=== PATIENT | female | born 1945 | race Caucasian/White ===

== ENCOUNTER → 2019-06-13 09:37 | Outpatient (CLI) | payer MEDICARE, OTHER, SELFPAY ==
--- NOTE | 2019-06-13 09:41 | US_ITS ---
STUDY: ABDOMINAL ULTRASOUND - RIGHT UPPER QUADRANT REASON FOR VISIT: Female, 74 years old right upper quadrant pain. TECHNIQUE: Ultrasound evaluation of the right upper quadrant was performed with real-time and static guan-scale imaging. TECHNICAL QUALITY: Adequate. Examination limited by bowel gas. COMPARISON: None. FINDINGS: Liver: The liver measures 14.8 cm. There is normal echogenicity of the liver. The bile ducts are within normal limits. There is hepatic color flow. The direction of portal flow is hepatopetal. There is no demonstrated mass lesion. Gallbladder: The gallbladder is not visualized. Common Bile Duct (C.B.D.): The common bile duct measures 5.0 mm. Pancreas: Normal size of the head, body and tail of the pancreas. There is normal echogenicity of the pancreas. There is no demonstrated pancreatic mass or cyst. Right Kidney: Normal size of the right kidney. The right kidney measures 8.9 cm in length. Normal renal cortex. There is no demonstrated renal mass or cyst. There is no right hydronephrosis. US/Abdomen Limited IMPRESSION: Nonvisualization of the gallbladder otherwise within normal limits examination. Electronically Signed: Mercedez Soto MD at 16:24 EST Tel , Service support ,
== END ==
PROVIDERS: Family Provider Family Medicine; PCP Family Medicine
DX: R10.84 Generalized abdominal pain (principal); R11.0 Nausea; R63.0 Anorexia
CPT/HCPCS: 76705

== ENCOUNTER → 2021-06-27 14:03 | Outpatient (CLI) | payer MEDICARE, OTHER, SELFPAY ==
--- NOTE | 2021-06-27 14:07 | BI_ITS ---
MAMMOGRAPHY - BILATERAL SCREENING REASON FOR EXAM: Female, 76 years old. Routine annual screening examination. PERTINENT HISTORY: Non-contributory. TECHNIQUE: Digital bilateral breast anil (3D mammographic acquisition) in the CC and MLO projections. 2-D mediolateral oblique (MLO) and craniocaudad (CC) views of both breasts were obtained. CAD: Full Field Digital Mammography with Computer Added Detection was performed. COMPARISON: Comparison is made with prior axillary examination 05/19/2019. FINDINGS: Breast Composition: There are scattered areas of fibroglandular density. There is a 5.3 mm x 5 mm well-defined nodule in the upper slightly medial aspect of the right breast. Correlation with ultrasound is recommended. Stable benign-appearing bilateral axillary lymph nodes. No other significant abnormalities are identified. BI/SCRN MAMM (CAD)W/ANIL BILAT IMPRESSION: 5.3 mm x 5 mm well-defined nodule in the upper slightly medial aspect of the right breast. Correlation with ultrasound is recommended. ASSESSMENT CATEGORY: BIRADS Category 0: Incomplete. Need additional imaging evaluation. A letter regarding these results will be sent to the patient by the facility within 30 days. Approximately 10% of breast cancers are not detected by mammography. A normal mammogram should not delay biopsy of a clinically suspicious abnormality. [id number] Electronically Signed: Jovan Reddy MD at 15:38 EST , Service support ,
--- NOTE | 2021-06-27 14:11 | BD_ITS ---
STUDY: DUAL ENERGY X-RAY ABSORPTIOMETRY / DXA REASON FOR EXAM: Female, 76 years old. [id number] TECHNIQUE: Bone Mineral Density (BMD) measurements of lumbar spine and bilateral hips were obtained. COMPARISON: None. FINDINGS: Lumbar Spine (L1-L4): g/cm2 (1.003) / T-score (-0.4) / Z-score (2.1) Findings are suggestive of normal bone density with a low fracture risk. Left Femur Total: g/cm2 (0.759) / T-score (-1.5) / Z-score (0.4) Left Femoral Neck: g/cm2 (0.607) / T-score (-2.2) / Z-score (0.0) Right Femur Total: g/cm2 (0.856) / T-score (-0.7) / Z-score (1.2) Right Femoral Neck: g/cm2 (0.681) / T-score (-1.5) / Z-score (0.7) BD/Dexa Bone Density Study IMPRESSION: The patient is considered osteopenic as outlined below according to World Osmin Organization (WHO) criteria with a high fracture risk. Reference Information: The T-score is the number of standard deviations above or below the standard which is normal for young adults at their peak bone mineral density. The World Health Organization (WHO) interprets the T-scores as follows: Above -1 Normal bone density Between -1 and -2.5 Osteopenia Equal to / or below -2.5 Osteoporosis As a practical clinical guideline, osteopenia may be graded as follows: Mild -1 through -1.5 Moderate -1.6 through -2.0 Severe -2.1 through -2.4 The Z-score is the number of standard deviations above or below age-matched controls. A Z-score of less than -1.5 would be considered abnormal. References: 1. NIH Osteoporosis and Related Bone Diseases www osteo.org 2. International Society for Clinical Densitometry www iscd.org 3. National Osteoporosis Foundation www nof.org Electronically Signed: Jovan Reddy MD at 14:05 EST , Service support ,
== END ==
PROVIDERS: PCP Family Medicine; Visit Provider Physician Assistant
DX: N95.1 Menopausal and female climacteric states (principal); N95.9 Unspecified menopausal and perimenopausal disorder; Z12.31 Encounter for screening mammogram for malignant neoplasm of breast; Z13.820 Encounter for screening for osteoporosis
CPT/HCPCS: 77063; 77067; 77080

== ENCOUNTER → 2021-07-02 10:51 | Outpatient (CLI) | payer MEDICARE, OTHER, SELFPAY ==
--- NOTE | 2021-07-02 10:55 | US_ITS ---
STUDY: ULTRASOUND BREAST - RIGHT REASON FOR EXAM: Female, 76 years old. Abnormal screening mammogram. TECHNIQUE: Axial and longitudinal images of the RIGHT breast were performed with a high resolution ultrasound transducer. # OF IMAGES: 14 COMPARISON: Comparison is made with prior mammogram dated 06/27/2021. FINDINGS: RIGHT Breast: 2 cysts are seen adjacent to each other at the 1 o''clock position the breast at 4 cm from the nipple. The larger cyst measures 3 mm x 3 mm x 3 mm. US/Breast Limited Unilateral IMPRESSION: The mammographic abnormality corresponds to 2 small adjacent cysts at the 1 o''clock position breast at 4 cm from the nipple. ASSESSMENT CATEGORY: BIRADS Category 2: Benign. A letter regarding these results will be sent to the patient by the facility within 30 days. Electronically Signed: Jovan Reddy MD at 12:39 EST , Service support ,
== END ==
PROVIDERS: PCP Family Medicine; Visit Provider Physician Assistant
DX: R92.2 Inconclusive mammogram (principal)
CPT/HCPCS: 76642

== ENCOUNTER 2022-05-06 08:09 | Inpatient (IN) | payer MEDICARE, OTHER, SELFPAY ==
[2022-05-06] VITALS (9 sets, daily range): BP systolic 143–176; BP diastolic 52–65; PULSE 62–75; RESP 14–16; TEMP 36.2–36.8; O2SAT 94–99; BMI 26.2; BMI 26.7
--- NOTE | 2022-05-06 08:14 | NURSING ---
NO OLD EKGS
--- NOTE | 2022-05-06 08:28 | EKG12_ITS ---
Test Reason : CP Blood Pressure : / mmHG Vent. Rate : 065 BPM Atrial Rate : 065 BPM P-R Int : 164 ms QRS Dur : 096 ms QT Int : 420 ms P-R-T Axes : 042 -08 060 degrees QTc Int : 436 ms Normal sinus rhythm Normal ECG Confirmed by JASON ROPER, ELIAS ([id number]), order editor NABILA GRIFFITHS ([id number]) on 05/08/2022 12:32:33 PM Referred By: MYRIAM Confirmed By:ELIAS GOMEZ MD
--- NOTE | 2022-05-06 08:28 | RAD_ITS ---
STUDY: X-RAY CHEST REASON FOR EXAM: Female, 77 years old. Chest pain TECHNIQUE: Single AP portable view of the chest. COMPARISON: None. FINDINGS: EKG electrodes are seen. There is elevation of the right hemidiaphragm. Mild increased markings at the right lung base suggestive of atelectasis. The left lung is clear. There is no demonstrated pleural abnormality. Normal size heart. Normal mediastinum and cherrie. Normal visualized pulmonary arteries. There is atherosclerotic calcification of the aortic arch with tortuosity. Normal visualized thoracic spine. Normal visualized ribs, clavicles, and shoulders. There is no demonstrated abnormality of the visualized soft tissue structures of the upper abdomen. RAD/Chest 1 View (Portable) IMPRESSION: There is elevation of the right hemidiaphragm with mild increased markings suggestive of a basilar atelectasis. The left lung is clear. Electronically Signed: Jovan Reddy MD at 8:57 EDT ,
--- NOTE | 2022-05-06 08:30 | EDS_ITS ---
HPI History of Present Illness Chief Complaint: Chest Pain Informant: patient Onset/Context/Timing Onset: Weeks Activity at onset: exertion Timing: Intermittent Quality: Positive for Tightness Location: Right Chest and Left Chest Current Severity: Gone Maximum Severity: Moderate Narrative Narrative: Patient present secondary to chest pain. She reports with activity over the past 3 weeks she will get a tightness across her upper chest to the shoulders and down to her elbows bilaterally. She states occasionally will go into her back. It seems to come on with exertion and gets better with rest. She will have mild shortness of breath as well. [facility] Medical History (Updated 05/06/22 @ 10:[address] Violet Remy MD) Borderline diabetes GERD (gastroesophageal reflux disease) High cholesterol Hypertension Home Medications amlodipine 5 mg tablet (Norvasc) 5 mg PO QHS 05/06/22 [History Last Taken Unknown] aspirin 81 mg chewable tablet (Aspirin Childrens) 81 mg PO DAILY 05/06/22 [History Last Taken Unknown] losartan 100 mg tablet 100 mg PO DAILY 05/06/22 [History Last Taken Unknown] metoprolol succinate 100 mg tablet,extended release 24 hr 50 mg PO DAILY 05/06/22 [History Last Taken Unknown] omeprazole 20 mg tablet,delayed release 20 mg PO DAILY 05/06/22 [History Last Taken Unknown] rosuvastatin 5 mg tablet 5 mg PO DAILY 05/06/22 [History Last Taken Unknown] Allergy/AdvReac Type Severity Reaction Status Date / Time No Known Allergies Allergy Verified 05/06/22 08:10 Social History Smoking Status: Never smoker ROS ROS ED Constitutional Constitutional ED: Denies chills or fever(s) Eyes Eyes: Denies change in vision or discharge from eye(s) ENT ENT ED: Denies discharge from eye(s), rhinorrhea or sore throat Cardiovascular Cardiovascular: Reports chest pain; Denies palpitations Respiratory/Chest Respiratory/Chest: Denies cough or dyspnea Gastrointestinal Gastrointestinal: Denies abdominal pain, nausea or vomiting Genitourinary Genitourinary ED: Denies dysuria Musculoskeletal Musculoskeletal: Reports back pain; Denies extremity pain Integumentary Denies Abrasions or rash Neurologic Neurologic: Denies headache(s) or weakness Allergic/Immunologic Allergic/Immunologic ED: Denies lip swelling or urticaria EXAM Physical Exam Const Vital Signs: 05/06/22 08:10 05/06/22 08:27 05/06/22 08:36 Temperature 97.1 F L Temperature Source Temporal Pulse Rate 73 Respiratory Rate 14 Respiratory Effort Normal Non-Labored Blood Pressure 150/58 H Blood Pressure Mean 88 Pulse Ox 99 Oxygen Delivery Method Room Air Room Air Positive well nourished and well developed General Appearance ED: well developed HEENT Reports normocephalic and head/scalp atraumatic Eyes PERRL and EOMs intact bilaterally Neck supple Chest Wall inspection of chest normal and palpation of chest normal Resp normal respiratory effort and clear to auscultation bilaterally Cardio regular rate and regular rhythm GI normal to inspection, nondistended, normoactive bowel sounds Palpation: soft Extremity normal to inspection Neuro oriented x3 and no sensory deficits noted Sensorium / Orientation: alert Motor Exam: strength 5/5 throughout Psych mental status grossly normal Skin no rashes or lesions noted Heart Score History: Highly Suspicious ECG: Normal Age: >/= 65 years Risk Factors: 1 or 2 Risk Factors Troponin: </= Normal Limit Score: 5 MDM MDM MDM Narrative Medical decision making narrative: 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 Lab work, EKG, chest x- ray obtained. Lab Data Attestation: I reviewed the patient's lab results. Labs: Laboratory Results - last 24 hr 05/06/22 05/06/22 08:27 08:27 WBC 5.1 RBC 4.28 Hgb 12.8 Hct 38.4 MCV 89.7 MCH 29.9 MCHC 33.3 RDW Std Deviation 43.5 RDW Coeff of Ana 13.2 Plt Count 179 MPV 11.4 Immature Gran % (Auto) 0.400 Neut % (Auto) 47.0 Lymph % (Auto) 38.4 [place] % (Auto) 9.9 Eos % (Auto) 3.1 Baso % (Auto) 1.2 H Absolute Neuts (auto) 2.4 Absolute Lymphs (auto) 1.97 Nucleated RBC % 0 Sodium 140 Potassium 3.6 Chloride 109 H Carbon Dioxide 26.0 Anion Gap 5 BUN 19 H Creatinine 1.01 Estim Creat Clear Calc 37.97 Est GFR (MDRD) Af Amer 68 Est GFR (MDRD) Non-Af 56 L BUN/Creatinine Ratio 18.8 Glucose 106 Calcium 9.2 Troponin I High Sens 10 Radiography Chest X-Ray - ED: 1 View, Read by ED Physician, Normal, Heart, Lungs and Mediastinum Diagnostic Testing: Clinical Impression(s) from Imaging Studies Chest X-Ray 05/06/22 08:28 IMPRESSION: There is elevation of the right hemidiaphragm with mild increased markings suggestive of a basilar atelectasis. The left lung is clear. Electronically Signed: Jovan Reddy MD at 8:57 EDT , EKG Initial EKG: Attestation: I personally reviewed and interpreted this EKG as follows: Interpretation: Sinus Rhythm (Sinus at 65 with no acute ischemia.) Treatment and Re-Evaluation Narrative: Repeat evaluation patient is resting comfortably. Lab work reviewed with patient and unremarkable at this time. Troponin is normal at 10. Chest x-ray per my interpretation reveals no acute findings. EKG reveals no obvious ischemia. Patient's story is extremely concerning for cardiac disease. She also tells me that she is avoiding doing certain activities because she knows she will get chest pain while doing them. I do feel that she would benefit from observation and stress test to rule out cardiac cause of her symptoms. I will speak with the hospitalist. Discharge Plan Triage Chief Complaint: Chest Pain ED Provider: Violet Remy Dx/Rx/DC Orders Clinical Impression: Chest pain Prescriptions: No Action metoprolol succinate 100 mg tablet extended release 24 hr 50 mg PO DAILY amlodipine [Norvasc] 5 mg tablet 5 mg PO QHS aspirin [Aspirin Childrens] 81 mg tablet,chewable 81 mg PO DAILY Label Comments: 1 tablet by mouth once a day losartan 100 mg tablet 100 mg PO DAILY rosuvastatin 5 mg tablet 5 mg PO DAILY omeprazole 20 mg tablet,delayed release (DR/EC) 20 mg PO DAILY Label Comments: 1 tablet by mouth once a day Primary Care Provider: Feliciano Aguiar Referrals: Feliciano Aguiar MD [Primary Care Provider] - Disposition Disposition: Acute Care [facility]
[2022-05-06] MEDS: Aspirin 81 MG TAB.CHEW 324 MG PO (08:46)
[2022-05-06 09:31] LABS: Absolute Lymphocyte Count 1.97 X10^3/uL (0.83-4.51); Absolute Neutrophil Count 2.4 X10^3/uL (2.0-7.7); Basophil# 0.06 X10^3/uL; Basophil% 1.2 % (0-1); Eosinophil# 0.16 X10^3/uL; Eosinophils% 3.1 % (0-5); Hematocrit 38.4 % (37-47); Hemoglobin 12.8 g/dL (12.0-15.0); Lymphocyte # 1.97 X10^3/ul (0.83-4.51); Lymphocyte % 38.4 % (19-41); Mean Corp Hgb Conc 33.3 g/dL (32-36); Mean Corpuscular Hgb 29.9 pg (27.0-32.0); Mean Corpuscular Volume 89.7 fL (81-99); Mean Platelet Vol. 11.4 fl (6.2-12.0); Monocyte# 0.51 X10^3/uL; Monocyte% 9.9 % (0-10); NRBC Flagged by Analyzer 0 % (0-5); Neutrophil # 2.41 X10^3/uL (2.7-7.7); Platelet Count 179 K/mm3 (150-450); RBC Distribution Width CV 13.2 % (11.6-14.6); RBC Distribution Width SD 43.5 fl (35.1-43.9); Red Blood Count 4.28 M/mm3 (4.2-5.4); White Blood Count 5.1 K/mm3 (4.4-11.0)
[2022-05-06 09:50] LABS: Anion Gap 5 (5-15); BUN 19 mg/dL (7-18); BUN/Creat Ratio 18.8 RATIO (10-20); Calcium,Total 9.2 mg/dL (8.5-10.1); Chloride 109 mmol/L (98-107); Creatinine, Serum 1.01 mg/dL (0.55-1.02); EST Glomerular Filtration Rate 56 mL/min (>60); Est Glom Filt Rate - Afr Amer 68 mL/min (>60); Estimated Creatinine Clearance 37.97 ml/min; Glucose 106 mg/dL (74-106); Potassium 3.6 mmol/L (3.5-5.1); Sodium Level 140 mmol/L (136-145); Troponin-I HS (w/2H Reflex) 10 pg/mL (3.0-54.0)
--- NOTE | 2022-05-06 10:24 | NURSING ---
DR BECERRA FOR DR MIGUEL
--- NOTE | 2022-05-06 10:27 | NURSING ---
PCU OBS BECERRA CHEST PAIN
--- NOTE | 2022-05-06 11:17 | PCM.HP.STD ---
HPI - General General Date of Admission: 05/06/22 Date of Service: 05/06/22 Chief Complaint: Chest pain HPI Narrative VENUS RITTER, is a 77 F with a [facility] medical history of hypertension who presented to [facility] 05/06/2022 with 3 weeks of chest and arm tightness. Reports that the tightness would be in her chest and radiate up to her neck and into her arms and last 8 to 10 minutes anywhere from a 6 out of 10 in pain until yesterday when it was over an 8 out of 10 in pain. Reports pain is significantly worse with exertion and relieved with rest. Has begun altering her daily activities and no longer taking the stairs due to the pain. Denies any history of cardiac problems. Denies any chest pain. Currently feeling somewhat shaky and anxious being in the hospital but denies any other concerns. Only other associated symptom during the tightness was one time when she felt her face getting flushed. In the ED troponins obtained which were negative at this time, EKG with no specific ST changes. Hospitalist contacted for admission for chest pain work-up. At the time of exam patient reported she was not having chest pain because she was not moving around. Did give convincing history of typical chest pain. Denies present shortness of breath, no nausea vomiting, no other complaints at this time [facility] Medical History (Updated 05/06/22 @ 15:[address] Kwan Umanzor MD) Borderline diabetes GERD (gastroesophageal reflux disease) High cholesterol Hypertension Home Medications amlodipine 5 mg tablet (Norvasc) 5 mg PO QHS 05/06/22 [History Last Taken Unknown] aspirin 81 mg chewable tablet (Aspirin Childrens) 81 mg PO DAILY 05/06/22 [History Last Taken Unknown] losartan 100 mg tablet 100 mg PO DAILY 05/06/22 [History Last Taken Unknown] metoprolol succinate 100 mg tablet,extended release 24 hr 50 mg PO DAILY 05/06/22 [History Last Taken Unknown] omeprazole 20 mg tablet,delayed release 20 mg PO DAILY 05/06/22 [History Last Taken Unknown] rosuvastatin 5 mg tablet 5 mg PO DAILY 05/06/22 [History Last Taken Unknown] Allergy/AdvReac Type Severity Reaction Status Date / Time No Known Allergies Allergy Verified 05/06/22 08:10 Social History Smoking Status: Never smoker ROS Constitutional Constitutional: Denies change in weight, chills, fever(s) or night sweats Eyes Eyes: Denies change in vision ENT HEENT: Denies headache(s), nasal congestion or sore throat Cardiovascular Cardiovascular: Reports chest pain and other Details: Intermittent chest pain up to 8 out of 10, not present at time of exam ; Denies palpitations Respiratory/Chest Respiratory/Chest: Denies cough or productive cough Gastrointestinal Gastrointestinal: Reports other Details: denies changes in bowel or bladder ; Denies abdominal pain Genitourinary Genitourinary: Reports other Details: denies changes in urination Musculoskeletal Musculoskeletal: Denies joint pain Neurologic Neurologic: Denies dizziness, focal weakness, headache(s), numbness or tingling Psychiatric Psychiatric: Denies anxiety Hematologic/Lymphatic Hematologic/Lymphatic: Denies easy bleeding Allergic/Immunologic Allergic/Immunologic: Reports other Details: denies rashes Vital Signs Vital Signs Vital Signs: 05/06/22 08:10 05/06/22 08:27 05/06/22 08:36 Temperature 97.1 F L Temperature Source Temporal Pulse Rate 73 Respiratory Rate 14 Respiratory Effort Normal Non-Labored Blood Pressure 150/58 H Blood Pressure Mean 88 Pulse Ox 99 Oxygen Delivery Method Room Air Room Air 05/06/22 10:36 Temperature 98.0 F Temperature Source Oral Pulse Rate 62 Respiratory Rate 14 Respiratory Effort Blood Pressure 160/60 H Blood Pressure Mean 93 Pulse Ox 96 Oxygen Delivery Method Room Air Weight Weight: 67.2 kg Body Mass Index (BMI) 26.2 Physical Exam Const alert and oriented x3 General Appearance: cooperative and comfortable HEENT normocephalic and head/scalp atraumatic Eyes EOMs intact bilaterally Neck supple Resp normal respiratory effort and clear to auscultation bilaterally Cardio regular rate and regular rhythm Cardio Narrative: Noted systolic ejection murmur at upper sternal borders GI soft to palpation, non-tender and non-distended Extremity normal to inspection Skin no rashes or lesions noted Neuro moves all extremities Psych affect normal Results Lab / Micro Data Result Diagrams: 05/06/22 08:27 05/06/22 08:27 Labs: Laboratory Results - last 24 hr 05/06/22 08:27: WBC 5.1, RBC 4.28, Hgb 12.8, Hct 38.4, MCV 89.7, MCH 29.9, MCHC 33.3, RDW Std Deviation 43.5, RDW Coeff of Ana 13.2, Plt Count 179, MPV 11.4, Immature Gran % (Auto) 0.400, Neut % (Auto) 47.0, Lymph % (Auto) 38.4, [place] % (Auto) 9.9, Eos % (Auto) 3.1, Baso % (Auto) 1.2 H, Absolute Neuts (auto) 2.4, Absolute Lymphs (auto) 1.97, Nucleated RBC % 0 05/06/22 08:27: Sodium 140, Potassium 3.6, Chloride 109 H, Carbon Dioxide 26.0, Anion Gap 5, BUN 19 H, Creatinine 1.01, Estim Creat Clear Calc 37.97, Est GFR (MDRD) Af Amer 68, Est GFR (MDRD) Non-Af 56 L, BUN/Creatinine Ratio 18.8, Glucose 106, Calcium 9.2, Troponin I High Sens 10 Radiology Impression Chest X-Ray 05/06/22 08:28 IMPRESSION: There is elevation of the right hemidiaphragm with mild increased markings suggestive of a basilar atelectasis. The left lung is clear. Electronically Signed: Jovan Reddy MD at 8:57 EDT , Assessment & Plan Assessment/Plan (1) Unstable angina: PLAN: Plan #Unstable angina Troponins thus far negative, ECG with no acute changes Given history consistent with typical chest pain as well as heart score of 6 she will be admitted to telemetry Cardiology consulted Aspirin, statin, clopidogrel, heparin drip Trending troponins Lipid panel, A1c, TSH Continue home beta-franklyn Nitro as needed Risk factor modification Cardiology has evaluated and plan for left heart cath in the a.m. Did have echo obtained which showed EF of 65%, mild focal mitral calcification of anterior leaflet with mild mitral insufficiency, mild to moderate tricuspid insufficiency, mild to moderate aortic stenosis with mild aortic insufficiency. I RVSP estimated to be 35, no evidence of diastolic dysfunction Last cardiac work-up was 30 years ago which she reports she thinks was routine, has never had chest pain or similar symptoms in the past #Hypertension Continue losartan 100 mg, amlodipine 5 mg, metoprolol succinate 50 mg daily #DVT prophylaxis: On heparin drip due to unstable angina Aminah Louis MD Charges/Coding Visit Charges Inpatient E&M: 42915 Init Hosp L2
--- NOTE | 2022-05-06 11:21 | ECHOCS_ITS ---
Reason For Study: CP Procedure This was a 2D Doppler, Color Flow transthoracic echocardiogram. The study was technically difficult. Contrast injection was performed. Exam performed portable in patient room. Left Ventricle Normal LV size. Left ventricular systolic function is normal. The estimated ejection fraction is 65 %. No evidence for diastolic dysfunction. No regional wall motion abnormalities noted. Right Ventricle Normal RV size. Normal systolic function. Atria Normal left atrium. Normal right atrium. No doppler evidence for ASD. Mitral Valve There is no mitral annular calcification. Mild focal mitral valve calcification of the anterior leaflet. Mild (1+) mitral valve insufficiency. Tricuspid Valve Normal tricuspid valve. Mild to moderate (1-2+) tricuspid valve insufficiency. Right ventricular systolic pressure estimated to be 35 mmHg. Aortic Valve Trisinus/trileaflet aortic valve. Mild diffuse aortic valve thickening. Moderate diffuse aortic valve calcification. Mild to moderate aortic stenosis. Mild (1+) aortic valve insufficiency. Pulmonic Valve The pulmonic valve is not well visualized. Great Vessels Normal sized aortic root. Pericardium/Pleural No pericardial effusion. Medication Diluted definity 1ml given slow IV push to enhance endocardial definition. MMode/2D Measurements & Calculations LVIDd: 4.0 cm IVSd: 0.89 cm LVOT diam: 2.0 cm LVIDs: 2.9 cm LVPWd: 1.1 cm RVDd: 2.7 cm FS: 27.5 % LVOT area: 3.1 cm2 Ao root diam: 2.7 cm LAV(MOD-bp): 40.5 ml LA A4 area: 13.1 cm2 LA dimension: 3.9 cm LAV(MOD-bp) Indexed: 22.5 ml/m2 LAV(MOD-sp2): 48.0 ml LAV(MOD-sp4): 30.9 ml RA A4 area: 9.5 cm2 Time Measurements MV dec time: 0.19 sec Doppler Measurements & Calculations MV E max jarett: 82.1 cm/sec Lat Peak E' Jarett: 10.0 cm/sec Med Peak E' Jarett: 8.9 cm/sec MV A max jarett: 85.7 cm/sec E/E' lat: 8.2 E/E' med: 9.3 MV E/A: 0.96 MV V2 max: 124.1 cm/sec MV P1/2t max jarett: 125.0 cm/sec Ao V2 max: 272.0 cm/sec MV max P.2 mmHg MV P1/2t: 76.3 msec Ao max P.6 mmHg MV V2 mean: 59.4 cm/sec MV dec slope: 480.0 cm/sec2 Ao V2 mean: 191.6 cm/sec MV mean P.8 mmHg Ao mean P.5 mmHg MV V2 VTI: 29.2 cm MVA(P1/2t): 2.9 cm2 Ao V2 VTI: 67.1 cm MVA(VTI): 3.2 cm2 YOLI(I,D): 1.4 cm2 YOLI(V,D): 1.3 cm2 AI max jarett: 456.0 cm/sec LV V1 max: 117.6 cm/sec SV(LVOT): 94.1 ml AI max P.2 mmHg LV V1 max P.7 mmHg AI dec slope: 390.0 cm/sec2 LV V1 mean P.9 mmHg AI P1/2t: 342.5 msec LV V1 mean: 94.8 cm/sec LV V1 VTI: 30.6 cm PA V2 max: 95.8 cm/sec TR max jarett: 282.0 cm/sec TR max P.1 mmHg ECHO/Echo Complete W/ Contrast Interpretation Summary The study was technically difficult. Contrast injection was performed. Left ventricular systolic function is normal. The estimated ejection fraction is 65 %. Mild focal mitral valve calcification of the anterior leaflet. Mild (1+) mitral valve insufficiency. Mild to moderate (1-2+) tricuspid valve insufficiency. Mild to moderate aortic stenosis. Mild (1+) aortic valve insufficiency. Right ventricular systolic pressure estimated to be 35 mmHg. No evidence for diastolic dysfunction. Ordering Physician: Aminah Louis Performed By: Adriel Cota RCS
[2022-05-06 11:28] LABS: Reflex Troponin-HS? (from REC) Y
[2022-05-06 11:52] LABS: Troponin-I HS 17 pg/mL (3.0-54.0)
--- NOTE | 2022-05-06 12:09 | EKG12_ITS ---
Test Reason : AM EKG Blood Pressure : / mmHG Vent. Rate : 065 BPM Atrial Rate : 065 BPM P-R Int : 158 ms QRS Dur : 090 ms QT Int : 418 ms P-R-T Axes : 040 -10 034 degrees QTc Int : 434 ms Normal sinus rhythm Minimal voltage criteria for LVH, may be normal variant ( R in aVL ) Borderline ECG Confirmed by JASON ROPER, ELIAS ([id number]), department editor NABILA GRIFFITHS ([id number]) on 05/08/2022 12:48:23 PM Referred By: Confirmed By:ELIAS GOMEZ MD
[2022-05-06] MEDS: Clopidogrel Bisulfate 75 MG Tablet PO (12:11)
[2022-05-06 12:25] LABS: Prothrombin Time (Protime)PT. 12.5 SECONDS (11.7-14.9)
[2022-05-06 12:26] LABS: Partial Thromboplast Time 28.1 Seconds (24.1-36.2)
[2022-05-06] MEDS: Heparin Injection (Vial) 5,000 UNIT/ML VIAL 4000 UNIT IV (12:31)
[2022-05-06] MEDS: HEPARIN/D5w 25,000 UNITS 25,000 UNITS/250 ML IV.SOLN. 8 UNITS CONT INF (12:31)
[2022-05-06] MEDS: 0.9% Saline Lock 10 ML Syringe IV (12:31)
--- NOTE | 2022-05-06 14:57 | PCM.CONS.C ---
Assessment & Plan Assessment/Plan (1) Unstable angina: PLAN: The patient has symptoms of unstable angina pectoris/accelerating angina pectoris. Thus far her cardiac enzymes have been negative. Her ECG demonstrates no acute changes. However, based upon her history, her cardiovascular risk factors, etc., it was felt reasonable that she be further evaluated. Based upon her accelerating symptoms it was thought reasonable this would be performed in the cardiac catheterization laboratory. The procedure and risk were discussed with her. She was agreeable to this approach. In the interim she will continue medical therapy which will include agent such as aspirin, antiplatelet therapy, anticoagulant therapy, nitrates as needed, beta-blockers, lipid-lowering agents, etc. (2) Cardiac murmur: PLAN: The patient has a history of a cardiac murmur. She will have further evaluation with a transthoracic echocardiogram to evaluate her cardiac anatomy and physiology to assist in evaluation and care of her overall cardiovascular process. (3) HLD (hyperlipidemia): PLAN: The patient does have a history of hyperlipidemia. She should continue risk factor modification medical therapy as deemed appropriate. (4) HTN (hypertension): PLAN: The patient has a history of hypertension. Her blood pressures will need to be followed as she states her blood pressures at home are noted to increase after she has these events. She may need adjustment of her medications over time (5) Diabetes mellitus: PLAN: She will continue evaluation care per internal medicine. (6) GERD (gastroesophageal reflux disease): PLAN: She states she does have a history of GERD. She notes these symptoms are different from her current symptoms. She will continue her GERD evaluation per internal medicine as deemed appropriate Addt'l Comments The patient's case was discussed and reviewed with the patient, her , and Dr. Bansal. This note was generated using a voice recognition system and there may be incorrect words, spelling or punctuation that were not noted when reviewing the office note prior to saving. HPI Consult Data Date of Consult: 05/06/22 HPI Narrative HPI Narrative: VENUS RITTER, is a 77 year old white female who presents for cardiology consultation for concerns of accelerating angina pectoris superimposed upon a history of hyperlipidemia, hypertension, borderline diabetes , and GERD. She states that for potentially the last 3 weeks she is noted episodes with exertion involve discomfort radiating across to her chest into both upper extremities and across to her back. She may be somewhat dyspneic with these sensations. She does not recall having any nausea, emesis, or diaphoresis. She states these episodes have been increasing with less and less physical activity/exertion. She notes that they can occur when she is walking across her room, when she is making her bed, and when she is going up the stairs. She states as these episodes have been increasing she has been curtailing her activities. She does not recall any orthopnea or PND or peripheral pitting edema. There has been no near-syncope or syncope. She states as her symptoms worsen she also felt somewhat of a warm sensation. Based upon her worsening symptoms she presented to the emergency department for further evaluation. There she had cardiac enzymes which were negative. Her ECG demonstrated sinus rhythm. Her chest x-ray did not appear to demonstrate any acute changes per radiology. She was separately brought into the hospital for concerns of accelerating angina pectoris for further cardiovascular evaluation. She also notes that she checks her blood pressures at home. She states following these events she notes that her blood pressures increase. She is not sure whether this is secondary to her events or is an issue that is triggering her events. She does note she has a history of a cardiac murmur. She states this is not new. She believes she underwent evaluation for this with a transthoracic echocardiogram and [place], [place] many years ago. She does not recall requiring any cardiovascular follow-up of this issue. [facility] Medical History (Updated 05/06/22 @ 15:[address] Kwan Umanzor MD) Borderline diabetes GERD (gastroesophageal reflux disease) High cholesterol Hypertension Home Medications amlodipine 5 mg tablet (Norvasc) 5 mg PO QHS 05/06/22 [History Last Taken Unknown] aspirin 81 mg chewable tablet (Aspirin Childrens) 81 mg PO DAILY 05/06/22 [History Last Taken Unknown] losartan 100 mg tablet 100 mg PO DAILY 05/06/22 [History Last Taken Unknown] metoprolol succinate 100 mg tablet,extended release 24 hr 50 mg PO DAILY 05/06/22 [History Last Taken Unknown] omeprazole 20 mg tablet,delayed release 20 mg PO DAILY 05/06/22 [History Last Taken Unknown] rosuvastatin 5 mg tablet 5 mg PO DAILY 05/06/22 [History Last Taken Unknown] Allergy/AdvReac Type Severity Reaction Status Date / Time No Known Allergies Allergy Verified 05/06/22 08:10 Social History Smoking Status: Never smoker ROS Constitutional Constitutional: Reports as per HPI Eyes Eyes: Reports as per HPI ENT HEENT: Reports as per HPI Cardiovascular Cardiovascular: Reports chest pain with activity Respiratory/Chest Respiratory/Chest: Reports as per HPI Gastrointestinal Gastrointestinal: Reports as per HPI Genitourinary Genitourinary: Reports as per HPI Musculoskeletal Musculoskeletal: Reports as per HPI Integumentary Integumentary: Reports as per HPI Neurologic Neurologic: Reports as per HPI Psychiatric Psychiatric: Reports as per HPI Physical Exam Const alert, oriented x3, no apparent distress and healthy appearing Orientation / Consciousness: awake HEENT normocephalic, head/scalp atraumatic and hearing grossly normal bilaterally Eyes PERRL and conjunctivae normal Neck full ROM, no lymphadenopathy, supple, no JVD and no carotid bruits Carotids: normal carotid upstroke Chest inspection of chest normal Resp normal respiratory effort and clear to auscultation bilaterally Cardio regular rate, regular rhythm, S1 normal heart sound and S2 normal heart sound Heart Sounds: murmur systolic III/ harsh left sternal border, LVOT and sternal notch GI normal to inspection, nondistended, normoactive bowel sounds Extremity no pedal edema Skin no rashes or lesions noted Psych mental status grossly normal Risk Stratification Risk Stratification Applicable: Yes Age >/= 65: Yes >/= 3 CAD Risk Factors (HTN, HLD, DM, family hx of CAD, or current smoker): Yes Aspirin Use in the Past 7 Days: Yes Severe Angina (>/= episodes in 24 hours): Yes EKG ST Changes >/= 0.5mm: No Positive Cardiac Marker: No AIDE Risk Stratification Score: 4 AIDE % Risk: 20% Risk Procedure Criteria Type of Procedure Procedure Type: Elective Elective Risks - COVID COVID Risk Discussion: The surgeon/proceduralist and patient have discussed in detail the risk of exposure to and/or potential harm posed by the COVID-19 virus with having a surgery/procedure at this time versus the risk of delaying the surgery/procedure. It is not possible to know either the risk of delaying the surgery or procedure or chance of getting an infection with perfect accuracy, but a joint decision was made between the patient and the surgeon/proceduralist to proceed at this time with the scheduled surgery/procedure as indicated on the consent form. Objective Data Vital Signs: Vital Signs Temp Pulse Resp BP Pulse Ox O2 Del Method 97.8 F 68 14 169/54 H 98 Room Air 05/06/22 11:33 05/06/22 11:40 05/06/22 11:33 05/06/22 11:33 05/06/22 14:03 05/06/22 14:03 Oxygen Delivery Method Room Air Weight: 146 lb 2.664 oz Body Mass Index (BMI) 26.7 Lab / Micro Data Result Diagrams: 05/06/22 08:27 05/06/22 08:27 Labs: Laboratory Results - last 24 hr 05/06/22 08:27: WBC 5.1, RBC 4.28, Hgb 12.8, Hct 38.4, MCV 89.7, MCH 29.9, MCHC 33.3, RDW Std Deviation 43.5, RDW Coeff of Ana 13.2, Plt Count 179, MPV 11.4, Immature Gran % (Auto) 0.400, Neut % (Auto) 47.0, Lymph % (Auto) 38.4, Kinney % (Auto) 9.9, Eos % (Auto) 3.1, Baso % (Auto) 1.2 H, Absolute Neuts (auto) 2.4, Absolute Lymphs (auto) 1.97, Nucleated RBC % 0 05/06/22 08:27: Sodium 140, Potassium 3.6, Chloride 109 H, Carbon Dioxide 26.0, Anion Gap 5, BUN 19 H, Creatinine 1.01, Estim Creat Clear Calc 37.97, Est GFR (MDRD) Af Amer 68, Est GFR (MDRD) Non-Af 56 L, BUN/Creatinine Ratio 18.8, Glucose 106, Calcium 9.2, Troponin I High Sens 10 05/06/22 08:27: PT 12.5, INR 1.0, APTT 28.1 05/06/22 10:42: Troponin I High Sens 17 Cardiology Labs/Tests 05/06/22 08:27: WBC 5.1, RBC 4.28, Hgb 12.8, Hct 38.4, MCV 89.7, MCH 29.9, MCHC 33.3, Plt Count 179, MPV 11.4, Immature Gran % (Auto) 0.400, Neut % (Auto) 47.0, Lymph % (Auto) 38.4, Kin[place] % (Auto) 9.9, Eos % (Auto) 3.1, Baso % (Auto) 1.2 H, Absolute Neuts (auto) 2.4, Nucleated RBC % 0 05/06/22 08:27: Sodium 140, Potassium 3.6, Chloride 109 H, Carbon Dioxide 26.0, Anion Gap 5, BUN 19 H, Creatinine 1.01, Est GFR (MDRD) Af Amer 68, Est GFR (MDRD) Non-Af 56 L, BUN/Creatinine Ratio 18.8, Glucose 106, Calcium 9.2 05/06/22 08:27: PT 12.5, INR 1.0, APTT 28.1 Rhythm: Sinus rhythm EKG: Sinus rhythm Radiography Diagnostic Testing: Radiology Impression Chest X-Ray 05/06/22 08:28 IMPRESSION: There is elevation of the right hemidiaphragm with mild increased markings suggestive of a basilar atelectasis. The left lung is clear. Electronically Signed: Jovan Reddy MD at 8:57 EDT ,
[2022-05-06 15:20] LABS: Troponin-I HS 17 pg/mL (3.0-54.0)
--- NOTE | 2022-05-06 15:22 | CHAPLAIN ---
Type of Pastoral Visit _x__ Initial Visit ___ Follow-up Visit ___ On-call Visit ___ General Patient Visit ___ Spiritual Assessment ___ Family Conference ___ Bereavement ___ Rapid Response ___ Code Blue ___ Other (describe below) Pastoral Care Referral From _x__ Patient ___ Family ___ Nurse ___ Physician ___ Water Project Engineer ___ Equipment Man ___ Other (describe below) Sacrament/Intervention _x__ Active listening ___ Anointing ___ Shinto ___ Bereavement ___ Communion _x__ Che exploration ___ ___ Life review _x__ Prayer ___ Reconciliation ___ Sacrament of Sick ___ Supportive presence ___ Wedding ___ Other (describe below) Pastoral Comments patient welcomes visit and prayer; pt states that she just hopes to be reassured that her health is okay and is waiting on testings; pt states she has support and a son comes into room soon into this visit; pt does have a concern about finding a new worship as she is unattached at this time
[2022-05-06 19:37] LABS: Partial Thromboplast Time 121.7 Seconds (24.1-36.2)
[2022-05-06] MEDS: amLODIPine 5 MG Tablet PO (21:39)
[2022-05-06] MEDS: Atorvastatin Calcium 40 MG Tablet PO (21:39)
[2022-05-07] VITALS (16 sets, daily range): BP systolic 109–158; BP diastolic 51–74; PULSE 59–75; RESP 16; TEMP 36.4–37.1; O2SAT 96–99
--- NOTE | 2022-05-07 00:20 | NURSING ---
Pt c/o some chest pain radiating to shoulders, arms, and right side of jaw around 2114 while giving HS meds. Pt offered pain medications, but said that it actually was going away and she did not want anything for it.
[2022-05-07 03:26] LABS: Absolute Lymphocyte Count 2.04 X10^3/uL (0.83-4.51); Absolute Neutrophil Count 2.9 X10^3/uL (2.0-7.7); Basophil# 0.04 X10^3/uL; Basophil% 0.7 % (0-1); Eosinophil# 0.15 X10^3/uL; Eosinophils% 2.7 % (0-5); Hematocrit 35.4 % (37-47); Hemoglobin 11.9 g/dL (12.0-15.0); Lymphocyte # 2.04 X10^3/ul (0.83-4.51); Lymphocyte % 36.2 % (19-41); Mean Corp Hgb Conc 33.6 g/dL (32-36); Mean Corpuscular Hgb 29.7 pg (27.0-32.0); Mean Corpuscular Volume 88.3 fL (81-99); Mean Platelet Vol. 11.2 fl (6.2-12.0); Monocyte# 0.54 X10^3/uL; Monocyte% 9.6 % (0-10); NRBC Flagged by Analyzer 0 % (0-5); Neutrophil # 2.86 X10^3/uL (2.7-7.7); Neutrophil % 50.6 % (47-70); Platelet Count 158 K/mm3 (150-450); RBC Distribution Width CV 13.2 % (11.6-14.6); RBC Distribution Width SD 42.6 fl (35.1-43.9); Red Blood Count 4.01 M/mm3 (4.2-5.4); White Blood Count 5.6 K/mm3 (4.4-11.0)
[2022-05-07 03:37] LABS: Partial Thromboplast Time 56.7 Seconds (24.1-36.2)
[2022-05-07 03:56] LABS: AST(SGOT) 26 U/L (15-37); Alanine Aminotransfer ALT/SGPT 28 U/L (13-56); Albumin, Serum 3.3 g/dL (3.2-5.0); Alkaline Phosphatase 63 U/L (45-117); Anion Gap 6 (5-15); BUN 17 mg/dL (7-18); BUN/Creat Ratio 16.8 RATIO (10-20); Calcium,Total 8.8 mg/dL (8.5-10.1); Chloride 110 mmol/L (98-107); Cholesterol 121 mg/dL (200); Creatinine, Serum 1.01 mg/dL (0.55-1.02); EST Glomerular Filtration Rate 56 mL/min (>60); Est Glom Filt Rate - Afr Amer 68 mL/min (>60); Estimated Creatinine Clearance 36.31 ml/min; Globulin 3.4 g/dL (2.2-4.2); Glucose 108 mg/dL (74-106); High Density Lipoprotein 55 mg/dL; Magnesium 2.1 mg/dL (1.6-2.6); Potassium 3.8 mmol/L (3.5-5.1); Protein, Total 6.7 g/dL (6.4-8.2); Sodium Level 140 mmol/L (136-145); Thyroid Stim Hormone (TSH) 2.88 uIU/mL (0.358-3.74); Triglycerides 86 mg/dL; Very Low Density Lipoprotein 17 mg/dL (5-40)
--- NOTE | 2022-05-07 05:00 | EKG12_ITS ---
Test Reason : Blood Pressure : / mmHG Vent. Rate : 062 BPM Atrial Rate : 062 BPM P-R Int : 162 ms QRS Dur : 094 ms QT Int : 436 ms P-R-T Axes : 037 -02 047 degrees QTc Int : 442 ms Normal sinus rhythm Normal ECG Confirmed by JASON ROPER, ELIAS ([id number]), order editor NABILA GRIFFITHS ([id number]) on 05/08/2022 12:48:47 PM Referred By: HERNAN Confirmed By:ELIAS GOMEZ MD
[2022-05-07] MEDS: Losartan Potassium 100 MG Tablet PO (06:24)
[2022-05-07] MEDS: 0.9% Saline Lock 10 ML Syringe IV (06:24)
[2022-05-07] MEDS: 0.9% Normal Saline 1,000 ML 15 ML IV (06:24)
[2022-05-07] MEDS: Clopidogrel Bisulfate 75 MG Tablet PO (06:24)
[2022-05-07] MEDS: Aspirin 81 MG TAB.CHEW PO (06:24)
[2022-05-07] MEDS: Metoprolol(XL)Succ 50 MG Tablet PO (06:24)
--- NOTE | 2022-05-07 07:01 | PCM.PN.HOSP ---
Subjective Subjective DOS 05/07/2022 CC: Chest pain Reports this morning she got up to go to the bathroom and had the same chest pain, improving now that she is sitting down. No significant changes in breathing, did feel like she had a tickle in her throat and was coughing slightly, no production. Denies any changes in bowel or bladder. No swelling. For left heart cath this a.m. Objective Data Objective Data Vital Signs: Vital Signs Temp Pulse Resp BP Pulse Ox O2 Del Method 98.1 F 66 16 137/74 H 96 Room Air 05/07/22 06:25 05/07/22 06:25 05/07/22 06:25 05/07/22 06:25 05/07/22 06:25 05/07/22 06:25 Oxygen Delivery Method Room Air Weight: 66.3 kg Body Mass Index (BMI) 26.7 Intake & Output: Intake and Output for Last 24 Hours 05/05/22 05/06/22 05/07/22 23:59 23:59 23:59 Intake Total 57.2 / 57.2 34.17 / 34.17 Balance 57.2 / 57.2 34.17 / 34.17 Lab / Micro Data Result Diagrams: 05/07/22 03:18 05/07/22 03:18 Labs: Laboratory Results - last 24 hr 05/06/22 08:27: WBC 5.1, RBC 4.28, Hgb 12.8, Hct 38.4, MCV 89.7, MCH 29.9, MCHC 33.3, RDW Std Deviation 43.5, RDW Coeff of Ana 13.2, Plt Count 179, MPV 11.4, Immature Gran % (Auto) 0.400, Neut % (Auto) 47.0, Lymph % (Auto) 38.4, [place] % (Auto) 9.9, Eos % (Auto) 3.1, Baso % (Auto) 1.2 H, Absolute Neuts (auto) 2.4, Absolute Lymphs (auto) 1.97, Nucleated RBC % 0 05/06/22 08:27: Sodium 140, Potassium 3.6, Chloride 109 H, Carbon Dioxide 26.0, Anion Gap 5, BUN 19 H, Creatinine 1.01, Estim Creat Clear Calc 37.97, Est GFR (MDRD) Af Amer 68, Est GFR (MDRD) Non-Af 56 L, BUN/Creatinine Ratio 18.8, Glucose 106, Calcium 9.2, Troponin I High Sens 10 05/06/22 08:27: PT 12.5, INR 1.0, APTT 28.1 05/06/22 10:42: Troponin I High Sens 17 05/06/22 14:37: Troponin I High Sens 17 05/06/22 18:30: APTT 121.7 H* 05/07/22 03:18: WBC 5.6, RBC 4.01 L, Hgb 11.9 L, Hct 35.4 L, MCV 88.3, MCH 29.7, MCHC 33.6, RDW Std Deviation 42.6, RDW Coeff of Ana 13.2, Plt Count 158, MPV 11.2, Immature Gran % (Auto) 0.200, Neut % (Auto) 50.6, Lymph % (Auto) 36.2, [place] % (Auto) 9.6, Eos % (Auto) 2.7, Baso % (Auto) 0.7, Absolute Neuts (auto) 2.9, Absolute Lymphs (auto) 2.04, Nucleated RBC % 0 05/07/22 03:18: Sodium 140, Potassium 3.8, Chloride 110 H, Carbon Dioxide 24.0, Anion Gap 6, BUN 17, Creatinine 1.01, Estim Creat Clear Calc 36.31, Est GFR (MDRD) Af Amer 68, Est GFR (MDRD) Non-Af 56 L, BUN/Creatinine Ratio 16.8, Glucose 108 H, Calcium 8.8, Magnesium 2.1, Total Bilirubin 1.20 H, AST 26, ALT 28, Alkaline Phosphatase 63, Total Protein 6.7, Albumin 3.3, Globulin 3.4, Albumin/Globulin Ratio 1.0, Triglycerides 86, Cholesterol 121, LDL Cholesterol 49, VLDL Cholesterol 17, HDL Cholesterol 55, TSH 2.88 05/07/22 03:18: APTT 56.7 H Radiography Diagnostic Testing: Radiology Impression Chest X-Ray 05/06/22 08:28 IMPRESSION: There is elevation of the right hemidiaphragm with mild increased markings suggestive of a basilar atelectasis. The left lung is clear. Electronically Signed: Jovan Reddy MD at 8:57 EDT , Echocardiogram 05/06/22 11:21 Interpretation Summary The study was technically difficult. Contrast injection was performed. Left ventricular systolic function is normal. The estimated ejection fraction is 65 %. Mild focal mitral valve calcification of the anterior leaflet. Mild (1+) mitral valve insufficiency. Mild to moderate (1-2+) tricuspid valve insufficiency. Mild to moderate aortic stenosis. Mild (1+) aortic valve insufficiency. Right ventricular systolic pressure estimated to be 35 mmHg. No evidence for diastolic dysfunction. Ordering Physician: Aminah Louis Performed By: Adriel Cota RCS Physical Exam Const alert and oriented x3 General Appearance: cooperative and comfortable HEENT normocephalic and head/scalp atraumatic Eyes EOMs intact bilaterally Neck supple Resp normal respiratory effort and clear to auscultation bilaterally Cardio regular rate and regular rhythm Cardio Narrative: Noted systolic ejection murmur at upper sternal borders GI soft to palpation, non-tender and non-distended Extremity normal to inspection Skin no rashes or lesions noted Neuro moves all extremities Psych affect normal Assessment & Plan Assessment/Plan (1) Unstable angina: PLAN: Plan #Unstable angina Troponins negative, ECG with no changes Given history consistent with typical chest pain as well as heart score of 6 she will be admitted to telemetry Cardiology consulted?left heart cath this a.m., further dispo per findings/intervention Aspirin, statin, clopidogrel, heparin drip Lipid panel, A1c, TSH Continue home beta-franklyn Nitro as needed Risk factor modification Did have echo obtained which showed EF of 65%, mild focal mitral calcification of anterior leaflet with mild mitral insufficiency, mild to moderate tricuspid insufficiency, mild to moderate aortic stenosis with mild aortic insufficiency. I RVSP estimated to be 35, no evidence of diastolic dysfunction Last cardiac work-up was 30 years ago which she reports she thinks was routine, has never had chest pain or similar symptoms in the past #Hypertension Continue losartan 100 mg, amlodipine 5 mg, metoprolol succinate 50 mg daily #DVT prophylaxis: On heparin drip due to unstable angina Aminah Louis MD Charges/Coding Visit Charges Inpatient E&M: 91039 Subs Hosp L2
--- NOTE | 2022-05-07 07:17 | NURSING ---
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
[2022-05-07 08:54] LABS: Hemoglobin A1c 6.2 % (3.8-5.6)
--- NOTE | 2022-05-07 08:54 | CL.D_ITS ---
Patient Name: VENUS RITTER Study Date: 05/07/2022 Performing: Kwan Umanzor MD Ht: 62 inches 157.48 cm : 1945 Wt: 146.17 lbs 66.3 kg Age: 77 Gender: female BSA: 1.67 PROCEDURE(S) PERFORMED DC02-([id number])[facility] CLINICAL PROFILE AND INDICATIONS Indications: Worsening Angina, Valvular Disease Heart Failure: None Stress/Imaging Stress/Image Study Performed: No Angina Classification Anginal Classification w/in 2 Weeks: CCS III CAD Presentations: Unstable angina. CONCLUSIONS [place] Multivessel CAD RECOMMENDATIONS Risk factor modification Medical therapy Referred for immediate PCI DESCRIPTION OF PROCEDURE The patient arrived to the procedure lab. The risks and benefits of the procedure as well as a full description of our services here and current unavailability of surgical backup were fully explained to the patient and/or their significant other prior to the catheterization. The Timeout was completed, verifying the correct patient and procedure. The patient's procedural site was prepped and draped in the usual fashion. Local anesthetic was given subcutaneously to right radial region with Lidocaine 2%. Using a modified Seldinger technique, arterial access was obtained via the right radial artery, a 6Fr sheath was inserted. Left Coronary Artery selective angiography was performed in multiple views using a 5 Fr. 4.0 [place] catheter. Right Coronary Artery selective angiography was then performed in multiple views using a 5 Fr. 4.0 [place] catheter. LV to AO pullback pressures were then recorded. CORONARY ANGIOGRAPHY DOMINANCE: Right Dominant LEFT HEART ASSESSMENT Left Ventricular Ejection Fraction: Not assessed Aortic Valve Mean Gradient: [id number] LEFT MAIN: Angiographically normal LEFT ANTERIOR DESCENDING ARTERY: Mild luminal irregularities CIRCUMFLEX ARTERY: PROX CIRC: 95 % Stenosis RIGHT CORONARY ARTERY: MID RCA: diffuse: eccentric: 25 - 50 % Stenosis DISTAL RCA: eccentric: 50 % Stenosis COMPLICATIONS PROCEDURE MEDICATIONS Versed 1 mg IV Fentanyl 50 mcg IV Versed 1 mg IV Fentanyl 50 mcg IV Oxygen: 2 L/min via nasal cannula Brilinta 180 mg PO @ 05/07/2022 08:24:28 Heparin given IA 05/07/2022 08:13:36 Heparin 6000 unit(s) IV 05/07/2022 08:42:15 Verapamil 2.5mg, Ntg 100mcgs, 3000 units of Heparin given IA 05/07/2022 08:13:36 SUMMARY OF HEMODYNAMIC DATA Time AIR REST ECG 07:43:25 AO 97/40 (59) SA 08:14:46 LV 110/-4, 11 08:22:15 LV 111/-2, 11 08:22:24 LVp 120/5, 14 08:22:44 AOp 111/43 (70) 08:22:52 Valve Area (c P-P/ms Time AIR REST Aortic 0.00 9.9 mn/348 ms 9.0 pk/348 ms 08:22:44 Signed By Kwan Umanzor MD On 05/07/2022 08:53:56 Kwan Umanzor MD
--- NOTE | 2022-05-07 09:23 | CL.I_ITS ---
Patient Name: VENUS RITTER Study Date: 05/07/2022 Performing: Vanesa Dietrich MD Ht: 62 inches 157.48 cm : 1945 Wt: 146.17 lbs 66.3 kg Age: 77 Gender: female BSA: 1.67 PROCEDURE(S) PERFORMED IC12-([id number])GWYN W/WO PTCA, SINGLE CORONARY ARTERY CLINICAL PROFILE AND CO-MORBIDITIES Indications: Worsening Angina, Valvular Disease Heart Failure: None Stress/Imaging Stress/Image Study Performed: No Angina Classification Anginal Classification w/in 2 Weeks: CCS III CAD Presentations: Unstable angina. CONCLUSIONS Successful GWYN Prox LCX using [place] 3.0x22 mm, post-dilated using 3.25 mm balloon RECOMMENDATIONS ASA Indefinitley Plavix for at least 12 months Recommend stress test as OP to evaluate for ischemia in LAD territory DESCRIPTION OF PROCEDURE The patient arrived to the procedure lab. The risks and benefits of the procedure as well as a full description of our services here and current unavailability of surgical backup were fully explained to the patient and/or their significant other prior to the catheterization. The Timeout was completed, verifying the correct patient and procedure. The patient's procedural site was prepped and draped in the usual fashion. Local anesthetic was given subcutaneously to right radial region with Lidocaine 2% Using a modified Seldinger technique,arterial access was obtained via the right radial artery, a 6Fr sheath was inserted. Left Coronary Artery selective angiography was performed in multiple views using a 5 Fr. 4.0 [place] catheter. Right Coronary Artery selective angiography was then performed in multiple views using a 5 Fr. 4.0 [place] catheter. LV to AO pullback pressures were then recorded.The images were reviewed and options discussed. A decision was then made to proceed with an Intervention, IVUS or other adjunct procedure. xb3 Guide catheter was inserted and engaged into the LCA. runthrough Guide wire was advanced to the Circumflex. emerge 3.00 x 15 Balloon catheter was advanced across lesion in the circumflex, proximal. PTCA balloon inflated at 6 atms for 10 secs. 3.0 x 22 Drug Eluting stent was advanced across the lesion in the circumflex, proximal. Angiogram performed post stent deployment. nc emerge 3.25 x 15 Balloon catheter was inserted post stent. Angiogram performed post balloon dilatation. The arterial sheath was pulled and a TR Band was applied for hemostasis INTERVENTION INFORMATION LESION SITE: Circumflex (Proximal) Lesion Complexity: High/C, culprit lesion: Yes, lesion length: 21 mm Pre Stenosis: 99 % Pre intervention AIDE flow: 3 PROCEDURE: Drug Eluting Stent with pre and post dilatation Post Stenosis: 0 % Post intervention AIDE flow: 3 Lesion Devices: Shaka Sci EMERGE MR 3.00x15 BALLOON Biotronik Orsiro [place] MR GWYN 3.0x22 Shaka Sci NC EMERGE MR 3.25x15 BALLOON COMPLICATIONS No Complications PROCEDURE MEDICATIONS Versed 1 mg IV Fentanyl 50 mcg IV Versed 1 mg IV Fentanyl 50 mcg IV Oxygen: 2 L/min via nasal cannula Brilinta 180 mg PO @ 05/07/2022 08:24:28 Heparin given IA 05/07/2022 08:13:36 Heparin 6000 unit(s) IV 05/07/2022 08:42:15 Nitro 200 mcg IC 05/07/2022 09:03:00 Verapamil 2.5mg, Ntg 100mcgs, 3000 units of Heparin given IA 05/07/2022 08:13:36 SUMMARY OF HEMODYNAMIC DATA Time AIR REST ECG 07:43:25 AO 97/40 (59) SA 08:14:46 LV 110/-4, 11 08:22:15 LV 111/-2, 11 08:22:24 LVp 120/5, 14 08:22:44 AOp 111/43 (70) 08:22:52 Valve Area (c P-P/ms Time AIR REST Aortic 0.00 9.9 mn/348 ms 9.0 pk/348 ms 08:22:44 Signed By Vanesa Dietrich MD On 05/07/2022 09:23:06 Vanesa Dietrich MD
[2022-05-07] MEDS: 0.9% Normal Saline 1,000 ML 150 ML IV (09:52)
[2022-05-07] MEDS: Pantoprazole Sodium 20 MG Tablet PO (09:52)
[2022-05-07] MEDS: FLU VACC QS2022-23(6MOS UP)/PF 60 MCG/0.5 ML SYRINGE IM (09:53)
--- NOTE | 2022-05-07 10:00 | EKG12_ITS ---
Test Reason : PCI Blood Pressure : / mmHG Vent. Rate : 065 BPM Atrial Rate : 065 BPM P-R Int : 162 ms QRS Dur : 092 ms QT Int : 442 ms P-R-T Axes : 045 000 037 degrees QTc Int : 459 ms Normal sinus rhythm Normal ECG When compared with ECG of 07-MAY-2022 04:58, MANUAL COMPARISON REQUIRED, DATA IS UNCONFIRMED Confirmed by OFELIA ROPER, KEKE ([id number]), editorial director NABILA GRIFFITHS ([id number]) on 05/12/2022 2:23:26 PM Referred By: GALLO Confirmed By:KEKE GILBERT MD
[2022-05-07] MEDS: Acetaminophen 325 MG Tablet 650 MG PO (10:36)
[2022-05-07] MEDS: Ondansetron 4 MG/2 ML Vial IV (10:39)
--- NOTE | 2022-05-07 12:39 | PCM.PN.CARD ---
Subjective Subjective The patient underwent diagnostic cardiac catheterization earlier this day. She was diagnosed with angiographically significant CAD of the LCx distribution. She underwent subsequent LCx PCI/GWYN. She has had no obvious adverse cardiovascular events. Objective Data Vital Signs: Vital Signs Temp Pulse Resp BP Pulse Ox O2 Del Method 97.5 F L 61 16 109/53 L 97 Room Air 05/07/22 11:25 05/07/22 11:25 05/07/22 11:25 05/07/22 11:25 05/07/22 11:25 05/07/22 11:25 Oxygen Delivery Method Room Air Weight: 146 lb 2.664 oz Body Mass Index (BMI) 26.7 Intake & Output: Intake and Output for Last 24 Hours 05/05/22 05/06/22 05/07/22 23:59 23:59 23:59 Intake Total 57.2 / 57.2 326.17 / 326.17 Balance 57.2 / 57.2 326.17 / 326.17 Lab / Micro Data Result Diagrams: 05/07/22 03:18 05/07/22 03:18 Labs: Laboratory Results - last 24 hr 05/06/22 14:37: Troponin I High Sens 17 05/06/22 18:30: APTT 121.7 H* 05/07/22 03:18: WBC 5.6, RBC 4.01 L, Hgb 11.9 L, Hct 35.4 L, MCV 88.3, MCH 29.7, MCHC 33.6, RDW Std Deviation 42.6, RDW Coeff of Ana 13.2, Plt Count 158, MPV 11.2, Immature Gran % (Auto) 0.200, Neut % (Auto) 50.6, Lymph % (Auto) 36.2, [place] % (Auto) 9.6, Eos % (Auto) 2.7, Baso % (Auto) 0.7, Absolute Neuts (auto) 2.9, Absolute Lymphs (auto) 2.04, Nucleated RBC % 0 05/07/22 03:18: Sodium 140, Potassium 3.8, Chloride 110 H, Carbon Dioxide 24.0, Anion Gap 6, BUN 17, Creatinine 1.01, Estim Creat Clear Calc 36.31, Est GFR (MDRD) Af Amer 68, Est GFR (MDRD) Non-Af 56 L, BUN/Creatinine Ratio 16.8, Glucose 108 H, Calcium 8.8, Magnesium 2.1, Total Bilirubin 1.20 H, AST 26, ALT 28, Alkaline Phosphatase 63, Total Protein 6.7, Albumin 3.3, Globulin 3.4, Albumin/Globulin Ratio 1.0, Triglycerides 86, Cholesterol 121, LDL Cholesterol 49, VLDL Cholesterol 17, HDL Cholesterol 55, TSH 2.88 05/07/22 03:18: Hemoglobin A1c 6.2 H 05/07/22 03:18: APTT 56.7 H Cardiology Labs/Tests 05/06/22 18:30: APTT 121.7 H* 05/07/22 03:18: WBC 5.6, RBC 4.01 L, Hgb 11.9 L, Hct 35.4 L, MCV 88.3, MCH 29.7, MCHC 33.6, Plt Count 158, MPV 11.2, Immature Gran % (Auto) 0.200, Neut % (Auto) 50.6, Lymph % (Auto) 36.2, [place] % (Auto) 9.6, Eos % (Auto) 2.7, Baso % (Auto) 0.7, Absolute Neuts (auto) 2.9, Nucleated RBC % 0 05/07/22 03:18: Sodium 140, Potassium 3.8, Chloride 110 H, Carbon Dioxide 24.0, Anion Gap 6, BUN 17, Creatinine 1.01, Est GFR (MDRD) Af Amer 68, Est GFR (MDRD) Non-Af 56 L, BUN/Creatinine Ratio 16.8, Glucose 108 H, Calcium 8.8, Magnesium 2.1, Total Bilirubin 1.20 H, Triglycerides 86, Cholesterol 121, LDL Cholesterol 49, VLDL Cholesterol 17, HDL Cholesterol 55 05/07/22 03:18: Hemoglobin A1c 6.2 H 05/07/22 03:18: APTT 56.7 H Rhythm: Sinus rhythm EKG: Sinus rhythm; no acute ECG change Cardiac Cath: CONCLUSIONS [place] Multivessel CAD RECOMMENDATIONS Risk factor modification Medical therapy Referred for immediate PCI DESCRIPTION OF? PROCEDURE The patient arrived to the procedure lab. The risks and benefits of the procedure as well as a full description of our services here and current unavailability of surgical backup were fully explained to the patient and/or their significant other prior to the catheterization. The Timeout was completed, verifying the correct patient and procedure. The patient's procedural site was prepped and draped in the usual fashion. Local anesthetic was given subcutaneously to right radial region with Lidocaine 2%. Using a modified Seldinger technique, arterial access was obtained via the right radial artery, a 6Fr sheath was inserted.? Left Coronary Artery selective angiography was performed in multiple views using a 5 Fr. 4.0 [place] catheter. Right Coronary Artery selective angiography was then performed in multiple views using a 5 Fr. 4.0 [place] catheter. LV to AO pullback pressures were then recorded. CORONARY ANGIOGRAPHY DOMINANCE:? Right Dominant LEFT HEART ASSESSMENT Left Ventricular Ejection Fraction: Not assessed LEFT MAIN: Angiographically normal LEFT ANTERIOR DESCENDING ARTERY: Mild luminal irregularities CIRCUMFLEX ARTERY: PROX CIRC: 95 % Stenosis RIGHT CORONARY ARTERY: MID RCA: diffuse: eccentric: 25 - 50 % Stenosis DISTAL RCA: eccentric: 50 % Stenosis Radiography Diagnostic Testing: Radiology Impression Echocardiogram 05/06/22 11:21 Interpretation Summary The study was technically difficult. Contrast injection was performed. Left ventricular systolic function is normal. The estimated ejection fraction is 65 %. Mild focal mitral valve calcification of the anterior leaflet. Mild (1+) mitral valve insufficiency. Mild to moderate (1-2+) tricuspid valve insufficiency. Mild to moderate aortic stenosis. Mild (1+) aortic valve insufficiency. Right ventricular systolic pressure estimated to be 35 mmHg. No evidence for diastolic dysfunction. Ordering Physician: Aminah Louis Performed By: Adriel Cota RCS Physical Exam Const alert, oriented x3, no apparent distress and healthy appearing Orientation / Consciousness: awake HEENT normocephalic, head/scalp atraumatic and hearing grossly normal bilaterally Eyes PERRL and conjunctivae normal Neck full ROM, no lymphadenopathy, supple, no JVD and no carotid bruits Carotids: normal carotid upstroke Chest inspection of chest normal Resp normal respiratory effort and clear to auscultation bilaterally Cardio regular rate, regular rhythm, S1 normal heart sound and S2 normal heart sound Heart Sounds: murmur systolic III/ harsh left sternal border, LVOT and sternal notch GI normal to inspection, nondistended, normoactive bowel sounds Extremity no pedal edema Skin no rashes or lesions noted Psych mental status grossly normal Assessment & Plan Assessment/Plan (1) CAD (coronary artery disease): PLAN: The patient has been diagnosed with underlying CAD. This does appear to explain her ongoing symptoms of unstable angina/accelerating angina pectoris. She will continue medical management as deemed appropriate. She is status post PCI of the LCx distribution. She will need continued future outpatient follow-up and outpatient cardiac rehabilitation. (2) S/P PTCA (percutaneous transluminal coronary angioplasty): PLAN: The patient underwent diagnostic cardiac catheterization and was found to have angiographically significant CAD of the LCx distribution. She underwent PTCA/GWYN. She will continue medical therapy and follow-up. (3) Aortic valve stenosis, acquired: PLAN: The patient's transthoracic echocardiogram as noted. She does appear to have an element of underlying aortic valve stenosis. She will continue to be followed by history, exam, and future echocardiographic studies. (4) HLD (hyperlipidemia): PLAN: The patient does have a history of hyperlipidemia. She should continue risk factor modification medical therapy as deemed appropriate. (5) HTN (hypertension): PLAN: The patient has a history of hypertension. Her blood pressures will need to be followed as she states her blood pressures at home are noted to increase after she has these events. She may need adjustment of her medications over time (6) Diabetes mellitus: PLAN: She will continue evaluation care per internal medicine. (7) GERD (gastroesophageal reflux disease): PLAN: She states she does have a history of GERD. She notes these symptoms are different from her current symptoms. She will continue her GERD evaluation per internal medicine as deemed appropriate Addt'l Comments The above was discussed and reviewed with the patient, her spouse, her other family members present, and Dr. Bansal. This note was generated using a voice recognition system and there may be incorrect words, spelling or punctuation that were not noted when reviewing the office note prior to saving. Procedure Criteria Type of Procedure Procedure Type: Elective Elective Risks - COVID COVID Risk Discussion: The surgeon/proceduralist and patient have discussed in detail the risk of exposure to and/or potential harm posed by the COVID-19 virus with having a surgery/procedure at this time versus the risk of delaying the surgery/procedure. It is not possible to know either the risk of delaying the surgery or procedure or chance of getting an infection with perfect accuracy, but a joint decision was made between the patient and the surgeon/proceduralist to proceed at this time with the scheduled surgery/procedure as indicated on the consent form.
--- NOTE | 2022-05-07 12:55 | CASEMGMT ---
ZECHARIAH CANALES assessment: Face to Face with patient for initial transition planning/care coordination assessment. ZECHARIAH CANALES introduced self and role at [facility], pt voices understanding and consents to assessment.? Pt is lying in bed in no distress on room air. Pt is A/Ox4 and answers all questions appropriately. Pt has family at bedside during assessment. Care providers, pharmacy,?and demographics verified. ? Presentation: Bilat arm tightness, chest pain, back/shoulder pain Admitting dx: CP, Unstable angina PCP: Stefania Specialists: Noé cardio Preferred Pharmacy: [facility] Insurance: [facility] A/B, MMO Prescription Benefit:?[employer] Living Will/HPOA: Pt has LW/HPOA and is aware that they are not on file at [facility]. Pt states her , Alberto Schneider, is HPOA. LNOK: Alberto Schneider, /HPOA Living Arrangements: Pt lives with in 2 story home and states no concerns at home. Pt is independent with ADL's. Transportation: Pt drives self and states no transportation concerns. DME/HHC: Pt states no current DME or need for any DME. Pt states no hx HHC or SNF. Pt states no concerns with going home at time of discharge. Pt is retired. Pt does not smoke cigarettes or drink ETOH. Pt states no further concerns/needs. CM to follow further discharge planning/needs. Advised pt to ask for CM if any further questions/concerns/needs arise, voices understanding. Pt Goal: Home ? Plan[place] ZECHARIAH CANALES
--- NOTE | 2022-05-07 13:18 | NURSING ---
Patient post cardiac cath, will check back later.
--- NOTE | 2022-05-07 14:22 | CRPHASE1 ---
Patient Communication PHII Cardiac Rehab Discussed with Patient:: Yes Guide to Cardiac Rehab Given to Patient:: Yes Cardiac Rehab Facility Choice List Given to Patient:: Yes Choice Program [facility] CR PHII:: Communication Given to CR Choice Program Other:: Communication Given to CR [employer]ic:: Vanesa Dietrich Phase II Cardiac Rehab:: Yes Sessions:: 36 sessions - 3 days/wk, 12 weeks Cardiac Rehabilitation Info Cardiac Rehabilitation Program Information: Cardiac Rehabilitation is important for patients like you who are recovering from a heart problem. Cardiac rehabilitation programs are recognized as integral to the continued care of the patient with coronary heart disease. The cardiac rehabilitation program is designed to optimize a patient's physical, psychological, and social functioning. Health residential care officer work in cardiac rehabilitation programs and assist you with getting the treatments you need to get stronger and healthier - like exercise, healthy eating habits, and medications. Cardiac rehabilitation has been show to help people with heart problems live longer and have better life enjoyment than people who do not go to cardiac rehabilitation. Please contact the Cardiac Rehabilitation Program at [facility] at in two weeks if you have not heard from them.
--- NOTE | 2022-05-07 14:23 | CRPH1.INSTRU ---
General Education CAD and cardiac anatomy and function:: Patient communicates acknowledgment Explanation of diagnoses and procedures:: Patient communicates acknowledgment Sign/Symptoms of AK:: Patient communicates acknowledgment Antiplatelet therapy: Patient communicates acknowledgment Smoking Patient Nicotine/Smoking Risk Factors Are:: Never smoked Dyslipidemia Patient Dyslipidemia Risk Factors Are:: Total Cholesterol, Triglycerides, LDL Recommendations Include:: Lipid profile provided, Reviewed NCEP/ATP guidelines, Therapeutic Lifestyle Change dietary guidelines Dyslipidemia Response Code:: Patient communicates acknowledgment Overweight/Obesity Patient Overweight/Obesity Risk Factors Are:: BMI Normal [24-29 & > 65 years old] Recommendations Include:: Weight loss of 5-10%, Reduced calorie diet, Exercise 5-7 times/week Overweight/Obesity:: Patient communicates acknowledgment Hypertension Recommendations Include:: Maintain BP <130/85, DASH dietary guidelines, Decrease/maintain normal body weight, Moderation of ETOH Hypertension:: Patient communicates acknowledgment Metabolic Syndrome Patient Metabolic Syndrome Risk Factors Are [3 of 5]:: Fasting blood sugar > 100 mg/dL, Waist circumference > 35 [female] or 40 [male], Hypertension, Low HDL <40 [male] or < 50 [female] Recommendations Include:: Reinforce compliance to risk factor modifications, Encouraged follow-up with Primary Care Physician Metabolic Syndrome Response Code:: Patient communicates acknowledgment - borderline diabetes Sedentary Patient Sedentary Risk Factors Are:: Lack of regular exercise Recommendations Include:: Aerobic exercise 5-7 times/week for 20-30 minutes continuously, Benefits of regular exercise, Discussed home walking program, Monitored Outpatient Cardiac Rehab Sedentary Response Code:: Patient communicates acknowledgment Stress Recommendations Include:: Identification of stressors, and assessment of coping skills, Stress management techniques Stress Response Code:: Patient communicates acknowledgment
[2022-05-07] MEDS: Clopidogrel Bisulfate 300 MG Tablet PO (16:40)
[2022-05-07] MEDS: Atorvastatin Calcium 40 MG Tablet PO (21:00)
[2022-05-07] MEDS: amLODIPine 5 MG Tablet PO (21:00)
[2022-05-08] VITALS (7 sets, daily range): BP systolic 138–152; BP diastolic 64–65; PULSE 72–78; RESP 18–20; TEMP 36.8–37.3; O2SAT 94–96
[2022-05-08 05:59] LABS: Absolute Lymphocyte Count 0.94 X10^3/uL (0.83-4.51); Absolute Neutrophil Count 3.1 X10^3/uL (2.0-7.7); Basophil# 0.03 X10^3/uL; Basophil% 0.6 % (0-1); Eosinophil# 0.12 X10^3/uL; Eosinophils% 2.6 % (0-5); Hematocrit 34.3 % (37-47); Hemoglobin 11.2 g/dL (12.0-15.0); Lymphocyte # 0.94 X10^3/ul (0.83-4.51); Lymphocyte % 20.1 % (19-41); Mean Corp Hgb Conc 32.7 g/dL (32-36); Mean Corpuscular Volume 88.9 fL (81-99); Mean Platelet Vol. 11.3 fl (6.2-12.0); Monocyte# 0.46 X10^3/uL; Monocyte% 9.9 % (0-10); NRBC Flagged by Analyzer 0 % (0-5); Neutrophil # 3.12 X10^3/uL (2.7-7.7); Neutrophil % 66.8 % (47-70); Platelet Count 157 K/mm3 (150-450); RBC Distribution Width CV 13.4 % (11.6-14.6); RBC Distribution Width SD 43.6 fl (35.1-43.9); Red Blood Count 3.86 M/mm3 (4.2-5.4); White Blood Count 4.7 K/mm3 (4.4-11.0)
[2022-05-08 06:44] LABS: AST(SGOT) 25 U/L (15-37); Alanine Aminotransfer ALT/SGPT 25 U/L (13-56); Albumin, Serum 3.1 g/dL (3.2-5.0); Alkaline Phosphatase 65 U/L (45-117); Anion Gap 8 (5-15); BUN 13 mg/dL (7-18); BUN/Creat Ratio 14.8 RATIO (10-20); Calcium,Total 8.6 mg/dL (8.5-10.1); Chloride 108 mmol/L (98-107); Creatinine, Serum 0.88 mg/dL (0.55-1.02); EST Glomerular Filtration Rate 66 mL/min (>60); Est Glom Filt Rate - Afr Amer 80 mL/min (>60); Estimated Creatinine Clearance 41.67 ml/min; Globulin 3.1 g/dL (2.2-4.2); Glucose 93 mg/dL (74-106); Potassium 3.6 mmol/L (3.5-5.1); Protein, Total 6.2 g/dL (6.4-8.2); Sodium Level 140 mmol/L (136-145)
[2022-05-08] MEDS: Pantoprazole Sodium 20 MG Tablet PO (07:44)
[2022-05-08] MEDS: Losartan Potassium 100 MG Tablet PO (07:44)
[2022-05-08] MEDS: Aspirin 81 MG TAB.CHEW PO (07:44)
[2022-05-08] MEDS: Clopidogrel Bisulfate 75 MG Tablet PO (07:44)
[2022-05-08] MEDS: Metoprolol(XL)Succ 50 MG Tablet PO (07:44)
--- NOTE | 2022-05-08 10:50 | PCM.PN.CARD ---
Subjective Subjective The patient states she feels better. She states she walked the hallways of the hospital yesterday afternoon. She states she felt good doing so. She states prior to her PCI she would not of been able to do that without stopping based upon her chest discomfort. Objective Data Vital Signs: Vital Signs Temp Pulse Resp BP Pulse Ox O2 Del Method 98.2 F 72 18 138/65 H 96 Room Air 05/08/22 09:00 05/08/22 09:00 05/08/22 09:00 05/08/22 09:00 05/08/22 09:00 05/08/22 09:00 Oxygen Delivery Method Room Air Weight: 146 lb 2.664 oz Body Mass Index (BMI) 26.7 Intake & Output: Intake and Output for Last 24 Hours 05/06/22 05/07/22 05/08/22 23:59 23:59 23:59 Intake Total 57.2 / 57.2 1686.17 / 1806.17 120 / 120 Balance 57.2 / 57.2 1686.17 / 1806.17 120 / 120 Lab / Micro Data Result Diagrams: 05/08/22 04:13 05/08/22 04:13 Labs: Laboratory Results - last 24 hr 05/08/22 04:13: WBC 4.7, RBC 3.86 L, Hgb 11.2 L, Hct 34.3 L, MCV 88.9, MCH 29.0, MCHC 32.7, RDW Std Deviation 43.6, RDW Coeff of Ana 13.4, Plt Count 157, MPV 11.3, Immature Gran % (Auto) 0.000, Neut % (Auto) 66.8, Lymph % (Auto) 20.1, [place] % (Auto) 9.9, Eos % (Auto) 2.6, Baso % (Auto) 0.6, Absolute Neuts (auto) 3.1, Absolute Lymphs (auto) 0.94, Nucleated RBC % 0 05/08/22 04:13: Sodium 140, Potassium 3.6, Chloride 108 H, Carbon Dioxide 24.0, Anion Gap 8, BUN 13, Creatinine 0.88, Estim Creat Clear Calc 41.67, Est GFR (MDRD) Af Amer 80, Est GFR (MDRD) Non-Af 66, BUN/Creatinine Ratio 14.8, Glucose 93, Calcium 8.6, Total Bilirubin 1.50 H, AST 25, ALT 25, Alkaline Phosphatase 65, Total Protein 6.2 L, Albumin 3.1 L, Globulin 3.1, Albumin/Globulin Ratio 1.0 Cardiology Labs/Tests 05/08/22 04:13: WBC 4.7, RBC 3.86 L, Hgb 11.2 L, Hct 34.3 L, MCV 88.9, MCH 29.0, MCHC 32.7, Plt Count 157, MPV 11.3, Immature Gran % (Auto) 0.000, Neut % (Auto) 66.8, Lymph % (Auto) 20.1, [place] % (Auto) 9.9, Eos % (Auto) 2.6, Baso % (Auto) 0.6, Absolute Neuts (auto) 3.1, Nucleated RBC % 0 05/08/22 04:13: Sodium 140, Potassium 3.6, Chloride 108 H, Carbon Dioxide 24.0, Anion Gap 8, BUN 13, Creatinine 0.88, Est GFR (MDRD) Af Amer 80, Est GFR (MDRD) Non-Af 66, BUN/Creatinine Ratio 14.8, Glucose 93, Calcium 8.6, Total Bilirubin 1.50 H Rhythm: EKG: ECHO: Stress Test: Cardiac Cath: PCI: CT Surgery: Holter monitor: EPS: PPM: CXR: Chest CT Scan: Physical Exam Const alert, oriented x3, no apparent distress and healthy appearing Orientation / Consciousness: awake HEENT normocephalic, head/scalp atraumatic and hearing grossly normal bilaterally Eyes PERRL and conjunctivae normal Neck full ROM, no lymphadenopathy, supple, no JVD and no carotid bruits Carotids: normal carotid upstroke Chest inspection of chest normal Resp normal respiratory effort and clear to auscultation bilaterally Cardio regular rate, regular rhythm, S1 normal heart sound and S2 normal heart sound Heart Sounds: murmur systolic III/ harsh left sternal border, LVOT and sternal notch GI normal to inspection, nondistended, normoactive bowel sounds Extremity no pedal edema Skin no rashes or lesions noted Psych mental status grossly normal Assessment & Plan Assessment/Plan (1) CAD (coronary artery disease): PLAN: The patient has been diagnosed with underlying CAD. This does appear to explain her ongoing symptoms of unstable angina/accelerating angina pectoris. She will continue medical management as deemed appropriate. She is status post PCI of the LCx distribution. She will need continued future outpatient follow-up and outpatient cardiac rehabilitation. (2) S/P PTCA (percutaneous transluminal coronary angioplasty): PLAN: The patient underwent diagnostic cardiac catheterization and was found to have angiographically significant CAD of the LCx distribution. She underwent PTCA/GWYN. She will continue medical therapy and follow-up. (3) Aortic valve stenosis, acquired: PLAN: The patient's transthoracic echocardiogram as noted. She does appear to have an element of underlying aortic valve stenosis. She will continue to be followed by history, exam, and future echocardiographic studies. (4) HLD (hyperlipidemia): PLAN: The patient does have a history of hyperlipidemia. She should continue risk factor modification medical therapy as deemed appropriate. (5) HTN (hypertension): PLAN: The patient has a history of hypertension. Her blood pressures will need to be followed as she states her blood pressures at home are noted to increase after she has these events. She may need adjustment of her medications over time (6) Diabetes mellitus: PLAN: She will continue evaluation care per internal medicine. (7) GERD (gastroesophageal reflux disease): PLAN: She states she does have a history of GERD. She notes these symptoms are different from her current symptoms. She will continue her GERD evaluation per internal medicine as deemed appropriate Addt'l Comments Overall, at the present time, the patient appears symptomatically improved and hemodynamically stable. She will continue her medical therapy. She will have future outpatient cardiovascular follow-up/evaluation as deemed appropriate. She will also be enrolled in the future for outpatient cardiovascular rehabilitation therapy. This note was generated using a voice recognition system and there may be incorrect words, spelling or punctuation that were not noted when reviewing the office note prior to saving. Procedure Criteria Type of Procedure Procedure Type: Elective Elective Risks - COVID COVID Risk Discussion: The surgeon/proceduralist and patient have discussed in detail the risk of exposure to and/or potential harm posed by the COVID-19 virus with having a surgery/procedure at this time versus the risk of delaying the surgery/procedure. It is not possible to know either the risk of delaying the surgery or procedure or chance of getting an infection with perfect accuracy, but a joint decision was made between the patient and the surgeon/proceduralist to proceed at this time with the scheduled surgery/procedure as indicated on the consent form.
--- NOTE | 2022-05-08 11:27 | PCM.DC ---
Discharge Instructions Diet Discharge Diet: Low fat / Low cholesterol Activity Discharge Activity: Return to Normal Activity Follow Up Care Test Results: Test results from this visit will be discussed in further detail at your follow-up appointment, if applicable. Discharge Plan Admission Admit Date/Time: 05/07/22 10:01 Primary Reason for Your Visit: Chest pain Attending Provider: Aminah Louis Primary Care Provider: Feliciano Aguiar Consulting Providers: Kwan Umanzor Instructions Patient Instructions: CAD Additional Instructions / Restrictions: *Please take this with you to your next doctors appointment* ?We will be very important for you to follow-up with cardiology as an outpatient, you will follow-up with Dr. Umanzor upon discharge ?You will also need to follow-up with outpatient cardiac rehab on discharge ? You will need to take aspirin, statin, clopidogrel as well your home metoprolol -Your omeprazole was discontinued as it has a potential interaction with clopidogrel (Plavix) and a new prescription for pantoprazole was sent to your pharmacy. These were sent to the preferred pharmacy on file to the [facility] in [place]. It is important that you stop taking the omeprazole, please discontinue this and begin taking the pantoprazole (Protonix) -You were on rosuvastatin (Crestor) 5 mg daily prior to admission, you have been switched to atorvastatin 40 mg and the prescription was sent to your pharmacy. It is important that you do not take these 2 together, please stop taking the rosuvastatin -Please call your primary care provider's office upon discharge to schedule a hospital follow up within 1 week. -For any concerning signs or symptoms please call 911 or proceed to the nearest emergency department Discharge Orders/Prescriptions Prescriptions: New atorvastatin 40 mg Tablet 40 mg PO QHS 30 Days Qty: 30 0RF clopidogrel 75 mg Tablet 75 mg PO DAILY 30 Days Qty: 30 0RF pantoprazole 20 mg Tablet,Delayed Release (Dr/Ec) 20 mg PO DAILY 30 Days Qty: 30 0RF Continued metoprolol succinate 100 mg tablet extended release 24 hr 50 mg PO DAILY amlodipine [Norvasc] 5 mg tablet 5 mg PO QHS aspirin [Aspirin Childrens] 81 mg tablet,chewable 81 mg PO DAILY Label Comments: 1 tablet by mouth once a day losartan 100 mg tablet 100 mg PO DAILY Discontinued rosuvastatin 5 mg tablet 5 mg PO DAILY omeprazole 20 mg tablet,delayed release (DR/EC) 20 mg PO DAILY Label Comments: 1 tablet by mouth once a day Referrals / Follow Up: Feliciano Aguiar MD [Primary Care Provider] - Within 1 Week Kwan Umanzor MD [Med Staff - Active Staff] - Within 1 Month (You will need a routine hospital follow up appointment. ) Disposition Disposition (needs filled in before D/C Order can be placed): Home, Self Care
--- NOTE | 2022-05-08 11:39 | DS.PCM_ITS ---
Providers Date of Admission: 05/07/22 Date of Discharge: 05/08/22 Primary Care Physician: Dr. Feliciano Aguiar MD Consultations 05/06/22 11:21 Consult: Cardiology Routine Consulting Provider: Kwan Umanzor Reason for Consult: Chest Pain EMERGENT Consult: No MD Notified: Yes Date Notified: 05/06/22 Time Notified: 11:24 Method of Notification: Text Reason For Visit: CP Diagnosis Discharge Diagnosis (1) Unstable angina: Status: Acute Code(s): I20.0 - Unstable angina (2) CAD (coronary artery disease): Status: Acute Code(s): I25.10 - Atherosclerotic heart disease of [place] coronary artery without angina pectoris Qualifiers: Associated angina: with unstable angina (3) S/P PTCA (percutaneous transluminal coronary angioplasty): Status: Acute Code(s): Z98.61 - Coronary angioplasty status (4) Aortic valve stenosis, acquired: Status: Acute Code(s): I35.0 - Nonrheumatic aortic (valve) stenosis (5) HLD (hyperlipidemia): Status: Acute Code(s): E78.5 - Hyperlipidemia, unspecified (6) HTN (hypertension): Status: Chronic Code(s): I10 - Essential (primary) hypertension (7) Diabetes mellitus: Status: Acute Code(s): E11.9 - Type 2 diabetes mellitus without complications (8) GERD (gastroesophageal reflux disease): Status: Acute Code(s): K21.9 - Gastro-esophageal reflux disease without esophagitis Plan #Unstable angina #CAD #Hypertension Medications at Discharge Home Medications amlodipine 5 mg tablet (Norvasc) 5 mg PO QHS 05/06/22 aspirin 81 mg chewable tablet (Aspirin Childrens) 81 mg PO DAILY 05/06/22 losartan 100 mg tablet 100 mg PO DAILY 05/06/22 metoprolol succinate 100 mg tablet,extended release 24 hr 50 mg PO DAILY 05/06/22 atorvastatin 40 mg tablet 40 mg PO QHS 30 days #30 tabs 05/08/22 clopidogrel 75 mg tablet 75 mg PO DAILY 30 days #30 tabs 05/08/22 pantoprazole 20 mg tablet,delayed release 20 mg PO DAILY 30 days #30 tabs 05/08/22 Hospital Course Procedures Cardiac catheterization (With PTCA and GWYN to the left circumflex distribution), EKG and Transthoracic echo Summary of Care Provided Minutes Spent on Discharge: 32 Hospital Course: Ms. Schneider is a 77-year-old female with a medical history of hypertension and GERD who presented 05/06/2022 due to chest tightness that radiated to neck and arms that worsened with exertion and was relieved with rest and began limiting her daily activities. She is admitted for unstable angina and started on heparin drip aspirin statin Plavix, aspirin, and cardiology consulted. Troponins negative and EKG unremarkable but given heart score and atypical chest pain history left heart cath was performed and proximal left circumflex was shown to have 95% stenosis and underwent PTCA/GWYN. Plans for outpatient cardiac rehab and cardiology follow-up. She was monitored without return symptoms and discharged on aspirin, statin, Plavix, beta-franklyn in stable condition. She was advised to discontinue her omeprazole due to potential interaction with Plavix, new prescription for pantoprazole sent to pharmacy. Ms. Schneider was seen on the day of discharge 05/08/2022 and reported no further chest pain, shortness of breath, or cough. She was doing well and stable for discharge. Discharged home in stable condition Physical Exam Const alert and oriented x3 General Appearance: cooperative and comfortable HEENT normocephalic and head/scalp atraumatic Eyes EOMs intact bilaterally Neck supple Resp normal respiratory effort and clear to auscultation bilaterally Cardio regular rate and regular rhythm Cardio Narrative: Noted systolic ejection murmur at upper sternal borders GI soft to palpation, non-tender and non-distended Extremity normal to inspection Skin no rashes or lesions noted Neuro moves all extremities Psych affect normal Weight / BMI Weight Weight: 66.3 kg Body Mass Index (BMI) 26.7 ABG / Lab / Microbiology Data Result Diagrams: 05/08/22 04:13 05/08/22 04:13 Laboratory: Laboratory Results - last 24 hr 05/08/22 04:13: WBC 4.7, RBC 3.86 L, Hgb 11.2 L, Hct 34.3 L, MCV 88.9, MCH 29.0, MCHC 32.7, RDW Std Deviation 43.6, RDW Coeff of Ana 13.4, Plt Count 157, MPV 11.3, Immature Gran % (Auto) 0.000, Neut % (Auto) 66.8, Lymph % (Auto) 20.1, Amelia % (Auto) 9.9, Eos % (Auto) 2.6, Baso % (Auto) 0.6, Absolute Neuts (auto) 3.1, Absolute Lymphs (auto) 0.94, Nucleated RBC % 0 05/08/22 04:13: Sodium 140, Potassium 3.6, Chloride 108 H, Carbon Dioxide 24.0, Anion Gap 8, BUN 13, Creatinine 0.88, Estim Creat Clear Calc 41.67, Est GFR (MDRD) Af Amer 80, Est GFR (MDRD) Non-Af 66, BUN/Creatinine Ratio 14.8, Glucose 93, Calcium 8.6, Total Bilirubin 1.50 H, AST 25, ALT 25, Alkaline Phosphatase 65, Total Protein 6.2 L, Albumin 3.1 L, Globulin 3.1, Albumin/Globulin Ratio 1.0 D/C Instructions Discharge Diet: Low fat / Low cholesterol Meaningful Use Info Meaningful Use Diagnoses (Choose all that apply): None applicable Discharge Plan Admission Admit Date/Time: 05/07/22 10:01 Primary Reason for Your Visit: Chest pain Attending Provider: Aminah Louis Primary Care Provider: Feliciano Aguiar Consulting Providers: Kwan Umanzor Instructions Patient Instructions: CAD Additional Instructions / Restrictions: *Please take this with you to your next doctors appointment* ?We will be very important for you to follow-up with cardiology as an outpatient, you will follow-up with Dr. Umanzor upon discharge ?You will also need to follow-up with outpatient cardiac rehab on discharge ? You will need to take aspirin, statin, clopidogrel as well your home metoprolol -Your omeprazole was discontinued as it has a potential interaction with clopidogrel (Plavix) and a new prescription for pantoprazole was sent to your pharmacy. These were sent to the preferred pharmacy on file to the [facility] in [place]. It is important that you stop taking the omeprazole, please discontinue this and begin taking the pantoprazole (Protonix) -You were on rosuvastatin (Crestor) 5 mg daily prior to admission, you have been switched to atorvastatin 40 mg and the prescription was sent to your pharmacy. It is important that you do not take these 2 together, please stop taking the rosuvastatin -Please call your primary care provider's office upon discharge to schedule a hospital follow up within 1 week. -For any concerning signs or symptoms please call 911 or proceed to the nearest emergency department Discharge Orders/Prescriptions Prescriptions: New atorvastatin 40 mg Tablet 40 mg PO QHS 30 Days Qty: 30 0RF clopidogrel 75 mg Tablet 75 mg PO DAILY 30 Days Qty: 30 0RF pantoprazole 20 mg Tablet,Delayed Release (Dr/Ec) 20 mg PO DAILY 30 Days Qty: 30 0RF Continued metoprolol succinate 100 mg tablet extended release 24 hr 50 mg PO DAILY amlodipine [Norvasc] 5 mg tablet 5 mg PO QHS aspirin [Aspirin Childrens] 81 mg tablet,chewable 81 mg PO DAILY Label Comments: 1 tablet by mouth once a day losartan 100 mg tablet 100 mg PO DAILY Discontinued rosuvastatin 5 mg tablet 5 mg PO DAILY omeprazole 20 mg tablet,delayed release (DR/EC) 20 mg PO DAILY Label Comments: 1 tablet by mouth once a day Referrals / Follow Up: Feliciano Aguiar MD [Primary Care Provider] - Within 1 Week Kwan Umanzor MD [Med Staff - Active Staff] - Within 1 Month (You will need a routine hospital follow up appointment. ) Disposition Disposition (needs filled in before D/C Order can be placed): Home, Self Care Charges/Coding Visit Charges Inpatient E&M: 93351 Disch Hosp
== END 2022-05-08 12:21 | disposition home or self-care (01) | DRG 247 ==
LOC: ED 10:06 → PCU 11:01
PROVIDERS: Admitting Provider Internal Medicine; Emergency Provider Emergency Medicine; PCP Family Medicine; Visit Provider Internal Medicine
DX: I25.110 Atherosclerotic heart disease of native coronary artery with unstable angina pectoris (principal); E11.9 Type 2 diabetes mellitus without complications; K21.9 Gastro-esophageal reflux disease without esophagitis; E78.00 Pure hypercholesterolemia, unspecified; I08.3 Combined rheumatic disorders of mitral, aortic and tricuspid valves; I10 Essential (primary) hypertension; E78.5 Hyperlipidemia, unspecified; R01.1 Cardiac murmur, unspecified; Z98.61 Coronary angioplasty status; Z23 Encounter for immunization
CPT/HCPCS: 36415; 71045; 80048; 80053; 80061; 83036; 83735; 84443; 84484; 85025; 85610; 85730; 92928; 93005; 93306; 93454; 99152; 99153; 99284; C1874; G0008; J7030; Q9957; Q9967; 90686; A4216; C1725; C1769; C1887; C1894; C8929; C9600; J2405

== ENCOUNTER → 2022-05-20 | Outpatient (CLI) | payer MEDICARE, OTHER, SELFPAY ==
--- NOTE | 2022-05-20 12:02 | STRESSREP_ITS ---
Stress Test Report Date: 05-20-2022 Procedure: Exercise tolerance test/imaging study Indications: Fatigue, CAD, status post PCI Consent: Per the patient Procedure: The patient exercised on a Jc protocol for 6 minutes and 6 seconds completing Stage II and 6 seconds of Stage III achieving a peak heart rate of 123 bpm (86% predicted maximal heart rate) with resting blood pressure of 112/58 mmHg and a peak blood pressure 142/mmHg and a peak MET capacity of 7 METs. The baseline ECG demonstrated normal sinus rhythm. The peak exercise ECG demonstrated somatic/motion artifact with no obvious ECG changes. There were no cardiac dysrhythmias pretest, during exercise, or recovery. The functional capacity was considered good. There was no complaint of chest discomfort during exercise or recovery. The examination was discontinued secondary to dyspnea; leg discomfort; fatigue. Impression: 1. Technically adequate (percent predicted maximal heart rate greater than 85%) exercise tolerance test 2. Peak exercise ECG with somatic/motion artifact with no obvious ECG changes 3. There were no cardiac dysrhythmias pretest, during exercise, or recovery 4. Nuclear images pending Myocardial perfusion imaging study: Technique: The patient was injected with 11.1 mCi of technetium 99m Cardiolite and subsequently rest SPECT Cardiolite nuclear imaging was obtained in the horizontal long, vertical long, and short axis views. The patient exercised on a Jc protocol for 6 minutes and 6 seconds completing Stage II and 6 seconds of Stage III achieving a peak heart rate of 123 bpm (86% predicted maximal heart rate) with resting blood pressure of 112/58 mmHg and a peak blood pressure 142/mmHg and a peak MET capacity of 7 METs. The patient was injected with 34.1 mCi of technetium 99m Cardiolite and subsequently stress SPECT Cardiolite nuclear imaging was obtained in the horizontal long, vertical long, and short axis views. A gated Cardiolite study at peak stress was obtained. Interpretation: Rest and stress SPECT Cardiolite nuclear imaging status post realignment, normalization, and attenuation correction, demonstrates the appearance of relative uniform tracer uptake and myocardial perfusion appearing within normal limits. There is end systolic thickening and brightening. The gated Cardiolite study demonstrates myocardial thickening and inward wall motion. The reported LVEF is 91%. Impression: 1. Rest and stress SPECT Cardiolite nuclear imaging demonstrate relative uniform tracer uptake and myocardial perfusion appearing within normal limits. 2. The gated Cardiolite study reports an LVEF of 91%. This note was generated with [employer] software. It may contain incorrect words, spelling, and punctuation that were not noted in checking the note before signing.
== END | disposition home or self-care (01) ==
LOC: CVS 07:01
PROVIDERS: PCP Family Medicine; Referring Provider Internal Medicine Cardiovascular Disease; Visit Provider Internal Medicine Cardiovascular Disease
DX: I25.10 Atherosclerotic heart disease of native coronary artery without angina pectoris (principal); Z95.5 Presence of coronary angioplasty implant and graft
CPT/HCPCS: 78452; 93017; A9500; A4216

== ENCOUNTER → 2022-05-21 | Outpatient (CLI) | payer MEDICARE, OTHER, SELFPAY ==
--- NOTE | 2022-05-21 13:49 | CR.HP_ITS ---
CR - History & Physical - General Arrival date:: 05/21/22 Arrival time:: 13:49 Date of Referral:: 05/09/22 Date of CR Evaluation:: 05/21/22 Referring Physician: Dr. Umanzor Primary Diagnosis: PCI with coronary stenting - History of Present Cardiac Event Onset Date: Enter Onset Date of cardiac illnesses in Comment field below PTCA or coronary stenting:: Yes - left circumflex 05/07/22 - Sleep Disorder Evaluation Hx of Sleep Apnea: No Do you snore loudly (louder than talking or can be heard through closed doors)?: No Do you often feel tired/ fatigued/ sleepy during daytime?: No Has anyone observed you stop breathing during sleep?: No History of Hypertension (for STOP score): Yes STOP Results: Negative - Medications Home Medications: Ambulatory Orders Medication Instructions Recorded amlodipine 5 mg tablet (Norvasc) 5 mg PO QHS 05/06/22 aspirin 81 mg chewable tablet 81 mg PO DAILY 05/06/22 (Aspirin Childrens) losartan 100 mg tablet 100 mg PO DAILY 05/06/22 metoprolol succinate 100 mg 50 mg PO DAILY 05/06/22 tablet,extended release 24 hr atorvastatin 40 mg tablet 40 mg PO QHS 30 days #30 tabs 05/08/22 clopidogrel 75 mg tablet 75 mg PO DAILY 30 days #30 tabs 05/08/22 pantoprazole 20 mg tablet,delayed 20 mg PO DAILY 30 days #30 tabs 05/08/22 release - Allergies Allergies/Adverse Reactions: Allergies No Known Allergies Allergy (Verified 05/06/22 08:10) Advanced Directives - Advanced Directives Power of Agricultural Education Instructor: Yes Living Will: Yes Advance Directives Information Provided: Yes Advance Directives on File: No DNR Order?:: No Past Medical History - Covid-19 Screening 65 years or older:: Yes Has a serious heart condition:: Yes - Past Medical Illness Medical History: Past Medical History (Last Updated 05/08/22 @ 08:39 by Stacey Vee) Atherosclerotic heart disease of [place] coronary artery without angina pectoris I25.10 Borderline diabetes R73.03 CAD (coronary artery disease) I25.10 Cardiac murmur R01.1 GERD (gastroesophageal reflux disease) K21.9 High cholesterol E78.00 HLD (hyperlipidemia) E78.5 Hypertension I10 Presence of stent in coronary artery Onset Date: ~10/19/22 Z95.5 Successful GWYN Prox LCX using Orsirio 3.0x22 mm, post-dilated using 3.[address] Dietrich 05/07/22 - Past Surgical History Surgical History: Past Surgical History (Last Updated 05/08/22 @ 08:39 by Stacey Vee) Presence of coronary angioplasty implant and graft Onset Date: ~05/07/22 Z95.5 Successful GWYN Prox LCX using Orsirio 3.0x22 mm, post-dilated using 3.[address] Dietrich 05/07/22 S/P PTCA (percutaneous transluminal coronary angioplasty) Z98.61 Social History - Smoking History Smoking Status: Never smoker - Alcohol Use Alcohol Usage: No - Substance Abuse Hx Substance Use: No - Occupation Occupation (List type of work in comments):: Retired - Hobbies, Recreation, Social Activities Hobbies: Reading, Other - computer games Recreational Activities: I am able to engage in all my recreational activities Social Environment - Status Marital Status: - Current Living Arrangements Living Environment:: Spouse - Children How many children do you have?: 5 Do any of your children live nearby?: Yes - Safety Do you feel safe in your surroundings?: Yes - Assistance Do you need any assistance at home?: no Review of Systems - Review of Systems Hints: Right click = Denies ([place]ash). Left click = Reports ([place]) Review of Present Symptoms: Reports: Shortness of Breath with Exertion, Dizziness/Lightheadedness, Fatigue, Appetite - Normal, Sleep - Normal. Denies: Shortness of Breath at Rest, PVD, Operative Discomfort, Angina, Wound Healing, Heart Arrhythmia/Irregularities, Appetite - Special Diet, Sexual Changes - Pain Is Patient Pain Free?: Yes Risk Factor Assessment - Vital Signs Pulse Ox: 97 Blood Pressure: 122/50 - Pulse Pulse Rate: 70 Pulse Rhythm: Regular - Diabetes Nutrition Referral for Diabetes: No - Obesity Height: 5 ft 2 in Weight:: 76.204 kg Weight in Pounds: 168.0 lbs Body Mass Index (BMI): 30.7 Nutritional Referral for Obesity: No - Physical Inactivity Physical Inactivity: Recreational activity - Risk Stratification Risk Guidelines: Moderate Risk: Risk Factor for Smoking, Risk Factor for Dyslipidemia, Risk Factor for Diabetes, Risk Factor for Obesity, Risk Factor for Hypertension, Risk Factor for Sedentary Lifestyle, Risk Factor for Depression Motivation - Motivation to Participate On a scale of 1 to 10, how prepared are you to commit to attending program?: 8 What do you see as barriers to successfully being able to complete the program?: nothing What do you see as the benefits of succesfully completing the program? In other words, what do you hope to get out of participating in the program?: improved health Are there issues you are dealing with that will interfere with completing the program?: no Do you have a spouse or signficant other, family or friends who will help support you to complete the program?: yes
[2022-05-21 14:38] VITALS: BP 122/50; PULSE 70; O2SAT 97; BMI 30.7
--- NOTE | 2022-05-21 14:38 | CR.ITP_ITS ---
Diagnosis - General Information Admitting Diagnosis: PCI with coronary stent Personal Learning Style:: Audio/Visual, Demonstration, Group, Individual Preference, Written Stage of change r/t lifestyle modifications:: Contemplation Gave educational material for:: Treating Heart Disease, Emotions & Heart Disease, Stress Management & Relaxation, Sleep Disorders & Heart Disease, How The Heart Works, What it means to have Heart Disease, How Coronary Artery Disease is Diagnosed, Heart Procedures, What Heart Medications Do, Risk Factors & Modifications, Living an Active Life, Nutrition - Education/Goals Cardiac Rehabilitation Goals: 1. Maintain the individual as the primary focus of care. 2. To improve the patient's quality of life. 3. Identification of cardiac risk factors and provide cardiac risk factor management. 4. Enhance the psychosocial status of the patient. 5. Reconditioning enough to allow the patient to resume customary activities. 6. Control symptoms of cardiac disease Personal Goals: Initial Assessment: Improve energy level, Improve muscle strength and endurance, Improve diet and eating habits (eat healthier), Control risk factors (learn risk factor modification), Other goal: Scale for measuring improvement of personal goals: Enter appropriate number in Comments. 2 = Unchanged. 3 = Slightly Better. 4 = Moderate Improvement. 5 = Met my Goal - Diagnosis & Disease Process Outcomes/Goals: Pt IDs own risk factors & lifestyle modifications by Session 10, Verbalizes symptoms of angina & response by session 3., Pt independently manages, Other Additional Outcomes/Goals: Plan/Interventions: Assist Pt to ID & engage in lifestyle modification to reduce CVD risk, Instruct on individual risk factors, Review symptoms of angina & emergency actions, Review secondary diagnosis & identify educational needs., Other see comment 30 day Reassessments:: Not Met 30 day Reassessments:: Not Met 30 day Reassessments:: Not Met 30 day Reassessments:: Not Met Final Reassessments:: Not Met - Safety Referral to Physical Therapy: No Referral to [facility] Case Management: No Fall Risk Assessed:: Yes Assistive Devices:: None Exercise - Initial Assessment - Visit Date of Eval: 05/21/22 - initial eval Mets: Pre-: >3 METS for 30 minutes by discharge, >5 METS for 30 minutes by discharge, >7 METS for 30 minutes by discharge, Unable to meet goal due to: (see comment below) - Physician Prescribed Exercise Modalities: Treadmill, Rower, Airdyne, NuStep, SciFit, Lateral [place] Frequency: 3x/week for 12 weeks [36 sessions] Intensity: 60-80% of age predicted maximum heart rate reserve Current METSs:: 4 Target Heart Rate:: 93-120 Resting Blood Pressure: 122/50 EKG Type: NSR - Outcomes & Goals Goals:: Verbalizes understanding of THR, RPE & goal METS by session 6, Documents in home exercise log/reports 30 min aerobic 5 day/wk by DC, Demonstrates accurate pulse taking by DC, Other additional outcome/goals: see below - Intervention & Plan Exercise Program Goals: Instruct on personal THR & RPE, Instruct on MET level & personal MET goal, Show patient to take own pulse /validate performance until accurate, Instruct on home exercise, Other additional plan/int - Physical Activity Home Exercise Physical Activity - Home Exercise: Safe Exercise, Warm-up, Self-monitoring, Cool-Down, Home Exercise > 30 min Daily, Sitting Time <3 hours/daily - Outcomes & Goals Outcomes/Goals: Demonstrates correct Warm-up/exercise Cool-Down (S3) if = 2.5 METs, Verbalizes symptoms of exercise intolerance by Session 3 (S3), Demonstrate safe equipment use (S3) & follows exercise prescrition (6), Other: See below - Intervention & Plan Plan/Intervention: Instruct warm-up & cool-down if exercising at > 2 METs, Instruct on symptoms of exercise intolerance & actions to take, Instruct & monitor on saf, Assess intial functional capacity & safety risk, Other See below Nutrition - Initial Assessment - Program Goals Nutrition Program Goals: LDL <100 optimal. 100 - 129 Near optimal. 130 - 159 Borderline High. 160 - 189 High. Total Cholesterol <200 desirable. 200 - 239 Borderline High. >/= 240 High. HDL < 40 Low >/=60 High. Triglycerides <150 desirable. <199 optimal. VlDL 5 - 40. HgbA1C <7%. BMI <25 Patient has diagnosis of Hyperlipidemia (ICD E78)?: Yes - Visit Date of Assessment:: 05/21/22 - initial eval - Cholesterol/Lipids (Other Core Measures) Determine presence & major risk factors that modify LDL goal: Hypertension or hypertensive medication, Low HDL cholesterol <40 mg/dL*, Family history of premature CHD in Male < 55 years: female <65 yearsFa, Age men > 45 years; women >/= 55 years Outcomes/Goals: Pt IDs own risk factors & lifestyle modifications by Session 10, Verbalizes symptoms of angina & response by session 3., Pt independently manages, Other Additional Outcomes/Goals: Intervention/Plan: Advocate for lipid panel cholesterol medication if applicable, Instruct on personal lipid levels & lipid goals/NCEP guidelines, Instruct on cholesterol, Other additional plan/int Referral to dietitian:: Yes - medical nutrition therapy - Diabetes (Other Core Measures) Diabetes Type: Not Applicable - Weight Mgt (Other Care) Height: 5 ft 3 in Weight:: 76.204 kg BMI: 29.7 Diagnosis Overweight/Obesity BMI> 30% ICD-10 E66: No Outcomes/Goals: Pt sets, maintains & shows weight loss goal & trend during rehab, Other additional outcomes/goals Intervention/Plan: Instruct on ideal BMI & set weight loss goal w/patient, Assist pt to ID & incorporate diet changes for weight loss by S9, Refer to [facility] Weight Loss program as appropriate, Encourage goal of using 250- 300dcal per session for weight loss, Other additional plan/interventions - Healthy Eating Habits Will attend diet classes:: Yes Outcomes/Goals:: Consume diet rich in vegs,fruits,whole grain/high fiber,fish,lean meat, Limit sat/trans fats,cholesterol & added salts & sugars, Other additional outcome/goals: Intervention/Plan:: Assess current eating habits, Other Additional plan/interventions - Education Gave educational materials for:: Signs & symptoms of hypoglycemia, Signs & symptoms of hyperglycemia, Relate diabetes to coronary artery disease, Healthy eating Nutrition - 30-Day Assessment Nutrition - 60-Day Assessment Nutrition - 90-Day Assessment Nutrition - Final Assessment Core - Initial Assessment - Visit Date of Eval: 05/21/22 - initial eval - Medication Compliance Preventative Medication(s):: Aspirin, Clopidogrel/P2Y12 inhibit, Statin/lipid, Beta franklyn H/O mental health issues: depression, anxiety, or addiction?: No Doesn?t believe in the benefits of treatment?: No Believes medications are unnecessary or harmful?: No Has a concern about medication side effects?: No Expresses concern over the cost of medications?: No Outcomes/Goals: Verbalizes medications,desired effect & common side effects @ DC, Pt self-reports following medication regimen, Keeps card in wallet w/medications listed by DC, Other additional outcome/goals: Interventions/plans: Instruct on medication effects & side effects, Review medic ation list w/patient every two weeks, Instruct importance of taking meds as ordered & assist problem solving, Other additional - Tobacco Use Tobacco Use: Non-smoker Do you use smokeless tobacco?: No Outcomes/Goals: Smoking cessation achieved or maintained by discharge, Identify aids/strategies for achieving smoking cessation by session 6, Other additional outcome/goals Interventions/plan: Instruct on effects of smoking & provide smoking cessation resource, Assist pt to set quit date & provide encouragement, Assist pt to develop strategies to achieve/maintain quit date, Assist pt w/nicotine replacement & medication for cessation success, Other additional plan/interventions - Hypertension Hypertension Diagnosis:: Hypertension ICD-10 I10 Resting Blood Pressure:: 122/50 [place] [employer] Hypertension Guidelines: [place] [employer] Hypertension Guidelines. Normal BP Less than 120/80. Elevated BP 120/80. Hypertension Stage 1: BP 130-139/80-89. Hypertesnion Stage 2: BP 140 or higher/90 or higher. Hypertension Crisis: BP higher than 180/120 Outcomes/Goals: Able to verbalize/achieve optimal blood pressure <130/80, Incorporates diet changes & exercise for blood pressure control by DC, Other additional outcomes/goals Interventions/plan: Instruct on optimal blood pressure, hypertension & medications, Instruct on effects of sodium, alcohol, stress, exercise &hypertension, Other additional plan/interventions - Tobacco Cessation Referral Smoking Cessation Referral:: No Individual Education/Counseling:: No Education Schedule Given:: No Core - 30-Day Assessment Core - 60-Day Assessment Core - 90 Day Assessment Core - Final Assessment Psychosocial - Initial Assess - VIsit Date of Eval: 05/21/22 - initial eval History of previous Mental disease:: No - Outcomes/Goals: See list Psychosocial Outcomes/Goals:: ID's personal stressors & 2 strategies to manage stress by discharge, Other Additional outcome/goals: - Intervention/Plan: See List Interventions/Plan:: Assess stressors,coping strategies & signs of derpression on admission, Instruct/assist pt to develop coping & personal stress Mgt strategies, Refer to Behavioral Health if appropriate, Refer to Physician if appropriate, Instruct patient to recognize signs & symptoms of depression, Instruct patient to recog, Other additional plan/intervention Psychosocial - 30-Day Assess Psychosocial - 60-Day Assess Psychosocial - 90-Day Assess Psychosocial - Final Assessmen Patient Health Questionnaire Initial Assessment 1. Little interest or pleasure in doing things: Several days 2. Feeling down, depressed, or hopeless: Not at all 3. Trouble falling or staying asleep, or sleeping too much: Not at all 4. Feeling tired or having little energy: Several days 5. Poor appetite or overeating: Not at all 6. Feeling bad about yourself -- or that you are a failure or have let yourself or your family down: Not at all 7. Trouble concentrating on things, such as reading the newspaper or watching television: Not at all 8. Moving or speaking so slowly that other people could have noticed. Or the opposite - being so fidgety or restless that you have been moving around a lot more than usual: Not at all 9. Thoughts that you would be better off , or of hurting yourself in some way: Not at all How difficult have these problems made it for you to do your work, take care of things at home, or get along with other people?: Not difficult at all Total Score: 2 LEIDA-Q SV Test - Statements CAD is a disease of the arteries in the heart: False Examples of risk factors for heart disease: True Angina is chest pain or discomfort: True The benefits of resistance training include: True Eating more meat and dairy products: False Anti-platelet medications such as aspirin are important: True The only effective way to manage stress: False An exercise warm-up slowly increases heart rate: True Prepared, processed foods usually have high sodium: True Depression is common after a heart attack: True The statin medications lower cholesterol: True To control blood pressure, lower the amount of sodium: True If someone gets chest discomfort during walking: False Transfats are partially hydrogenated vegetable oils: True Sleep apnea that is not treated increases the risk: True To control cholesterol, one should become a vegetarian: False Someone knows if he/she is exercising at the right level: True Diabetes cannot be prevented with exercise & health eating: False Stress is a large risk for heart attack: True A diet that can help lower blood pressure is rich in: True - Total Score Total Correct Responses: 19 Self-Efficacy Initial Assessment We would like to know how confident you are in doing certain activities. Please select your confidence level for:: Select your confidence level for the following using the scale 1-10 where 1 is not at all confident and 10 is totally confident. Your score is the average of all 6 responses. Fatigue: How confident are you that you can keep the fatigue caused by your disease from interfering with the things you want to do? Select Number: 4 Physical Discomfort or Pain: How confident are you that you can keep the physical discomfort or pain of your disease from interfering with the things you want to do? Select Number: 8 Emotional Distress: How confident are you that you can keep the emotional distress caused by your disease from interfering with the things you want to do? Select Number: 10 Other Symptoms or Health Problems: How confident are you that you can keep other symptoms or health problems from interfering with the things you want to do? Select Number: 8 Different Tasks and Activities: How confident are you that you can do the different tasks and activities needed to manage your health condition so as to reduce your need to see a doctor? Select Number: 7 Medication: How confident are you that you can do things other than just taking medication to reduce how much your illness affects your everyday life? Select Number: 7 Total Score:: 7 Nutrition Survey - Nutrition Survey Initial Have you lost >10 lbs over the past 2 months without trying?: No Are you following a special diet at home for diabetes, low fat, or low salt?: No Are you interested in meeting with a dietitian for help understanding your diet?: Yes Do you eat less than 3 meals a day?: Yes Do you eat fatty meats (pickard, sausage, ribs, etc), fried foods, desserts, large amounts of salad dressings, margarine, butter, or cheese most days?: Yes Do you have food allergies? [Enter types in comment field]: No Do you eat in restaurants more than 3 times a week?: Yes Do you season food with salt, seasoning salt, or garlic salt?: Yes Do you used canned, boxed, frozen meals, or soups, seasoning packets?: Yes Total Score:: 6
[2022-05-21 14:51] VITALS: BP 122/50; BMI 29.7
== END | disposition home or self-care (01) ==
LOC: CR 13:41
PROVIDERS: PCP Family Medicine; Referring Provider Internal Medicine Cardiovascular Disease; Visit Provider Internal Medicine Cardiovascular Disease
DX: Z95.5 Presence of coronary angioplasty implant and graft (principal)

== ENCOUNTER 2022-06-18 13:00 | Outpatient (RCR) | payer MEDICARE, OTHER, SELFPAY ==
[2022-05-21 14:51] VITALS: BMI 29.7
== END 2022-06-18 23:59 ==
LOC: CR 13:00
PROVIDERS: PCP Family Medicine; Referring Provider Internal Medicine Cardiovascular Disease; Visit Provider Internal Medicine Cardiovascular Disease
DX: I25.10 Atherosclerotic heart disease of native coronary artery without angina pectoris (principal); Z95.5 Presence of coronary angioplasty implant and graft
CPT/HCPCS: 93798

== ENCOUNTER → 2022-07-02 | Outpatient (CLI) | payer MEDICARE, OTHER, SELFPAY ==
[2022-06-23 08:23] VITALS: BMI 25.7
--- NOTE | 2022-07-02 13:52 | CDU_ITS ---
Reason For Study: Carotid Bruit Rt. Velocities/BP Lt. Velocities/BP Prox CCA 76.8/22.0 cm/sec. Prox CCA 55.9/8.4 cm/sec. Mid CCA 88.1/21.1 cm/sec. Mid CCA 43.1/8.1 cm/sec. Dist CCA 82.5/28.6 cm/sec. Dist CCA 61.0/11.0 cm/sec. Prox ICA 211.5/68.9 cm/sec. Prox ICA 504.1/183.4 cm/sec. Mid ICA 208.9/74.1 cm/sec. Mid ICA 57.6/10.9 cm/sec. Dist ICA 134.4/55.9 cm/sec. Dist ICA 34.9/14.1 cm/sec. Rt. ICA/CCA = 2.4. Lt. ICA/CCA = 11.7. Prox ECA 66.7/5.3 cm/sec. Prox ECA 79.8/9.5 cm/sec. Rt. Vert. 55.6/16.0 cm/sec. Lt. Vert. 38.6/5.6 cm/sec. Right Extracranial There is heterogeneous, irregular atherosclerotic plaque noted in the right common carotid artery. There is heterogeneous, irregular atherosclerotic plaque noted in the right internal carotid artery. The atherosclerotic plaque causes acoustic shadowing. There is heterogeneous, irregular atherosclerotic plaque noted in the right external carotid artery. Antegrade flow is noted in the right vertebral artery. Left Extracranial There is heterogeneous, irregular atherosclerotic plaque noted in the left common carotid artery. There is heterogeneous, irregular atherosclerotic plaque noted in the left internal carotid artery. The atherosclerotic plaque causes acoustic shadowing. There is heterogeneous, irregular atherosclerotic plaque noted in the left external carotid artery. Antegrade flow is noted in the left vertebral artery. Procedure Carotid Duplex 76947. This is a Carotid Duplex examination using B-mode, color flow and specral Doppler. The exam was diagnostic. Exam performed in department. VL/Carotid Duplex Ultrasound Interpretation Summary Calcific plaque with shadowing at the proximal right internal carotid artery wi th 50 to 69% stenosis. Likely closer to the upper limits of that range. Less than 50% stenosis right external carotid artery Calcific plaque with shadowing at the proximal left internal carotid artery wit h significantly elevated velocities of greater than 70% stenosis and likely greater than 80% st enosis. Less than 50% stenosis left external carotid artery Patent and antegrade vertebral arteries bilaterally Ordering Physician: Kwan Umanzor Referring Physician: Kwan Umanzor MD Performed By: Ej Blackburn RVT
== END | disposition home or self-care (01) ==
LOC: CVS 13:52
PROVIDERS: PCP Family Medicine; Visit Provider Internal Medicine Cardiovascular Disease
DX: R09.89 Other specified symptoms and signs involving the circulatory and respiratory systems (principal); I25.10 Atherosclerotic heart disease of native coronary artery without angina pectoris; Z95.5 Presence of coronary angioplasty implant and graft
CPT/HCPCS: 93798; 93880

== ENCOUNTER 2022-07-18 13:00 | Outpatient (RCR) | payer MEDICARE, OTHER, SELFPAY ==
[2022-05-21 14:51] VITALS: BMI 29.7
--- NOTE | 2022-06-23 08:14 | CR.ITP_ITS ---
Diagnosis Exercise - 30-day Assessment - Visit Date of Eval: 06/23/22 Session #:: 11 - Physician Prescribed Exercise Modalities: Treadmill, Airdyne, NuStep, SciFit, Lateral Tr[place] Frequency: 3x/week for 12 weeks [36 sessions] Intensity: 60-80% of age predicted maximum heart rate reserve Current METSs:: 5.5 Target Heart Rate:: 93-120 Current RPE:: 13-14 Maximum Excercise HR:: 118 Resting Blood Pressure: 112/48 Maximum Exercise Blood Pressure: 160/58 - Outcomes & Goals Goals:: Verbalizes understanding of THR, RPE & goal METS by session 6, Documents in home exercise log/reports 30 min aerobic 5 day/wk by DC, Demonstrates accurate pulse taking by DC, Other additional outcome/goals: see below - Intervention & Plan Exercise Program Goals: Instruct on personal THR & RPE, Instruct on MET level & personal MET goal, Show patient to take own pulse /validate performance until accurate, Instruct on home exercise, Other additional plan/int - 30-day Reassessments 30 day Reassessments:: Progressing - THR explained - Physical Activity Home Exercise Physical Activity - Home Exercise: Safe Exercise, Warm-up, Self-monitoring, Cool-Down, Home Exercise > 30 min Daily, Sitting Time <3 hours/daily - Outcomes & Goals Outcomes/Goals: Demonstrates correct Warm-up/exercise Cool-Down (S3) if = 2.5 METs, Verbalizes symptoms of exercise intolerance by Session 3 (S3), Demonstrate safe equipment use (S3) & follows exercise prescrition (6), Other: See below - 30-day Reassessments 30 day Reassessments:: Progressing - warm up encouraged Nutrition - Initial Assessment Nutrition - 30-Day Assessment - Program Goals Nutrition Program Goals: LDL <100 optimal. 100 - 129 Near optimal. 130 - 159 Borderline High. 160 - 189 High. Total Cholesterol <200 desirable. 200 - 239 Borderline High. >/= 240 High. HDL < 40 Low >/=60 High. Triglycerides <150 desirable. <199 optimal. VlDL 5 - 40. HgbA1C <7%. BMI <25 Patient has diagnosis of Hyperlipidemia (ICD E78)?: Yes - Visit Date of Assessment:: 06/23/22 Session #:: 11 - Cholesterol/Lipids (Other Core Measures) Determine presence & major risk factors that modify LDL goal: Hypertension or hypertensive medication, Low HDL cholesterol <40 mg/dL*, Family history of premature CHD in Male < 55 years: female <65 yearsFa, Age men > 45 years; women >/= 55 years Outcomes/Goals: Pt IDs own risk factors & lifestyle modifications by Session 10, Verbalizes symptoms of angina & response by session 3., Pt independently manages, Other Additional Outcomes/Goals: Intervention/Plan: Advocate for lipid panel cholesterol medication if applicable, Instruct on personal lipid levels & lipid goals/NCEP guidelines, Instruct on cholesterol, Other additional plan/int 30-day Reassessments:: Progressing - risk factors explained - Diabetes (Other Core Measures) Diabetes Type: Not Applicable - Weight Mgt (Other Care) Height: 5 ft 3 in Weight:: 65.998 kg BMI: 25.7 Diagnosis Overweight/Obesity BMI> 30% ICD-10 E66: No Diagnosis High BMI/Morbid Obesity BMI> 35% ICD-10 Z68: No Outcomes/Goals: Pt sets, maintains & shows weight loss goal & trend during rehab, Other additional outcomes/goals Intervention/Plan: Instruct on ideal BMI & set weight loss goal w/patient, Assist pt to ID & incorporate diet changes for weight loss by S9, Refer to [facility] program as appropriate, Encourage goal of using 250-300dcal per session for weight loss, Other additional plan/interventions 30 day Reassessments:: Progressing - will attend nutrition class - Healthy Eating Habits Will attend diet classes:: Yes Outcomes/Goals:: Consume diet rich in vegs,fruits,whole grain/high fiber,fish,lean meat, Limit sat/trans fats,cholesterol & added salts & sugars, Other additional outcome/goals: Intervention/Plan:: Assess current eating habits, Other Additional plan/interventions 30-day Reassessments:: Progressing - will attend nutrition class - Education Gave educational materials for:: Signs & symptoms of hypoglycemia, Signs & symptoms of hyperglycemia, Relate diabetes to coronary artery disease, Healthy eating Nutrition - 60-Day Assessment Nutrition - 90-Day Assessment Nutrition - Final Assessment Core - Initial Assessment Core - 30-Day Assessment - Visit Date of Eval: 06/23/22 Session #:: 11 - Medication Compliance Preventative Medication(s):: Aspirin, Clopidogrel/P2Y12 inhibit, Statin/lipid, Beta franklyn H/O mental health issues: depression, anxiety, or addiction?: No Doesn?t believe in the benefits of treatment?: No Believes medications are unnecessary or harmful?: No Has a concern about medication side effects?: No Expresses concern over the cost of medications?: No Outcomes/Goals: Verbalizes medications,desired effect & common side effects @ DC, Pt self-reports following medication regimen, Keeps card in wallet w/medications listed by DC, Other additional outcome/goals: Interventions/plans: Instruct on medication effects & side effects, Review medication list w/patient every two weeks, Instruct importance of taking meds as ordered & assist problem solving, Other additional 30-day Reassessments:: Progressing - encouraged to take meds properly - Tobacco Use Tobacco Use: Non-smoker - Hypertension Hypertension Diagnosis:: Hypertension ICD-10 I10 Resting Blood Pressure:: 112/48 [place] [employer] Hypertension Guidelines: [place] [employer] Hypertension Guidelines. Normal BP Less than 120/80. Elevated BP 120/80. Hypertension Stage 1: BP 130-139/80-89. Hypertesnion Stage 2: BP 140 or higher/90 or higher. Hypertension Crisis: BP higher than 180/120 Peak Exercise Blood Pressure:: 160/58 Outcomes/Goals: Able to verbalize/achieve optimal blood pressure <130/80, Incorporates diet changes & exercise for blood pressure control by DC, Other additional outcomes/goals Interventions/plan: Instruct on optimal blood pressure, hypertension & medications, Instruct on effects of sodium, alcohol, stress, exercise &hypertension, Other additional plan/interventions 30 day Reassessments:: Progressing - encouraged to take meds - Tobacco Cessation Referral Smoking Cessation Referral:: No Individual Education/Counseling:: No Education Schedule Given:: Yes Core - 60-Day Assessment Core - 90 Day Assessment Core - Final Assessment Psychosocial - Initial Assess Psychosocial - 30-Day Assess - VIsit Date of Eval: 06/23/22 Session #:: 11 History of previous Mental disease:: No Psychosocial - 60-Day Assess Psychosocial - 90-Day Assess Psychosocial - Final Assessmen Patient Health Questionnaire 30-Day Re-eval Assessment 1. Little interest or pleasure in doing things: Several days 2. Feeling down, depressed, or hopeless: Not at all 3. Trouble falling or staying asleep, or sleeping too much: Not at all 4. Feeling tired or having little energy: Several days 5. Poor appetite or overeating: Not at all 6. Feeling bad about yourself -- or that you are a failure or have let yourself or your family down: Not at all 7. Trouble concentrating on things, such as reading the newspaper or watching television: Not at all 8. Moving or speaking so slowly that other people could have noticed. Or the opposite - being so fidgety or restless that you have been moving around a lot more than usual: Not at all 9. Thoughts that you would be better off , or of hurting yourself in some way: Not at all How difficult have these problems made it for you to do your work, take care of things at home, or get along with other people?: Not difficult at all Total Score: 2 Self-Efficacy 30-Day Re-eval Assessment We would like to know how confident you are in doing certain activities. Please select your confidence level for:: Select your confidence level for the following using the scale 1-10 where 1 is not at all confident and 10 is totally confident. Your score is the average of all 6 responses. Fatigue: How confident are you that you can keep the fatigue caused by your disease from interfering with the things you want to do? Select Number: 4 Physical Discomfort or Pain: How confident are you that you can keep the physical discomfort or pain of your disease from interfering with the things you want to do? Select Number: 8 Emotional Distress: How confident are you that you can keep the emotional distress caused by your disease from interfering with the things you want to do? Select Number: 10 Other Symptoms or Health Problems: How confident are you that you can keep other symptoms or health problems from interfering with the things you want to do? Select Number: 8 Different Tasks and Activities: How confident are you that you can do the different tasks and activities needed to manage your health condition so as to reduce your need to see a doctor? Select Number: 7 Medication: How confident are you that you can do things other than just taking medication to reduce how much your illness affects your everyday life? Select Number: 7 Total Score:: 7 Nutrition Survey
[2022-06-23 08:23] VITALS: BP 112/48; BP 160/58; BMI 25.7
== END 2022-07-19 23:59 ==
LOC: CR 13:00
PROVIDERS: PCP Family Medicine; Referring Provider Internal Medicine Cardiovascular Disease; Visit Provider Internal Medicine Cardiovascular Disease
DX: I25.10 Atherosclerotic heart disease of native coronary artery without angina pectoris (principal); Z95.5 Presence of coronary angioplasty implant and graft
CPT/HCPCS: 93798

== ENCOUNTER → 2022-07-25 | Outpatient (CLI) | payer MEDICARE, OTHER, SELFPAY ==
[2022-06-23 08:23] VITALS: BMI 25.7
--- NOTE | 2022-07-25 14:02 | CT_ITS ---
STUDY: CTA NECK WITH CONTRAST REASON FOR EXAM: Female, 77 years old. Carotid stenosis RADIATION DOSAGE (If Supplied By Facility): CTDIvol = ( 15.18 ) mGy, DLP = ( 401.18 ) mGycm TECHNIQUE: CT angiography with multi-detector data acquisition was performed from the aortic arch to the skull base following intravenous administration of IV 100mL Isovue-370. MIP images were reconstructed from the axial data set. Post-processing of the angiographic images was performed, with multiplanar reformation and 3D reconstruction. Individualized dose optimization techniques were used for this CT. COMPARISON: None. FINDINGS: AORTIC ARCH: There is atherosclerotic calcific plaque formation of the aortic arch and great vessels arising from the aortic arch, without a hemodynamically significant stenosis. There is a normal origin of the brachiocephalic, left common carotid, and left subclavian arteries. Atherosclerotic plaque formation at the origin of the great vessels of the neck. RIGHT CAROTID ARTERIES: Normal right common carotid artery (CCA). Normal right common carotid bulb. There is extensive atherosclerotic plaque formation of the origin of the right internal carotid artery with an estimated stenosis of greater than 70%. Normal visualized cervical portion of the right internal carotid artery. Normal origin of the right external carotid artery (ECA). LEFT CAROTID ARTERIES: Normal left common carotid artery (CCA). Normal left common carotid bulb. There is moderate atherosclerotic plaque formation of the origin of the left internal carotid artery with an estimated stenosis of 50-69% stenosis. Normal visualized cervical portion of the left internal carotid artery. There is severe atherosclerotic plaque formation of the origin of the left external carotid artery with a near complete occlusion. VERTEBRAL ARTERIES: There is enhancement within the bilateral vertebral arteries with a small left vertebral artery, and a dominant right vertebral artery. CT/CTA Neck W/WO Contrast IMPRESSION: Calcific plaque at the origin of the right internal carotid artery with a greater than 70% narrowing. 50-69% stenosis at the origin of the left internal carotid artery. Small left vertebral artery. Electronically Signed: Jovan Reddy MD at 15:04 EST ,
[2022-07-25 14:36] LABS: CREATININE FINGERSTICK 0.9 mg/dL (0.55-1.02); EGFR FINGERSTICK > 60.0000 mL/min (>60)
== END | disposition home or self-care (01) ==
LOC: CT 14:01
PROVIDERS: PCP Family Medicine; Visit Provider Surgery
DX: I65.23 Occlusion and stenosis of bilateral carotid arteries (principal); I25.10 Atherosclerotic heart disease of native coronary artery without angina pectoris; Z95.5 Presence of coronary angioplasty implant and graft
CPT/HCPCS: 70498; 93798; Q9967

== ENCOUNTER 2022-08-04 13:00 | Outpatient (RCR) | payer MEDICARE, OTHER, SELFPAY ==
[2022-06-23 08:23] VITALS: BMI 25.7
[2022-07-20 00:30] VITALS: BP 112/48; BP 160/58
== END 2022-08-19 23:59 ==
LOC: CR 13:00
PROVIDERS: PCP Family Medicine; Referring Provider Internal Medicine Cardiovascular Disease; Visit Provider Internal Medicine Cardiovascular Disease
DX: I25.10 Atherosclerotic heart disease of native coronary artery without angina pectoris (principal); Z95.5 Presence of coronary angioplasty implant and graft; R09.89 Other specified symptoms and signs involving the circulatory and respiratory systems
CPT/HCPCS: 93798

== ENCOUNTER 2022-08-06 10:29 | Inpatient (IN) | payer MEDICARE, OTHER, SELFPAY ==
[2022-06-23 08:23] VITALS: BMI 25.7
--- NOTE | 2022-08-04 12:23 | EKG12_ITS ---
Test Reason : PRE OP Blood Pressure : / mmHG Vent. Rate : 064 BPM Atrial Rate : 064 BPM P-R Int : 152 ms QRS Dur : 076 ms QT Int : 406 ms P-R-T Axes : 066 026 059 degrees QTc Int : 418 ms Normal sinus rhythm Normal ECG Confirmed by OFELIA ROPER, KEKE ([id number]), web content editor NABILA GRIFFITHS ([id number]) on 08/05/2022 9:35:34 AM Referred By: Kwan Umanzor Confirmed By:KEKE GILBERT MD
[2022-08-04 14:45] LABS: Hematocrit 37.7 % (37-47); Hemoglobin 12.3 g/dL (12.0-15.0); Mean Corp Hgb Conc 32.6 g/dL (32-36); Mean Corpuscular Hgb 29.2 pg (27.0-32.0); Mean Corpuscular Volume 89.5 fL (81-99); Mean Platelet Vol. 11.4 fl (6.2-12.0); Platelet Count 198 K/mm3 (150-450); RBC Distribution Width CV 13.6 % (11.6-14.6); RBC Distribution Width SD 44.6 fl (35.1-43.9); Red Blood Count 4.21 M/mm3 (4.2-5.4); White Blood Count 5.4 K/mm3 (4.4-11.0)
[2022-08-04 14:53] LABS: Anion Gap 10 (5-15); BUN 19 mg/dL (7-18); BUN/Creat Ratio 17.3 RATIO (10-20); Chloride 108 mmol/L (98-107); EST Glomerular Filtration Rate 51 mL/min (>60); Est Glom Filt Rate - Afr Amer 62 mL/min (>60); Glucose 101 mg/dL (74-106); Sodium Level 139 mmol/L (136-145)
[2022-08-06] VITALS (17 sets, daily range): BP systolic 72–158; BP diastolic 37–59; PULSE 58–83; RESP 15–18; TEMP 36.2–36.6; O2SAT 92–100; BMI 25.4
[2022-08-06] MEDS: Lactated Ringers 1,000 ML 15 ML IV ×2 (11:04→12:57)
--- NOTE | 2022-08-06 12:29 | PCM.HP.BLA ---
History and Physical Date of Admission: 08/06/22 Chief Complaint: Carotid stenosis Engraver Block Required: No Is patient in pain?: No Allergies prednisone Allergy (Unknown, Verified 07/24/22 13:33) Unknown Medications amlodipine 5 mg tablet (Norvasc) 5 mg PO QHS 05/06/22 [History Confirmed 07/29/22] aspirin 81 mg chewable tablet (Aspirin Childrens) 81 mg PO DAILY 05/06/22 [History Confirmed 07/29/22] losartan 100 mg tablet 100 mg PO DAILY 05/06/22 [History Confirmed 07/29/22] metoprolol succinate 100 mg tablet,extended release 24 hr 50 mg PO DAILY 05/06/22 [History Confirmed 07/29/22] atorvastatin 40 mg tablet 40 mg PO QHS 30 days #30 tabs 05/08/22 [Rx Confirmed 07/29/22] clopidogrel 75 mg tablet 75 mg PO DAILY 30 days #30 tabs 05/08/22 [Rx Confirmed 07/29/22] cholecalciferol (vitamin D3) 50 mcg (2,000 unit) tablet 50 mcg PO DAILY 06/26/22 [History Confirmed 07/29/22] pantoprazole 40 mg tablet,delayed release 40 mg PO DAILY 06/26/22 [History Confirmed 07/29/22] PFSH Medical History? Aortic valve stenosis, acquired Atherosclerotic heart disease of [place] coronary artery without angina pectoris Bilateral carotid artery disease Borderline diabetes CAD (coronary artery disease) Cardiac murmur CKD (chronic kidney disease) Diabetes mellitus Essential hypertension GERD (gastroesophageal reflux disease) High cholesterol HLD (hyperlipidemia) HTN (hypertension) Hypertension Mixed hyperlipidemia Non-rheumatic tricuspid valve insufficiency Nonrheumatic aortic (valve) stenosis Presence of stent in coronary artery (~05/07/22) Surgical History? Presence of coronary angioplasty implant and graft (~05/07/22) S/P PTCA (percutaneous transluminal coronary angioplasty) Family History? Father?? CVA (cerebral vascular accident)Sister CAD (coronary artery disease) Social History? Smoking Status:? Never smoker alcohol intake:? never substance use type:? does not use caffeine:? No HPI HPI HPI: 77-year-old female returns status post CTA of the carotids hip were performed on July 28, 2022.? I reviewed these images personally and I recontacted and I ask that he review his previous interpretation which suggested only 50 to 69% stenosis of the left internal carotid.? I had evaluated this is a high-grade critical stenosis.? He has provided an addendum where he concurs with my evaluation that there is critical stenosis of the left internal carotid.? In addition there is felt to be greater than 70% stenosis of the right internal carotid. Today was a 30-minute [id number] consultative appointment regarding the carotid duplex imaging findings and the CTA of the carotid findings. 07/28/[address] Jovan Reddy MD on 07/25/22 at 1543 ADDENDUM This is an addendum report. There is a tight stenosis at the origin of the left internal carotid artery. Electronically Signed: Jovan Reddy MD at 15:43 EST , Signed STUDY:? CTA NECK WITH CONTRAST REASON FOR EXAM: ? Female, 77 years old.? Carotid stenosis RADIATION DOSAGE (If Supplied By Facility):? CTDIvol = ( 15.18 ) mGy, DLP = ( 401.18 ) mGycm TECHNIQUE: ? CT angiography with multi-detector data acquisition was performed from the aortic arch to the skull base following intravenous administration of IV 100mL Isovue-370.? MIP images were reconstructed from the axial data set.? Post-processing of the angiographic images was performed, with multiplanar reformation and 3D reconstruction. Individualized dose optimization techniques were used for this CT. COMPARISON: ? None. FINDINGS: AORTIC ARCH: There is atherosclerotic calcific plaque formation of the aortic arch and great vessels arising from the aortic arch, without a hemodynamically significant stenosis. There is a normal origin of the brachiocephalic, left common carotid, and left subclavian arteries.? Atherosclerotic plaque formation at the origin of the great vessels of the neck. RIGHT CAROTID ARTERIES: Normal right common carotid artery (CCA).? Normal right common carotid bulb. There is extensive atherosclerotic plaque formation of the origin of the right internal carotid artery with an estimated stenosis of greater than 70%.? Normal visualized cervical portion of the right internal carotid artery. Normal origin of the right external carotid artery (ECA). LEFT CAROTID ARTERIES: Normal left common carotid artery (CCA).? Normal left common carotid bulb. There is moderate atherosclerotic plaque formation of the origin of the left internal carotid artery with an estimated stenosis of 50-69% stenosis. Normal visualized cervical portion of the left internal carotid artery. There is severe atherosclerotic plaque formation of the origin of the left external carotid artery with a near complete occlusion. VERTEBRAL ARTERIES: There is enhancement within the bilateral vertebral arteries with a small left vertebral artery, and a dominant right vertebral artery. CT/CTA Neck W/WO Contrast IMPRESSION: Calcific plaque at the origin of the right internal carotid artery with a greater than 70% narrowing. ? 50-69% stenosis at the origin of the left internal carotid artery. ? Small left vertebral artery. ? Electronically Signed: Jovan Reddy MD at 15:04 EST , Visit Reasons:?Carotid Stenosis Chief Complaint: Carotid stenosis Is patient in pain?: No Allergies prednisone Allergy (Unknown, Verified 07/24/22 13:33) Unknown Medications amlodipine 5 mg tablet (Norvasc) 5 mg PO QHS 05/06/22 [History Confirmed 07/24/22] aspirin 81 mg chewable tablet (Aspirin Childrens) 81 mg PO DAILY 05/06/22 [History Confirmed 07/24/22] losartan 100 mg tablet 100 mg PO DAILY 05/06/22 [History Confirmed 07/24/22] metoprolol succinate 100 mg tablet,extended release 24 hr 50 mg PO DAILY 05/06/22 [History Confirmed 07/24/22] atorvastatin 40 mg tablet 40 mg PO QHS 30 days #30 tabs 05/08/22 [Rx Confirmed 07/24/22] clopidogrel 75 mg tablet 75 mg PO DAILY 30 days #30 tabs 05/08/22 [Rx Confirmed 07/24/22] cholecalciferol (vitamin D3) 50 mcg (2,000 unit) tablet 50 mcg PO DAILY 06/26/22 [History Confirmed 07/24/22] pantoprazole 40 mg tablet,delayed release 40 mg PO DAILY 06/26/22 [History Confirmed 07/24/22] PFSH Medical History? Aortic valve stenosis, acquired Atherosclerotic heart disease of [place] coronary artery without angina pectoris Bilateral carotid artery disease Borderline diabetes CAD (coronary artery disease) Cardiac murmur CKD (chronic kidney disease) Diabetes mellitus Essential hypertension GERD (gastroesophageal reflux disease) High cholesterol HLD (hyperlipidemia) HTN (hypertension) Hypertension Mixed hyperlipidemia Non-rheumatic tricuspid valve insufficiency Nonrheumatic aortic (valve) stenosis Presence of stent in coronary artery (~05/07/22) Surgical History? Presence of coronary angioplasty implant and graft (~05/07/22) S/P PTCA (percutaneous transluminal coronary angioplasty) Family History? Father?? CVA (cerebral vascular accident)Sister CAD (coronary artery disease) Social History? Smoking Status:? Never smoker alcohol intake:? never substance use type:? does not use caffeine:? No HPI HPI HPI: 77-year-old female who had unstable angina pectoris on April 28, 2022 and subsequently treated with a left circumflex PTCA with GWYN.? Her medications include low-dose aspirin and clopidogrel.? She has aortic valvular stenosis and atherosclerotic cardiovascular disease and nonrheumatic tricuspid valve insufficiency.? In addition she has chronic kidney disease.? As of May 06, 2022 echocardiogram showed an ejection fraction of 65%.? A stress test of May 20, 2022 suggest no ischemia with an ejection fraction of 91%.? Her lipid labs are stable.? She was noted to have a left carotid bruit.? As of May 08, 2022 she is mildly anemic with a hemoglobin 11.2 and hematocrit of 34.3 with a platelet count of 157,000.? BUN of 13 creatinine of 0.88. As of July 02, 2022 she had carotid duplex imaging demonstrating 50 to 69% stenosis of the right internal carotid artery and greater than 70% stenosis likely greater than 80% stenosis of the left internal carotid artery.? The patient is referred by Dr. Kwan Umanzor for surgical consultation regarding extracranial carotid artery occlusive disease and a written compromise surgical consult recommendations will return to him. Medical complexity additionally increased by chronic gastroesophageal reflux disease and use of pantoprazole at 40 mg daily in a 77-year-old female. The patient states that she was noted to have sounds in her carotids but she suggest that this was likely felt to be radiation from her cardiac murmur.? She does not recall ever previously having a carotid duplex exam until this recent 1.? She denies TIA or CVA.? She has no orthostasis.? No visual changes since motor or sensory loss.? No speech changes. 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 Velocities/BP ? Lt. Velocities/BP Prox CCA 76.8/22.0 cm/sec.? Prox CCA 55.9/8.4 cm/sec. Mid CCA 88.1/21.1 cm/sec. ? Mid CCA 43.1/8.1 cm/sec. Dist CCA 82.5/28.6 cm/sec.? Dist CCA 61.0/11.0 cm/sec. Prox ICA 211.5/68.9 cm/sec. ? Prox ICA 504.1/183.4 cm/sec. Mid ICA 208.9/74.1 cm/sec.? Mid ICA 57.6/10.9 cm/sec. Dist ICA 134.4/55.9 cm/sec. ? Dist ICA 34.9/14.1 cm/sec. Rt. ICA/CCA = 2.4.? Lt. ICA/CCA = 11.7. Prox ECA 66.7/5.3 cm/sec. ? Prox ECA 79.8/9.5 cm/sec. Rt. Vert. 55.6/16.0 cm/sec. ? Lt. Vert. 38.6/5.6 cm/sec. Right Extracranial There is heterogeneous, irregular atherosclerotic plaque noted in the right common carotid artery. There is heterogeneous, irregular atherosclerotic plaque noted in the right internal carotid artery. The atherosclerotic plaque causes acoustic shadowing. There is heterogeneous, irregular atherosclerotic plaque noted in the right external carotid artery. Antegrade flow is noted in the right vertebral artery. Left Extracranial There is heterogeneous, irregular atherosclerotic plaque noted in the left common carotid artery. There is heterogeneous, irregular atherosclerotic plaque noted in the left internal carotid artery. The atherosclerotic plaque causes acoustic shadowing. There is heterogeneous, irregular atherosclerotic plaque noted in the left external carotid artery. Antegrade flow is noted in the left vertebral artery. Procedure Carotid Duplex 07289. This is a Carotid Duplex examination using B-mode, color flow and specral Doppler. The exam was diagnostic. Exam performed in department. VL/Carotid Duplex Ultrasound Interpretation Summary Calcific plaque with shadowing at the proximal right internal carotid artery with 50 to 69% stenosis. Likely closer to the upper limits of that range. Less than 50% stenosis right external carotid artery Calcific plaque with shadowing at the proximal left internal carotid artery with significantly elevated velocities of greater than 70% stenosis and likely greater than 80% stenosis. Less than 50% stenosis left external carotid artery Patent and antegrade vertebral arteries bilaterally ? ? Ordering Physician: Kwan Umanzor Referring Physician: Kwan Umanzor MD Performed By: Ej Blackburn RVT General General: No weight change, appetite, fatigue, colon cancer, breast cancer or weakness HEENT HEENT: No difficulty swallowing, eye injury, eye surgery, swollen glands or hoarseness Endo Endocrine: No thyroid disease, diabetes mellitus, thyroid cancer, Hair loss, heat intolerance or cold intolerance Skin Skin: No rash or changing moles Musc Musculoskeletal: No back problems, arthritis, rheumatoid arthritis, gout or joint pain Cardio Cardiovascular: Yes murmur, heart disease, high blood pressure and heart stent; No pacemaker, atrial fibrillation, heart attack, palpitations, shortness of breat with exertion or chest pain Psych Psychiatric: No depression, anxiety or hearing voices Resp Respiratory: No shortness of breath, No sleep apnea, No cough, No COPD, No asthma, No emphysema and No wheezing Gastro Gastrointestinal: No abdominal pain, No nausea or vomiting, No diarrhea, No constipation, No blood in stool, Yes acid reflux, No hemorrhoids, No ulcers, No gallbladder problem and No black,tarry stools [place] Hematologic: Yes blood thinners, No blood disorders, No bleeding, No anemia and No blood clots Neuro Neurologic: No system reviewed and no additional complaints, except as documented, No as per HPI, No abnormal gait, No abnormal hearing, No abnormal movements, No abnormal speech, No behavioral changes, No burning sensations, No confusion, No convulsions, No disequilibrium, No dizziness, No localized weakness, No frequent falls, No headache(s), No lack of coordination, No loss of vision, No memory loss, Yes numbness, No other visual disturbances, No radicular pain, No restless legs, No sensory deficit, No syncope, Yes tingling, No tremor(s), No weakness and No other Exam Const General: cooperative, healthy appearing, comfortable and no acute distress Nutritional Appearance: average body habitus Orientation: alert, awake and oriented x3 [facility] Head: normal to inspection Eyes General: appearance normal, both eyes and all related structures Neck Neck: normal visual inspection Chest Chest palpation & inspection: normal inspection of the chest Resp Effort & Inspection: normal respiratory effort Auscultation: clear to auscultation bilaterally Cardio Rate: regular rate Rhythm: regular rhythm Other: Bilateral radials 3+.? Bilateral brachials 3+.? Bilateral carotids 3+ with 3/6 bruits bilaterally Bilateral femorals 2+ 3/6 systolic ejection murmur GI Inspection: normal to inspection Palpation: soft Auscultation: normal bowel sounds Other: 2/6 abdominal bruit.? Aorta is palpable but not expansile or pulsatile Musc Cervical Spine: normal cervical lordosis Skin General: no rashes or lesions noted Neuro General: patient alert, patient awake and patient oriented x3 Cognition: normal cognition Extrem General: no calf tenderness Psych Appearance: grossly normal Assessment and Plan Assessment and Plan (1) Bilateral carotid artery disease: ?Status:?Acute (2) CKD (chronic kidney disease): ?Status:?Chronic (3) Presence of stent in coronary artery: ?Status:?Acute ?Comment: Successful GWYN Prox LCX using Orsirio 3.0x22 mm, post-dilated using 3.[address] Dietrich 05/07/22 (4) Atherosclerotic heart disease of [place] coronary artery without angina pectoris: ?Status:?Acute (5) GERD (gastroesophageal reflux disease): ?Status:?Acute ? ? ? Orders: Orders CTA Neck W/WO Contrast? Today? I65.23 - Occlusion and stenosis of bilateral carotid arteries ? Plan I have described to the patient that she appears to have bilateral clinically significant asymptomatic carotid artery occlusive disease.? It would appear to be greater than 70% and likely greater than 80% on the left.? I recommend to her that we obtain a CTA of the carotids and then have her return to the office.? She is on aspirin and clopidogrel therapy because of her recent coronary intervention and this will not be able to be ceased. I then spent time with her present comparing and contrasting left carotid endarterectomy with bovine patch angioplasty versus carotid stenting.? I have been very straightforward instructing them that I do not personally stent carotids but would be able to refer them to someone who does. She has had an opportunity to ask and have questions answered.? We will have her return to the office soon after his CT 8 to try to continue to help expedite her care.? I very much appreciate the kind opportunity of assisting with her surgical care. Copy: Dr. Feliciano Aguiar and Dr. Kwan Choi M.D., F.A.C.S Assessment and Plan Assessment and Plan (1) Bilateral carotid artery disease: ?Status:?Acute ?Plan: 77-year-old female.? She has critical stenosis of the left internal carotid with poststenotic dilatation of the carotid.? The mid and distal internal carotid very difficult imaging secondary to tortuosity Distinct stenosis at that location.? I have personally reviewed her imaging as noted above. We had an extensive discussion today regarding recommendations for surgical intervention I have discussed the benefits and risk of carotid enterectomy and comparing compressed of those with carotid artery stenting.? I do believe that she is a candidate for carotid endarterectomy.? The bifurcation would appear to be in a favorable pulse situation.? Because of her coronary stenting we cannot comfortably cease her anticoagulation.? She is aware that she will continue on her aspirin and clopidogrel therapy.? She has a rather thin neck and so hemostasis postoperatively should be achievable surgically and with gentle compression.? She is aware of technique benefit risk complication alternatives including myocardial infarction and stroke in addition to other postoperative complications.? She has had an opportunity to ask and have questions answered.? She would like to pursue with surgical intervention.? It is of note that OR scheduling currently is compromised secondary to OR availability and staffing.? We will schedule her at absolute earliest convenience.? She is aware that arterial line monitoring will be utilized. She has had an opportunity to ask and have questions answered we will proceed as noted. Copy Dr. Feliciano Aguiar and Dr. Kwan Choi M.D., F.A.C.S I have examined the patient and the H&P has been reviewed. There are no clinical changes since date of exam. Alberto Choi M.D., F.A.C.S.
--- NOTE | 2022-08-06 12:30 | PLAQ_PTH ---
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 Alberto Choi MD : 1945 BED: 1 DIS: 08/07/2022 SPEC #: [id number] RECD: 08/06/22 16:45 STATUS: WHIT RICHARDS #: [id number] JUAN ALBERTO: 08/06/22 12:[address]: Alberto Choi DEPT: SURGICAL PATHOLOGY RECD BY: Nunu Albarran ENTERED: 08/07/22 11:52 SP TYPE: PLAQUE OTHR DR: Dr. Feliciano Aguiar MD Tissues: PLAQUE Procedures: Decalcification bone/plaque Surgery Specimen Level III HEADER OPERATION: Carotid endarterectomy with Bovine patch and angioplasty PRE-OP DIAGNOSIS: Bilateral carotid artery disease TISSUE SUBMITTED: Left carotid plaque MICROSCOPIC DIAGNOSIS Left carotid plaque, endarterectomy: Atherosclerotic tissue with focal calcifications (plaque). SJ:roderick 08/13/2022 GROSS DESCRIPTION Received in fixative is one container labeled with the patient's name and designated left carotid plaque. The specimen consists of a Y-shaped piece of tubular, de anda, indurated tissue measuring 2.5 cm in length and 0.6 cm in diameter. The specimen cuts focally with gritty sensation. The entire specimen is submitted in one cassette after decalcification. / MEHRAN:roderick 08/07/2022 TC:5 CPT: 31379, 25220
--- NOTE | 2022-08-06 12:30 | DCINST_ITS ---
Documented by User: Dr. Alberto Choi MD 08/06/22 12:31 Discharge Instructions Diet Discharge Diet: Light diet - advance as tolerated Activity Discharge Activity: May Not Drive and May Shower (May shower starting on Thursday) Weight Bearing Status: Weight bearing as tolerated Dressing / Incision Call your doctor if your incision/area has: Continuous Slow Oozing, Sudden Inc reased Bleeding and Increased Redness Call your doctor if you observe: Fever of 101 or Higher Follow Up Care Please Follow Up With: Alberto Choi MD When: Please call the office at [phone] for follow-up in approximately 10 days Test Results: Test results from this visit will be discussed in further detail at your follow- up appointment, if applicable. Discharge Plan Admission Admit Date/Time: 08/06/22 10:29 Primary Reason for Your Visit: Left carotid endarterectomy Attending Provider: Alberto Choi Primary Care Provider: Feliciano Aguiar Instructions Additional Instructions / Restrictions: Please restart your Plavix on Thursday, 08/09. Please refrain from getting the incision wet until Thursday, 08/10 Discharge Orders/Prescriptions Prescriptions: Continued pantoprazole 40 mg tablet,delayed release (DR/EC) 40 mg PO DAILY cholecalciferol (vitamin D3) 50 mcg (2,000 unit) tablet 50 mcg PO DAILY metoprolol succinate 100 mg tablet extended release 24 hr 50 mg PO DAILY amlodipine [Norvasc] 5 mg tablet 5 mg PO QHS aspirin [Aspirin Childrens] 81 mg tablet,chewable 81 mg PO DAILY Label Comments: 1 tablet by mouth once a day losartan 100 mg tablet 100 mg PO DAILY atorvastatin 40 mg tablet 40 mg PO QHS Held clopidogrel 75 mg tablet 75 mg PO DAILY Hold Instructions: Resume on 08/09/22. Referrals / Follow Up: Feliciano Aguiar MD [Primary Care Provider] - Alberto Choi MD [Med Staff - Active Staff] - (Please contact our office to follow-up in 10 days from discharge) Disposition Disposition (needs filled in before D/C Order can be placed): Home, Self Care Documented by User: aNmrata HESTER PA-C 08/07/22 11:22 Discharge Instructions Activity Discharge Activity: May Not Drive (For 5 days) and May Shower (May shower starting on Thursday, 08/10) Lifting Restrictions: No lifting greater than 10 pounds Dressing / Incision Suture Line Care: Avoid Pulling/Pushing and Avoid Pinching/Bending Discharge Plan Admission Admit Date/Time: 08/06/22 10:29 Primary Reason for Your Visit: Left carotid endarterectomy Attending Provider: Alberto Choi Primary Care Provider: Feliciano Aguiar Instructions Additional Instructions / Restrictions: Please restart your Plavix on Thursday, 08/09. Please refrain from getting the incision wet until Thursday, 08/10 Discharge Orders/Prescriptions Prescriptions: Continued pantoprazole 40 mg tablet,delayed release (DR/EC) 40 mg PO DAILY cholecalciferol (vitamin D3) 50 mcg (2,000 unit) tablet 50 mcg PO DAILY metoprolol succinate 100 mg tablet extended release 24 hr 50 mg PO DAILY amlodipine [Norvasc] 5 mg tablet 5 mg PO QHS aspirin [Aspirin Childrens] 81 mg tablet,chewable 81 mg PO DAILY Label Comments: 1 tablet by mouth once a day losartan 100 mg tablet 100 mg PO DAILY atorvastatin 40 mg tablet 40 mg PO QHS Held clopidogrel 75 mg tablet 75 mg PO DAILY Hold Instructions: Resume on 08/09/22. Referrals / Follow Up: Feliciano Aguiar MD [Primary Care Provider] - Alberto Choi MD [Med Staff - Active Staff] - (Please contact our office to follow-up in 10 days from discharge) Disposition Disposition (needs filled in before D/C Order can be placed): Home, Self Care
--- NOTE | 2022-08-06 12:31 | OP.PCM_ITS ---
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 Reference VG 0108N, lot number [id number], expiry date 08/28/2026 Description of Surgical Findings:: Timeout and informed consent was obtained. At the bedside Dez test performed demonstrating adequate right wrist ulnar flow. The wrist was extended prepped with chlorhexidine under ultrasound guidance 1% lidocaine was used as a local anesthetic. 1 cc was used. 20-gauge Angiocath was inserted under ultrasound guidance into the right radial artery and advanced with Seldinger wire technique and then it was exchanged out for the arterial line kit Angiocath. OpSite dressing followed by Phill wrap was applied she tolerated the procedure well blood loss was minimal no apparent complication hand was viable at the complet ion a good waveform was obtained. Subsequently the patient was taken to the operating placed supine the table underwent general endotracheal ovation esthesia. Ancef 2 g were given intravenously. The left neck was sterilely prepped and draped. An oblique incision was made along the anterior border the sternocleidomastoid sharp dissection carried down through the subcutaneous tissue. Carotid bulb bifurcation of the internal and external carotid arteries were identified. The internal carotid artery was secured with a Dacron tape and Irineo tourniquet. If this loop was placed around the external carotid and a Vicryl Lay tied around the superior thyroid. A Lay tie of Dacron was placed at the common carotid. The patient received 7000 units of heparin. After adequate circulation time peripheral vascular clamps were placed on the internal and common and external carotid artery and 11 blade was used to make an arteriotomy which was extended with Lay scissors a very tight stenosis was identified the proximal internal carotid artery a #10 US CI style shunt was placed cephalad then proximally time to place the shunt was 3 minutes. An endarterectomy was performed with layer of the external elastic lamina the plaque was sharply transected proximally then carefully feathered distally in an inversion neck neurectomy of his form of the external carotid. Further debris was carefully removed with fine forceps. The intima was secured with a 7-0 Prolene tacking stitch. A Vascu-Guard bovine 0.8 x 8 cm patch was shaped to form and a patch angioplasty created with a running 6-0 Prolene. The vessel was irrigated. The shunt was removed and patch angioplasty completed. Initial flow was inserted from the external carotid common carotid and finally the internal carotid. Time for shunt removal was also 3 minutes. ACT's were used to monitor heparin anticoagulation. In aliquots at the completion of the procedure a total 30 mg of protamine was given. Surgicel was additionally used for hemostasis as the patient has been kept on her clopidogrel therapy including the day preoperatively. After significant amount of time and pressure was held the deep tissue was approximated up to 3-0 Vicryl and the skin edges proximal and running subcuticular 5-0 Vicryl. Periincisional anesthetized with 15 cc of 0.25% Marcaine Steri-Strips Telfa gauze and tape dressings applied. Sponge and instrument and needle counts were reported the surgeon to be correct. Specimens plaque. Drains none. Blood loss 200 cc. She was allowed to wake on the table and appeared to be neurologically intact and was taken to the recovery room. Alberto Choi M.D., F.A.C.S. Surgeon: Alberto Choi Type of Anesthesia: General and Local Anesthesiologist: Angie Sotelo
[2022-08-06] MEDS: Cefazolin 2 GM in 0.9% Normal Saline 100 ML IV (13:06)
[2022-08-06] MEDS: Heparin Injection (Vial) 5,000 UNIT/ML VIAL 5000 UNIT (13:25)
[2022-08-06] MEDS: Bupivacaine Mpf 0.5% 30 ML VIAL (15:14)
--- NOTE | 2022-08-06 19:18 | SUR.PHASEI ---
AT 1830, RIGHT RADIAL ARTERIAL CATHETER DISCONTINUED INTACT. DIRECT PRESSURE APPLIED WITH 4X4 GAUZE FOR 15 MINUTES. AFTER 15 MINUTES, ECCYMOSIS NOTED AT THE INSERTION SITE. NO ACTIVE BLEEDING OR HEMATOMA NOTED.
[2022-08-06] MEDS: Cefazolin 1 GM/50 ML BAG IV (20:34)
[2022-08-06] MEDS: Acetaminophen 325 MG Tablet PO (20:45)
[2022-08-06] MEDS: Atorvastatin Calcium 40 MG Tablet PO (20:47)
[2022-08-06] MEDS: amLODIPine 5 MG Tablet PO ×2 (20:47)
[2022-08-06] MEDS: Morphine 2 MG/ML Syringe IV (22:08)
[2022-08-07 03:20] VITALS: BP 158/78; PULSE 80; RESP 17; TEMP 36.6; O2SAT 94
--- NOTE | 2022-08-07 04:00 | NURSING ---
Patient ambulated one full lap around unit.
[2022-08-07] MEDS: Cefazolin 1 GM/50 ML BAG IV (05:09)
[2022-08-07 07:43] VITALS: BP 160/64; PULSE 77; RESP 16; TEMP 36.6; O2SAT 95
[2022-08-07 08:11] LABS: ACT Activated Clotting Time 119 sec (74-137)
[2022-08-07 08:12] LABS: ACT Activated Clotting Time 207 sec (74-137)
[2022-08-07 08:13] LABS: ACT Activated Clotting Time 245 sec (74-137)
[2022-08-07 08:45] VITALS: PULSE 77
[2022-08-07] MEDS: Losartan Potassium 100 MG Tablet PO (08:45)
[2022-08-07] MEDS: Pantoprazole Sodium 40 MG Tablet PO (08:45)
[2022-08-07] MEDS: Aspirin 81 MG TAB.CHEW PO (08:45)
[2022-08-07] MEDS: Metoprolol(XL)Succ 50 MG Tablet PO (08:45)
--- NOTE | 2022-08-07 10:40 | CASEMGMT ---
ZECHARIAH CANALES Assessment: Face to Face with pt for initial transition planning/care coordination assessment. ZECHARIAH CANALES introduced self and role at [facility], pt voices understanding and consents to assessment. Pt is A/O x4 and answers all questions appropriately at this time. Pt sitting on edge of bed in no distress with son and at bedside. Pt agreeable to assessment with visitors present. Care providers, pharmacy, and demographics verified/updated. Admitting Dx: Left carotid endarterectomy with bovine patch PCP:Stefania Specialists:Steph OR; Noé cardio Preferred Pharmacy: [facility] Insurance: [facility], MMO Prescription Benefit: yes LNOK: Alberto Schneider, ; Jerry Schneider, son Living Arrangements: Pt lives with in a two story home with 1 step to enter. Once in the home, pt has 13 steps to get to the main level with a rail. Pt reports she is I in ADL's and denies concerns at home. Transportation: Pt drives self and denies concerns with transportation. Pt will transport pt until she is able to drive again. DME/HHC/SNF: Pt has canes and a walker at home but does not use. Pt denies hx of HHC or SNF stays. Pt states no concerns with going home at time of dc. Pt was wanting rx to be filled at [facility] Retail, tc to pharmacy and provided insurance information. Elizabeth states they will call pt if [facility] pharmacy is not in network with pt insurance as sometimes [employer] is not. Made pt aware and she decided she just prefers to have meds sent to [facility] instead. Pt states no further concerns/needs. CM to follow. Advised pt to ask CM if any further question/concerns/needs arise, voices understanding. Pt Goal: Home Plan: Home
[2022-08-07 11:04] VITALS: BP 154/59; PULSE 71; RESP 16; TEMP 36.9; O2SAT 93
--- NOTE | 2022-08-07 11:46 | CASEMGMT ---
Social Work SW in to pt room to verify AD. Pt confirmed has a HCPOA and LW and named , Minor, as agent. SW informed these documents not on file with [facility] and copies can be brought in to be scanned to file if pt wishes. Pt and voiced understanding. AMAN Gautam
== END 2022-08-07 12:00 | disposition home or self-care (01) | DRG 39 ==
LOC: ACINP 10:32 → MS3 15:38
PROVIDERS: Admitting Provider Surgery; PCP Family Medicine; Referring Provider Surgery; Visit Provider Surgery
PROC: 03CL0ZZ Extirpation of Matter from Left Internal Carotid Artery, Open Approach (ICD-10-PCS; CPT 35301; principal; 2022-08-06 12:15)
DX: I65.23 Occlusion and stenosis of bilateral carotid arteries (principal); E11.22 Type 2 diabetes mellitus with diabetic chronic kidney disease; I12.9 Hypertensive chronic kidney disease with stage 1 through stage 4 chronic kidney disease, or unspecified chronic kidney disease; I25.10 Atherosclerotic heart disease of native coronary artery without angina pectoris; I35.0 Nonrheumatic aortic (valve) stenosis; I36.1 Nonrheumatic tricuspid (valve) insufficiency; K21.9 Gastro-esophageal reflux disease without esophagitis; N18.9 Chronic kidney disease, unspecified; E78.00 Pure hypercholesterolemia, unspecified; Z79.82 Long term (current) use of aspirin; Z79.02 Long term (current) use of antithrombotics/antiplatelets; Z79.899 Other long term (current) drug therapy; Z95.5 Presence of coronary angioplasty implant and graft
CPT/HCPCS: 36415; 80048; 85027; 85347; 88304; 88311; 93005; 93798; 99252; J7040; J7050; J7120; G0463; J2405

== ENCOUNTER → 2022-09-01 | Outpatient (CLI) | payer MEDICARE, OTHER, SELFPAY ==
[2022-06-23 08:23] VITALS: BMI 25.7
--- NOTE | 2022-09-01 12:49 | CDUL_ITS ---
Reason For Study: S/P left CEA Lt. Velocities/BP Prox CCA 63.6/9.7 cm/sec. Mid CCA 124.7/24.3 cm/sec. Dist CCA 115.6/7.9 cm/sec. Prox ICA 66.7/13.9 cm/sec. Mid ICA 83..9/22.5 cm/sec. Dist ICA 63/16.3 cm/sec. Lt. ICA/CCA = 0.73. Prox ECA 102.8/7.9 cm/sec. Lt. Vert. 32.3 cm/sec. Left Extracranial There is homogeneous, smooth atherosclerotic plaque noted in the left common carotid artery. There is homogeneous, smooth atherosclerotic plaque noted in the left internal carotid artery. There is intimal thickening but no significant atherosclerotic plaque noted in the left external carotid artery. Antegrade flow is noted in the left vertebral artery. VL/Carotid Unilateral Interpretation Summary Operative changes of the left carotid bulb and proximal internal carotid artery with less than 50% stenosis Less than 50% stenosis left external carotid artery Patent and antegrade left vertebral Ordering Physician: Namrata Willoughby Referring Physician: Feliciano Aguiar Performed By: Soraya Davis RVT
== END | disposition home or self-care (01) ==
LOC: CVS 12:48
PROVIDERS: PCP Family Medicine; Visit Provider Physician Assistant
DX: R09.89 Other specified symptoms and signs involving the circulatory and respiratory systems (principal)
CPT/HCPCS: 93882

== ENCOUNTER 2022-09-15 13:00 | Outpatient (RCR) | payer MEDICARE, OTHER, SELFPAY ==
[2022-06-23 08:23] VITALS: BMI 25.7
[2022-08-20 00:33] VITALS: BP 112/48; BP 160/58
--- NOTE | 2022-08-21 10:16 | PCM.CR.ITP ---
Diagnosis Exercise - 60-day Assessment - Visit Date of Eval: 08/21/22 Session #:: 24 Comments:: Patient was out for surgery procedure Nutrition - Initial Assessment Nutrition - 30-Day Assessment Nutrition - 60-Day Assessment - Program Goals Nutrition Program Goals: LDL <100 optimal. 100 - 129 Near optimal. 130 - 159 Borderline High. 160 - 189 High. Total Cholesterol <200 desirable. 200 - 239 Borderline High. >/= 240 High. HDL < 40 Low >/=60 High. Triglycerides <150 desirable. <199 optimal. VlDL 5 - 40. HgbA1C <7%. BMI <25 Patient has diagnosis of Hyperlipidemia (ICD E78)?: Yes - Visit Date of Assessment:: 08/21/22 Session #:: 24 Nutrition - 90-Day Assessment Nutrition - Final Assessment Core - Initial Assessment Core - 30-Day Assessment Core - 60-Day Assessment - Visit Date of Eval: 08/21/22 Session #:: 24 Core - 90 Day Assessment Core - Final Assessment Psychosocial - Initial Assess Psychosocial - 30-Day Assess Psychosocial - 60-Day Assess - VIsit Date of Eval: 08/21/22 Session #:: 24 Psychosocial - 90-Day Assess Psychosocial - Final Assessmen Nutrition Survey
== END 2022-09-16 23:59 ==
LOC: CR 13:00
PROVIDERS: PCP Family Medicine; Referring Provider Internal Medicine Cardiovascular Disease; Visit Provider Internal Medicine Cardiovascular Disease
DX: I25.10 Atherosclerotic heart disease of native coronary artery without angina pectoris (principal); Z95.5 Presence of coronary angioplasty implant and graft
CPT/HCPCS: 93798

== ENCOUNTER 2022-10-08 13:00 | Outpatient (RCR) | payer MEDICARE, OTHER, SELFPAY ==
[2022-06-23 08:23] VITALS: BMI 25.7
[2022-09-17 00:23] VITALS: BP 112/48; BP 160/58
--- NOTE | 2022-09-17 13:16 | PCM.CR.ITP ---
Diagnosis Exercise - 60-day Assessment - Visit Date of Eval: 09/17/22 Session #:: 26 Comments:: Patient resumed cardiac rehab on 09/15/2022 following carotid surgery - Physician Prescribed Exercise Modalities: Treadmill, Airdyne, NuStep Frequency: 3x/week for 12 weeks [36 sessions] Intensity: 60-80% of age predicted maximum heart rate reserve Current METSs:: 4.0 Target Heart Rate:: 93-120 Current RPE:: 11-12 Maximum Excercise HR:: 99 Resting Blood Pressure: 132/58 Maximum Exercise Blood Pressure: 150/50 EKG Type: NSR to sinus tach with short burst of PAT - Outcomes & Goals Goals:: Verbalizes understanding of THR, RPE & goal METS by session 6, Documents in home exercise log/reports 30 min aerobic 5 day/wk by DC, Demonstrates accurate pulse taking by DC - Intervention & Plan Exercise Program Goals: Instruct on personal THR & RPE, Instruct on MET level & personal MET goal, Show patient to take own pulse /validate performance until accurate, Instruct on home exercise - 30-day Reassessments 30 day Reassessments:: Met - Physical Activity Home Exercise Physical Activity - Home Exercise: Safe Exercise, Warm-up, Self-monitoring, Cool-Down, Home Exercise > 30 min Daily, Sitting Time <3 hours/daily - Outcomes & Goals Outcomes/Goals: Demonstrates correct Warm-up/exercise Cool-Down (S3) if = 2.5 METs, Verbalizes symptoms of exercise intolerance by Session 3 (S3), Demonstrate safe equipment use (S3) & follows exercise prescrition (6) - Intervention & Plan Plan/Intervention: Instruct warm-up & cool-down if exercising at > 2 METs, Instruct on symptoms of exercise intolerance & actions to take, Instruct & monitor on saf, Assess intial functional capacity & safety risk - 30-day Reassessments 30 day Reassessments:: Met Nutrition - Initial Assessment Nutrition - 30-Day Assessment Nutrition - 60-Day Assessment - Program Goals Nutrition Program Goals: LDL <100 optimal. 100 - 129 Near optimal. 130 - 159 Borderline High. 160 - 189 High. Total Cholesterol <200 desirable. 200 - 239 Borderline High. >/= 240 High. HDL < 40 Low >/=60 High. Triglycerides <150 desirable. <199 optimal. VlDL 5 - 40. HgbA1C <7%. BMI <25 Patient has diagnosis of Hyperlipidemia (ICD E78)?: Yes - Visit Date of Assessment:: 09/17/22 Session #:: 26 - Cholesterol/Lipids (Other Core Measures) Determine presence & major risk factors that modify LDL goal: Hypertension or hypertensive medication, Family history of premature CHD in Male < 55 years: female <65 yearsFa, Age men > 45 years; women >/= 55 years Outcomes/Goals: Pt IDs own risk factors & lifestyle modifications by Session 10, Verbalizes symptoms of angina & response by session 3., Pt independently manages Intervention/Plan: Instruct on personal lipid levels & lipid goals/NCEP guidelines, Instruct on cholesterol Referral to dietitian:: No - Patient's insurance does not cover service, and patient declined. 30-day Reassessments:: Progressing - Diabetes (Other Core Measures) Diabetes Type: Not Applicable - Weight Mgt (Other Care) Height: 5 ft 3 in Weight:: 145 lb 8 oz BMI: 25.7 BMI (Report if calculated above): 26.7 Diagnosis Overweight/Obesity BMI> 30% ICD-10 E66: No Diagnosis High BMI/Morbid Obesity BMI> 35% ICD-10 Z68: No Outcomes/Goals: Pt sets, maintains & shows weight loss goal & trend during rehab Intervention/Plan: Instruct on ideal BMI & set weight loss goal w/patient - Healthy Eating Habits Will attend diet classes:: Yes Outcomes/Goals:: Consume diet rich in vegs,fruits,whole grain/high fiber,fish,lean meat, Limit sat/trans fats,cholesterol & added salts & sugars Intervention/Plan:: Assess current eating habits 30-day Reassessments:: Met - Education Gave educational materials for:: Healthy eating Nutrition - 90-Day Assessment Nutrition - Final Assessment Core - Initial Assessment Core - 30-Day Assessment Core - 60-Day Assessment - Visit Date of Eval: 09/17/22 Session #:: 25 - Medication Compliance Preventative Medication(s):: Aspirin, Clopidogrel/P2Y12 inhibit, Statin/lipid, Beta franklyn H/O mental health issues: depression, anxiety, or addiction?: No Doesn?t believe in the benefits of treatment?: No Believes medications are unnecessary or harmful?: No Has a concern about medication side effects?: No Expresses concern over the cost of medications?: No Outcomes/Goals: Verbalizes medications,desired effect & common side effects @ DC, Pt self-reports following medication regimen, Keeps card in wallet w/medications listed by DC Interventions/plans: Instruct on medication effects & side effects, Review medication list w/patient every two weeks, Instruct importance of taking meds as ordered & assist problem solving 30-day Reassessments:: Met - Tobacco Use Tobacco Use: Non-smoker - Hypertension Resting Blood Pressure:: 132/58 [place] [employer] Hypertension Guidelines: [place] [employer] Hypertension Guidelines. Normal BP Less than 120/80. Elevated BP 120/80. Hypertension Stage 1: BP 130-139/80-89. Hypertesnion Stage 2: BP 140 or higher/90 or higher. Hypertension Crisis: BP higher than 180/120 Peak Exercise Blood Pressure:: 150/50 Outcomes/Goals: Able to verbalize/achieve optimal blood pressure <130/80, Incorporates diet changes & exercise for blood pressure control by DC Interventions/plan: Instruct on optimal blood pressure, hypertension & medications, Instruct on effects of sodium, alcohol, stress, exercise &hypertension 30 day Reassessments:: Met - Tobacco Cessation Referral Smoking Cessation Referral:: No Individual Education/Counseling:: No Education Schedule Given:: Yes Core - 90 Day Assessment Core - Final Assessment Psychosocial - Initial Assess Psychosocial - 30-Day Assess Psychosocial - 60-Day Assess - VIsit Date of Eval: 09/17/22 Session #:: 26 Not Applicable: Yes History of previous Mental disease:: No - Psychosocial Test Tool Used:: PHQ-9 Questionnaire phq-9 Severity: Severity. 1-4 Minimal Depression. 5-9 Mild Depression. 10-14 Moderate Depression. 15-19 Moderately Sever Depression. 20-27 Severe Depression. Rule: - Referral to Behavioral Health PS - Interventions: Yes Attend Stress Management Classes, No Referral to Behavioral Health if PHQ-9 score >9:, No Referral to [facility], No Referral to Physician if PHQ-9 if score is 5-9: - Outcomes/Goals: See list Psychosocial Outcomes/Goals:: ID's personal stressors & 2 strategies to manage stress by discharge - Intervention/Plan: See List Interventions/Plan:: Assess stressors,coping strategies & signs of derpression on admission, Instruct/assist pt to develop coping & personal stress Mgt strategies, Instruct patient to recognize signs & symptoms of depression, Instruct patient to recog - 30-day Reassessments: 30 day Reassessments:: Met Psychosocial - 90-Day Assess Psychosocial - Final Assessmen Patient Health Questionnaire 60-Day Re-eval Assessment 1. Little interest or pleasure in doing things: Not at all 2. Feeling down, depressed, or hopeless: Not at all 3. Trouble falling or staying asleep, or sleeping too much: Not at all 4. Feeling tired or having little energy: Not at all 5. Poor appetite or overeating: Not at all 6. Feeling bad about yourself -- or that you are a failure or have let yourself or your family down: Not at all 7. Trouble concentrating on things, such as reading the newspaper or watching television: Not at all 8. Moving or speaking so slowly that other people could have noticed. Or the opposite - being so fidgety or restless that you have been moving around a lot more than usual: Not at all 9. Thoughts that you would be better off , or of hurting yourself in some way: Not at all How difficult have these problems made it for you to do your work, take care of things at home, or get along with other people?: Not difficult at all Total Score: 0 Self-Efficacy 60-Day Re-eval Assessment We would like to know how confident you are in doing certain activities. Please select your confidence level for:: Select your confidence level for the following using the scale 1-10 where 1 is not at all confident and 10 is totally confident. Your score is the average of all 6 responses. Fatigue: How confident are you that you can keep the fatigue caused by your disease from interfering with the things you want to do? Select Number: 10 Physical Discomfort or Pain: How confident are you that you can keep the physical discomfort or pain of your disease from interfering with the things you want to do? Select Number: 10 Emotional Distress: How confident are you that you can keep the emotional distress caused by your disease from interfering with the things you want to do? Select Number: 10 Other Symptoms or Health Problems: How confident are you that you can keep other symptoms or health problems from interfering with the things you want to do? Select Number: 10 Different Tasks and Activities: How confident are you that you can do the different tasks and activities needed to manage your health condition so as to reduce your need to see a doctor? Select Number: 10 Medication: How confident are you that you can do things other than just taking medication to reduce how much your illness affects your everyday life? Select Number: 10 Total Score:: 10 Nutrition Survey
[2022-09-17 13:22] VITALS: BP 132/58; BP 150/50; BMI 25.7; BMI 26.7
== END 2022-10-17 23:59 ==
LOC: CR 13:00
PROVIDERS: PCP Family Medicine; Referring Provider Internal Medicine Cardiovascular Disease; Visit Provider Internal Medicine Cardiovascular Disease
DX: I25.10 Atherosclerotic heart disease of native coronary artery without angina pectoris (principal); Z95.5 Presence of coronary angioplasty implant and graft
CPT/HCPCS: 93798

== ENCOUNTER → 2022-11-11 | Outpatient (CLI) | payer MEDICARE, OTHER, SELFPAY ==
[2022-09-17 13:22] VITALS: BMI 25.7
--- NOTE | 2022-11-11 12:06 | BI_ITS ---
MAMMOGRAPHY - BILATERAL SCREENING REASON FOR EXAM: Female, 77 years old. Routine annual screening examination. PERTINENT HISTORY: Non-contributory. TECHNIQUE: Digital bilateral breast anil (3D mammographic acquisition) in the CC and MLO projections. 2-D mediolateral oblique (MLO) and craniocaudad (CC) views of both breasts were obtained. CAD: Full Field Digital Mammography with Computer Added Detection was performed. COMPARISON: Comparison is made with prior study dated June 27, 2021. FINDINGS: Breast Composition: There are scattered areas of fibroglandular density. There are no dominant masses or suspicious calcifications. Stable 5.3 mm x 5 mm well-defined nodule in the upper slightly medial aspect of the right breast. Prior sonogram demonstrated this to be a cyst. Stable bilateral secretory calcifications. No other significant abnormalities are identified. There has been no significant change since the prior study. BI/SCRN MAMM (CAD)W/ANIL BILAT IMPRESSION: Stable bilateral screening mammogram. Yearly follow-up mammogram recommended. (A) ASSESSMENT CATEGORY: BIRADS Category 2: Benign. A letter regarding these results will be sent to the patient by the facility within 30 days. Approximately 10% of breast cancers are not detected by mammography. A normal mammogram should not delay biopsy of a clinically suspicious abnormality. [id number] Electronically Signed: Jovan Reddy MD at 12:59 EDT ,
== END | disposition home or self-care (01) ==
LOC: OPBI 12:04
PROVIDERS: PCP Family Medicine; Referring Provider Family Medicine; Visit Provider Family Medicine
DX: Z12.31 Encounter for screening mammogram for malignant neoplasm of breast (principal)
CPT/HCPCS: 77063; 77067

== ENCOUNTER → 2023-05-08 | Outpatient (CLI) | payer MEDICARE, OTHER, SELFPAY ==
[2022-09-17 13:22] VITALS: BMI 25.7
--- NOTE | 2023-05-08 13:03 | ECHOCS_ITS ---
Reason For Study: Valvular Disease Procedure This was a 2D Doppler, Color Flow transthoracic echocardiogram. The study was technically difficult. Contrast injection was performed. Exam performed in department. Left Ventricle Normal LV size. Left ventricular systolic function is normal. The estimated ejection fraction is 60 %. No regional wall motion abnormalities noted. Right Ventricle Normal RV size. Normal systolic function. Atria Normal left atrium. Normal right atrium. Mitral Valve Bileaflet diffuse mitral valve thickening. Mild (1+) eccentric mitral valve insufficiency. Tricuspid Valve Normal tricuspid valve. Mild (1+) tricuspid valve insufficiency. Pulmonary artery systolic pressure is 35 mmHg. Aortic Valve Trisinus/trileaflet aortic valve. Moderate focal aortic valve calcification. Mild (1+) aortic valve insufficiency. Pulmonic Valve Normal pulmonic valve. Great Vessels Normal aortic root. The pulmonary artery is normal size. Normal inferior vena cava. Pericardium/Pleural No pericardial effusion. Medication 22 gauge I.V. with prn adaptor inserted into right arm. Diluted definity 2ml given slow IV push to enhance endocardial definition. MMode/2D Measurements & Calculations LVIDd: 3.4 cm IVSd: 0.92 cm LVOT diam: 2.0 cm LVIDs: 2.3 cm LVPWd: 0.94 cm RVDd: 3.5 cm FS: 32.4 % LVOT area: 3.2 cm2 Ao root diam: 3.0 cm LAV(MOD-bp): 48.7 ml LA A4 area: 17.5 cm2 LA dimension: 3.9 cm LAV(MOD-bp) Indexed: 29.0 ml/m2 LAV(MOD-sp2): 46.5 ml LAV(MOD-sp4): 48.7 ml TAPSE: 1.8 cm RA A4 area: 11.0 cm2 Time Measurements MV dec time: 0.19 sec Doppler Measurements & Calculations MV E max jarett: 69.2 cm/sec Lat Peak E' Jarett: 7.8 cm/sec Med Peak E' Jarett: 7.9 cm/sec MV A max jarett: 80.3 cm/sec E/E' lat: 8.9 E/E' med: 8.8 MV E/A: 0.86 MV V2 max: 85.7 cm/sec MV P1/2t max jarett: 84.2 cm/sec Ao V2 max: 289.3 cm/sec MV max P.9 mmHg MV P1/2t: 69.6 msec Ao max P.5 mmHg MV V2 mean: 45.0 cm/sec MV dec slope: 354.1 cm/sec2 Ao V2 mean: 196.2 cm/sec MV mean P.98 mmHg Ao mean P.0 mmHg MV V2 VTI: 30.0 cm MVA(P1/2t): 3.2 cm2 Ao V2 VTI: 69.0 cm MVA(VTI): 2.4 cm2 AV (velocity ratio): 0.32 YOLI(I,D): 1.0 cm2 YOLI(V,D): 1.0 cm2 AI max jarett: 417.8 cm/sec LV V1 max: 89.4 cm/sec SV(LVOT): 70.7 ml AI max P.9 mmHg LV V1 max P.2 mmHg AI dec slope: 258.1 cm/sec2 LV V1 mean P.9 mmHg AI P1/2t: 474.1 msec LV V1 mean: 65.3 cm/sec LV V1 VTI: 21.8 cm PA V2 max: 68.6 cm/sec TR max jarett: 277.6 cm/sec TR max P.8 mmHg ECHO/Echo Complete W/ Contrast Interpretation Summary Normal LV size. Left ventricular systolic function is normal. The estimated ejection fraction is 60 %. Mild (1+) eccentric mitral valve insufficiency. Mild (1+) aortic valve insufficiency. Contrast injection was performed. Ordering Physician: Keyanna Melara Referring Physician: Keyanna Melara Performed By: Adriel Cota RCS
== END | disposition home or self-care (01) ==
LOC: CVS 13:02
PROVIDERS: PCP Family Medicine; Referring Provider Nurse Practitioner Gerontology; Visit Provider Nurse Practitioner Gerontology
DX: I35.0 Nonrheumatic aortic (valve) stenosis (principal)
CPT/HCPCS: 93306; Q9957; A4216; C8929

== ENCOUNTER → 2023-05-28 | Outpatient (CLI) | payer MEDICARE, OTHER, SELFPAY ==
[2022-09-17 13:22] VITALS: BMI 25.7
--- NOTE | 2023-05-28 12:55 | CDU_ITS ---
Reason For Study: Carotid stenosis Rt. Velocities/BP Lt. Velocities/BP Prox CCA 81.5/12.6 cm/sec. Prox CCA 66.3/12.4 cm/sec. Mid CCA 79.6/20.1 cm/sec. Mid CCA 67.4/14.6 cm/sec. Dist CCA 74/18.2 cm/sec. Dist CCA 154/11.5 cm/sec. Prox ICA 231.5/83.7 cm/sec. Prox ICA 93.7/24.3 cm/sec. Mid ICA 192.6/68.2 cm/sec. Mid ICA 82.7/26.1 cm/sec. Dist ICA 88.5/22.6 cm/sec. Dist ICA 75.3/22.5 cm/sec. Rt. ICA/CCA = 2.90. Lt. ICA/CCA = 1.39. Prox ECA 94.8 cm/sec. Prox ECA 110.1/2.4 cm/sec. Rt. Vert. 54.2/13.5 cm/sec. Lt. Vert. 27.9/2.2 cm/sec. Right Extracranial There is homogeneous, smooth atherosclerotic plaque noted in the right common carotid artery. There is heterogeneous, irregular atherosclerotic plaque noted in the right internal carotid artery. The atherosclerotic plaque causes acoustic shadowing. There is homogeneous, smooth atherosclerotic plaque noted in the right external carotid artery. Antegrade flow is noted in the right vertebral artery. Left Extracranial There is homogeneous, smooth atherosclerotic plaque noted in the left common carotid artery. There is homogeneous, smooth atherosclerotic plaque noted in the left internal carotid artery. There is homogeneous, smooth atherosclerotic plaque noted in the left external carotid artery. Antegrade flow is noted in the left vertebral artery. Procedure Carotid Duplex [id number]. This is a Carotid Duplex examination using B-mode, color flow and specral Doppler. Exam performed in department. VL/Carotid Duplex Ultrasound Interpretation Summary Irregular calcific plaque with shadowing at the proximal internal carotid arter y with greater than 70% stenosis Less than 50% stenosis right external carotid artery Postoperative changes of the left carotid bulb and proximal internal carotid ar [place] with less than 50% stenosis Less than 50% stenosis left external carotid artery Patent and antegrade vertebral arteries bilaterally There is just minimal progression of disease involving the right internal carot id artery from the previous exam of July 02, 2022 and there are stable postoperative changes o n the left. Ordering Physician: Alberto Choi Referring Physician: Feliciano Aguiar Performed By: Soraya Davis RVT
== END | disposition home or self-care (01) ==
LOC: CVS 12:55
PROVIDERS: PCP Family Medicine; Referring Provider Surgery; Visit Provider Surgery
DX: R09.89 Other specified symptoms and signs involving the circulatory and respiratory systems (principal)
CPT/HCPCS: 93880

== ENCOUNTER → 2023-06-25 | Outpatient (CLI) | payer MEDICARE, OTHER, SELFPAY ==
[2022-09-17 13:22] VITALS: BMI 25.7
--- NOTE | 2023-06-25 08:36 | AAAS_ITS ---
Reason For Study: AAA screening Aorta Measurements Aorta Doppler Measurements Proximal aorta measures1.21 x 1.18cm. in cross- Peak systolic flow velocities within the proximal sectional axis. aorta measure 79.6 cm/sec. Proximal aorta measures1.32cm. in longitudinal Peak systolic flow velocities within the mid aorta axis. measure 126.7 cm/sec. Mid aorta measures1.36 x 1.4cm. in cross-sectionalPeak systolic flow velocities within the distal axis. aorta measure 70.5 cm/sec. Mid aorta measures1.32cm. in longitudinal axis. Distal aorta measures1.07 x 1.06cm. in cross- sectional axis. Distal aorta measures1.03cm. in longitudinal axis. Left Iliac Artery Left iliac artery measures .93 x .91 cm. in the cross-sectional axis. Left iliac artery measures .8 cm. in the longitudinal axis. Peak systolic velocity in the left iliac artery measures 99.5 cm/sec. Right Iliac Artery Right iliac artery measures .8 x .79 cm. in the cross-sectional axis. Right iliac artery measures .81 cm. in the longitudinal axis. Peak systolic velocity in the right iliac artery measures 117.6 cm/sec. Procedure Aorta IVC Iliac vasculature or bypass grafts 69061. The exam was diagnostic. Exam performed in department. VL/AAA Screening Interpretation Summary Maximal aortic dimensions in the mid abdominal aorta at 1.36 x 1.4 cm which is normal. Slightly increased flow velocity in the mid abdominal aorta not likely clinically signif icant. Normal left common iliac artery at 0.93 x 0.91 cm in diameter Normal right common iliac artery at 0.8 x 0.79 cm in diameter Ordering Physician: Alberto Choi Performed By: Skyler Acosta RVT
== END | disposition home or self-care (01) ==
LOC: CVS 08:35
PROVIDERS: PCP Family Medicine; Referring Provider Surgery; Visit Provider Surgery
DX: Z13.6 Encounter for screening for cardiovascular disorders (principal)
CPT/HCPCS: 76706

== ENCOUNTER → 2023-07-07 | Outpatient (CLI) | payer MEDICARE, OTHER, SELFPAY ==
[2022-09-17 13:22] VITALS: BMI 25.7
[2023-07-07 10:37] LABS: Mucous, Urine 0 SEEN /hpf (<or=2+)
[2023-07-07 11:15] LABS: Absolute Neutrophil Count 2.3 X10^3/uL (2.0-7.7); Basophil# 0.08 X10^3/uL; Basophil% 1.9 % (0-1); Eosinophil# 0.15 X10^3/uL; Eosinophils% 3.6 % (0-5); Hematocrit 39.2 % (37-47); Hemoglobin 12.3 g/dL (12.0-15.0); Lymphocyte % 26.8 % (19-41); Mean Corp Hgb Conc 31.4 g/dL (32-36); Mean Corpuscular Hgb 28.7 pg (27.0-32.0); Mean Corpuscular Volume 91.4 fL (81-99); Mean Platelet Vol. 11.3 fl (6.2-12.0); Monocyte# 0.44 X10^3/uL; Monocyte% 10.7 % (0-10); NRBC Flagged by Analyzer 0 % (0-5); Neutrophil # 2.33 X10^3/uL (2.7-7.7); Neutrophil % 56.8 % (47-70); Platelet Count 165 K/mm3 (150-450); RBC Distribution Width CV 13.5 % (11.6-14.6); RBC Distribution Width SD 45.8 fl (35.1-43.9); Red Blood Count 4.29 M/mm3 (4.2-5.4); White Blood Count 4.1 K/mm3 (4.4-11.0)
[2023-07-07 11:28] LABS: Protein, Urine (Random) 26.2 mg/dL (<11.9); Protein:Creat Ratio 379 mg/g CRE (0-200)
[2023-07-07 11:34] LABS: Color, Urine Yellow (Yellow); Glucose, Dipstick Normal (Normal); Ketone-Dipstick Negative (Negative); Leukocyte Esterase-Dipstick 500 /ul (Negative); Nitrite-Dipstick Negative (Negative); Occult Blood-Urine 10 /ul (Negative); Protein-Dipstick 30 mg/dl (Negative); Specific Gravity, Urine 1.015 (1.002-1.030); Urine Bilirubin Dipstick Negative (Negative); Urine Clarity Sl. Cloudy (Clear); Urine Urobilinogen Normal (Normal)
[2023-07-07 11:37] LABS: PTHIN 66.5 pg/mL (18.4-80.1)
[2023-07-07 11:40] LABS: Vitamin D,25 Hydroxy 60.2 ng/mL
[2023-07-07 11:46] LABS: Hemoglobin A1c 6.2 % (3.8-5.6)
[2023-07-07 11:47] LABS: ALB/GLOB Ratio 0.9 RATIO (0.9-2.4); AST(SGOT) 16 U/L (15-37); Alanine Aminotransfer ALT/SGPT 19 U/L (13-56); Albumin, Serum 3.4 g/dL (3.2-5.0); Alkaline Phosphatase 68 U/L (45-117); Anion Gap 2 (5-15); BUN 20 mg/dL (7-18); BUN/Creat Ratio 18.2 RATIO (10-20); Calcium,Total 9.1 mg/dL (8.5-10.1); Chloride 108 mmol/L (98-107); Cholesterol 128 mg/dL (200); EST Glomerular Filtration Rate 51 mL/min (>60); Est Glom Filt Rate - Afr Amer 62 mL/min (>60); Globulin 3.8 g/dL (2.2-4.2); Glucose 107 mg/dL (74-106); High Density Lipoprotein 50 mg/dL; Phosphorus 3.9 mg/dL (2.5-4.9); Potassium 3.9 mmol/L (3.5-5.1); Protein, Total 7.2 g/dL (6.4-8.2); Sodium Level 139 mmol/L (136-145); Thyroid Stim Hormone (TSH) 3.81 uIU/mL (0.358-3.74); Triglycerides 102 mg/dL; Very Low Density Lipoprotein 20 mg/dL (5-40)
[2023-07-07 11:49] LABS: Red Blood Cells-Urine 0-5 SEEN /hpf (0-5)
[2023-07-07 11:50] LABS: Bacteria 1+ /hpf (None Seen); Squamous Epithelial Cells - UA 10-25 SEEN /hpf (5-10); Transitional Epithelial - Ur 0-5 SEEN /hpf (0-5); White Blood Cells 25-50 SEEN /hpf (0-5)
== END | disposition home or self-care (01) ==
LOC: LAB 10:30
PROVIDERS: PCP Family Medicine; Referring Provider Family Medicine; Visit Provider Family Medicine
DX: E55.9 Vitamin D deficiency, unspecified (principal); N18.30 Chronic kidney disease, stage 3 unspecified; I12.9 Hypertensive chronic kidney disease with stage 1 through stage 4 chronic kidney disease, or unspecified chronic kidney disease; R73.09 Other abnormal glucose
CPT/HCPCS: 36415; 80053; 80061; 81001; 82306; 82570; 83036; 83970; 84100; 84156; 84443; 85025

== ENCOUNTER → 2023-09-30 | Outpatient (CLI) | payer MEDICARE, OTHER, SELFPAY ==
[2022-09-17 13:22] VITALS: BMI 25.7
[2023-09-30 11:12] LABS: Mucous, Urine 0 SEEN /hpf (<or=2+)
[2023-09-30 12:19] LABS: Absolute Lymphocyte Count 0.88 X10^3/uL (0.83-4.51); Absolute Neutrophil Count 2.7 X10^3/uL (2.0-7.7); Basophil# 0.04 X10^3/uL; Eosinophil# 0.17 X10^3/uL; Eosinophils% 4.1 % (0-5); Hematocrit 36.8 % (37-47); Hemoglobin 12.2 g/dL (12.0-15.0); Lymphocyte # 0.88 X10^3/ul (0.83-4.51); Lymphocyte % 21.2 % (19-41); Mean Corp Hgb Conc 33.2 g/dL (32-36); Mean Corpuscular Volume 87.6 fL (81-99); Mean Platelet Vol. 11.1 fl (6.2-12.0); Monocyte# 0.38 X10^3/uL; Monocyte% 9.2 % (0-10); NRBC Flagged by Analyzer 0 % (0-5); Neutrophil # 2.67 X10^3/uL (2.7-7.7); Neutrophil % 64.3 % (47-70); Platelet Count 182 K/mm3 (150-450); RBC Distribution Width CV 13.6 % (11.6-14.6); RBC Distribution Width SD 43.8 fl (35.1-43.9); White Blood Count 4.2 K/mm3 (4.4-11.0)
[2023-09-30 12:33] LABS: Color, Urine Yellow (Yellow); Glucose, Dipstick Normal (Normal); Ketone-Dipstick Negative (Negative); Leukocyte Esterase-Dipstick 500 /ul (Negative); Nitrite-Dipstick Negative (Negative); Occult Blood-Urine 10 /ul (Negative); Protein-Dipstick 15 mg/dl (Negative); Specific Gravity, Urine 1.015 (1.002-1.030); Urine Bilirubin Dipstick Negative (Negative); Urine Clarity Sl. Cloudy (Clear); Urine Urobilinogen Normal (Normal); Urine pH 6.5 (5.0 - 8.0)
[2023-09-30 12:42] LABS: Bacteria 1+ /hpf (None Seen); Red Blood Cells-Urine 0-5 SEEN /hpf (0-5); Squamous Epithelial Cells - UA 5-10 SEEN /hpf (5-10); Transitional Epithelial - Ur 0-5 SEEN /hpf (0-5); White Blood Cells 25-50 SEEN /hpf (0-5)
[2023-09-30 13:07] LABS: Protein, Urine (Random) 20.1 mg/dL (<11.9); Protein:Creat Ratio 229 mg/g CRE (0-200)
[2023-09-30 13:08] LABS: Hemoglobin A1c 6.3 % (3.8-5.6)
[2023-09-30 13:11] LABS: PTHIN 42.4 pg/mL (18.4-80.1)
[2023-09-30 13:14] LABS: Vitamin D,25 Hydroxy 47.6 ng/mL
[2023-09-30 13:26] LABS: ALB/GLOB Ratio 1.1 RATIO (0.9-2.4); AST(SGOT) 22 U/L (15-37); Alanine Aminotransfer ALT/SGPT 20 U/L (13-56); Albumin, Serum 3.8 g/dL (3.2-5.0); Alkaline Phosphatase 74 U/L (45-117); Anion Gap 7 (5-15); BUN 25 mg/dL (7-18); BUN/Creat Ratio 20.7 RATIO (10-20); Calcium,Total 9.2 mg/dL (8.5-10.1); Chloride 106 mmol/L (98-107); Cholesterol 136 mg/dL (200); Creatinine, Serum 1.21 mg/dL (0.55-1.02); EST Glomerular Filtration Rate 46 mL/min (>60); Est Glom Filt Rate - Afr Amer 55 mL/min (>60); Globulin 3.4 g/dL (2.2-4.2); Glucose 105 mg/dL (74-106); High Density Lipoprotein 48 mg/dL; Phosphorus 3.6 mg/dL (2.5-4.9); Potassium 3.6 mmol/L (3.5-5.1); Protein, Total 7.2 g/dL (6.4-8.2); Sodium Level 140 mmol/L (136-145); Triglycerides 100 mg/dL; Very Low Density Lipoprotein 20 mg/dL (5-40)
--- OUTSIDE RECORDS SUMMARY | 2023-09-30 19:03 | XMS RPT_ITS | CCD ---
Author Name Unknown Address [address] [place] [address] Organization [facility] Results Test Name Value Interpretation Reference Range Facil ity Summary Purpose Family History No Family History Records FoundNo Family History Records Found Advance Directives No Advanced Directives Records FoundNo Advanced Directives Records Found Additional Source Comments INFORMATION SOURCE (unrecogn ized section and content) DATE CREATED AUTHOR AUTHOR'S ORGANIZ ATION 08/13/2022 [facility] FOR RECORDS PERTAINING TO PATIENTS WHO ARE OR HAVE BEEN ENROLLED IN A CHEMICAL DEPENDENCY/SUBSTANCEABUSE PROGRAM, SOME INFORMATION MAY BE OMITTED. This clinical summary was aggregated from multiple sources. Caution should be exercised in using it in the provision of clinical care. This summary normalizes information from multiple sources, and as a consequence, information in this document may materially change the coding, format and clinical context of patient data. In addition, data may be omitted in some cases. CLINICAL DECISIONS SHOULD BE BASED ON THE PRIMARY CLINICAL RECORDS. [email or web address] provides no warranty or guarantee of the accuracy or completeness of information in this document.
== END | disposition home or self-care (01) ==
LOC: MFPLAB 11:08
PROVIDERS: PCP Family Medicine; Visit Provider Family Medicine
DX: E55.9 Vitamin D deficiency, unspecified (principal); N18.30 Chronic kidney disease, stage 3 unspecified; R73.09 Other abnormal glucose; I25.10 Atherosclerotic heart disease of native coronary artery without angina pectoris
CPT/HCPCS: 36415; 80053; 80061; 81001; 82306; 82570; 83036; 83970; 84100; 84156; 85025

== ENCOUNTER → 2024-05-20 | Outpatient (CLI) | payer MEDICARE, OTHER, SELFPAY ==
[2022-09-17 13:22] VITALS: BMI 25.7
--- NOTE | 2024-05-20 13:39 | CDU_ITS ---
Reason For Study: Carotid stenosis Rt. Velocities/BP Lt. Velocities/BP Prox CCA 88.3/16.8 cm/sec. Prox CCA 61.9/11.3 cm/sec. Mid CCA 86.1/17.9 cm/sec. Mid CCA 59.7/9.1 cm/sec. Dist CCA 83.9/17.9 cm/sec. Dist CCA 105.8/13.5 cm/sec. Prox ICA 236.6/63 cm/sec. Prox ICA 90/17.6 cm/sec. Mid ICA 200.4/52.6 cm/sec. Mid ICA 77.7/18.8 cm/sec. Dist ICA 102.8/26.1 cm/sec. Dist ICA 72.8/18.8 cm/sec. Rt. ICA/CCA = 2.75. Lt. ICA/CCA = 1.51. Prox ECA 82.8 cm/sec. Prox ECA 107.2/6.5 cm/sec. Rt. Vert. 59.3/13.9 cm/sec. Lt. Vert. 36 cm/sec. Right Extracranial There is homogeneous, smooth atherosclerotic plaque noted in the right common carotid artery. There is heterogeneous, irregular atherosclerotic plaque noted in the right internal carotid artery. The atherosclerotic plaque causes acoustic shadowing. There is heterogeneous, irregular atherosclerotic plaque noted in the right external carotid artery. Antegrade flow is noted in the right vertebral artery. Left Extracranial There is homogeneous, smooth atherosclerotic plaque noted in the left common carotid artery. There is homogeneous, smooth atherosclerotic plaque noted in the left internal carotid artery. There is homogeneous, smooth atherosclerotic plaque noted in the left external carotid artery. Antegrade flow is noted in the left vertebral artery. Procedure Carotid Duplex [id number]. This is a Carotid Duplex examination using B-mode, color flow and specral Doppler. Exam performed in department. VL/Carotid Duplex Ultrasound Interpretation Summary Severe (>70%) stenosis right extracranial internal carotid. Mild (<50%) stenosis left extracranial internal carotid. Patent and antegrade vertebrals bilaterally. Ordering Physician: Troy Ortega Referring Physician: Joni Barcenas Performed By: Soraya Davis RVT
== END | disposition home or self-care (01) ==
LOC: CVS 13:39
PROVIDERS: PCP Family Medicine; Referring Provider Surgery Trauma Surgery; Visit Provider Surgery Trauma Surgery
DX: I65.22 Occlusion and stenosis of left carotid artery (principal)
CPT/HCPCS: 93880

== ENCOUNTER → 2024-07-08 | Outpatient (CLI) | payer MEDICARE, OTHER, SELFPAY ==
[2022-09-17 13:22] VITALS: BMI 25.7
[2024-07-08 14:38] LABS: Mucous, Urine 0 SEEN /hpf (<or=2+)
[2024-07-08 17:32] LABS: Absolute Lymphocyte Count 0.91 X10^3/uL (0.83-4.51); Absolute Neutrophil Count 2.9 X10^3/uL (2.0-7.7); Basophil# 0.04 X10^3/uL; Basophil% 0.9 % (0-1); Eosinophil# 0.11 X10^3/uL; Eosinophils% 2.5 % (0-5); Hematocrit 37.2 % (37-47); Hemoglobin 11.9 g/dL (12.0-15.0); Lymphocyte # 0.91 X10^3/ul (0.83-4.51); Lymphocyte % 20.4 % (19-41); Mean Corpuscular Hgb 28.7 pg (27.0-32.0); Mean Corpuscular Volume 89.6 fL (81-99); Mean Platelet Vol. 11.4 fl (6.2-12.0); Monocyte# 0.47 X10^3/uL; Monocyte% 10.5 % (0-10); NRBC Flagged by Analyzer 0 % (0-5); Neutrophil # 2.91 X10^3/uL (2.7-7.7); Neutrophil % 65.3 % (47-70); Platelet Count 185 K/mm3 (150-450); RBC Distribution Width SD 45.8 fl (35.1-43.9); Red Blood Count 4.15 M/mm3 (4.2-5.4); White Blood Count 4.5 K/mm3 (4.4-11.0)
[2024-07-08 17:33] LABS: Color, Urine Yellow (Yellow); Glucose, Dipstick Normal (Normal); Ketone-Dipstick Negative (Negative); Leukocyte Esterase-Dipstick 500 /ul (Negative); Nitrite-Dipstick Negative (Negative); Occult Blood-Urine 10 /ul (Negative); Protein-Dipstick 15 mg/dl (Negative); Urine Bilirubin Dipstick Negative (Negative); Urine Clarity Clear (Clear); Urine Urobilinogen Normal (Normal); Urine pH 6.5 (5.0 - 8.0)
[2024-07-08 17:46] LABS: Bacteria 1+ /hpf (None Seen); Red Blood Cells-Urine 0-5 SEEN /hpf (0-5); Squamous Epithelial Cells - UA 0-5 SEEN /hpf (5-10); White Blood Cells 10-25 SEEN /hpf (0-5)
[2024-07-08 18:08] LABS: ALB/GLOB Ratio 1.2 RATIO (0.9-2.4); AST(SGOT) 25 U/L (15-37); Alanine Aminotransfer ALT/SGPT 23 U/L (13-56); Albumin, Serum 3.7 g/dL (3.2-5.0); Alkaline Phosphatase 83 U/L (45-117); Anion Gap 5 (5-15); BUN 16 mg/dL (7-18); BUN/Creat Ratio 14.8 RATIO (10-20); Calcium,Total 8.9 mg/dL (8.5-10.1); Chloride 107 mmol/L (98-107); Cholesterol 130 mg/dL (200); Creatinine, Serum 1.08 mg/dL (0.55-1.02); EST Glomerular Filtration Rate 52 mL/min (>60); Est Glom Filt Rate - Afr Amer 63 mL/min (>60); Globulin 3.1 g/dL (2.2-4.2); Glucose 101 mg/dL (74-106); High Density Lipoprotein 50 mg/dL; Potassium 4.2 mmol/L (3.5-5.1); Protein, Total 6.8 g/dL (6.4-8.2); Sodium Level 139 mmol/L (136-145); Triglycerides 150 mg/dL; Very Low Density Lipoprotein 30 mg/dL (5-40)
[2024-07-11 16:41] LABS: Vitamin B12 251 pg/mL (211-911)
[2024-07-11 16:45] LABS: Ferritin 45 ng/mL (8-252); Iron 58 ug/dL (50-170); Iron Binding Capacity,Total 252 ug/dL (250-450)
== END | disposition home or self-care (01) ==
LOC: MFPLAB 14:30
PROVIDERS: PCP Family Medicine; Referring Provider Family Medicine; Visit Provider Family Medicine
DX: I10 Essential (primary) hypertension (principal); R82.81 Pyuria; D64.9 Anemia, unspecified
CPT/HCPCS: 36415; 80053; 80061; 81001; 82607; 82728; 83540; 83550; 83735; 84443; 85025; 87077; 87086; 87088

== ENCOUNTER → 2024-11-04 | Outpatient (CLI) | payer MEDICARE, OTHER, SELFPAY ==
[2022-09-17 13:22] VITALS: BMI 25.7
[2024-11-04 17:44] LABS: Absolute Lymphocyte Count 0.78 X10^3/uL (0.83-4.51); Absolute Neutrophil Count 2.3 X10^3/uL (2.0-7.7); Basophil# 0.03 X10^3/uL; Basophil% 0.8 % (0-1); Eosinophil# 0.12 X10^3/uL; Eosinophils% 3.3 % (0-5); Hematocrit 35.7 % (37-47); Hemoglobin 11.7 g/dL (12.0-15.0); Lymphocyte # 0.78 X10^3/ul (0.83-4.51); Lymphocyte % 21.5 % (19-41); Mean Corp Hgb Conc 32.8 g/dL (32-36); Mean Corpuscular Hgb 29.2 pg (27.0-32.0); Mean Platelet Vol. 11.4 fl (6.2-12.0); Monocyte# 0.41 X10^3/uL; Monocyte% 11.3 % (0-10); NRBC Flagged by Analyzer 0 % (0-5); Neutrophil # 2.28 X10^3/uL (2.7-7.7); Neutrophil % 62.8 % (47-70); Platelet Count 183 K/mm3 (150-450); RBC Distribution Width CV 14.1 % (11.6-14.6); RBC Distribution Width SD 45.7 fl (35.1-43.9); Red Blood Count 4.01 M/mm3 (4.2-5.4); White Blood Count 3.6 K/mm3 (4.4-11.0)
[2024-11-04 18:33] LABS: PTHIN 49 pg/mL (11-61)
[2024-11-04 18:40] LABS: ALB/GLOB Ratio 1.4 RATIO (0.9-2.4); AST(SGOT) 27 U/L (<=31); Alanine Aminotransfer ALT/SGPT 17 U/L (<=34); Albumin, Serum 3.8 g/dL (3.4-4.8); Alkaline Phosphatase 75 U/L (35-104); Anion Gap 10 (5-15); BUN 21 mg/dL (4-19); BUN/Creat Ratio 16.2 RATIO (10-20); Calcium,Total 9.1 mg/dL (7.6-11.0); Carbon Dioxide 22.9 mmol/L (21.0-32.0); Chloride 104 mmol/L (98-108); Cholesterol 112 mg/dL (<=200); EST Glomerular Filtration Rate 42 (>60); Globulin 2.8 g/dL (2.2-4.2); Glucose 131 mg/dL (70-99); High Density Lipoprotein 38 mg/dL; Low Density Lipoprotein Calc. 45 mg/dL; Potassium 4.1 mmol/L (3.3-5.1); Protein, Total 6.6 g/dL (5.9-8.4); Sodium Level 137 mmol/L (133-145); Total Bilirubin 1.51 mg/dL (0.00-1.30); Triglycerides 145 mg/dL; Very Low Density Lipoprotein 29 mg/dL (5-40); cholesterol:hdl ratio screen 2.96
[2024-11-04 18:44] LABS: Vitamin D,25 Hydroxy 39.8 ng/mL (30-100)
[2024-11-04 20:16] LABS: Protein, Urine (Random) 24.2 mg/dL (0.0-12.0); Protein:Creat Ratio 160 mg/g CRE (0-200)
== END | disposition home or self-care (01) ==
LOC: MFPLAB 14:08
PROVIDERS: PCP Family Medicine; Referring Provider Family Medicine; Visit Provider Family Medicine
DX: I25.10 Atherosclerotic heart disease of native coronary artery without angina pectoris (principal); N18.30 Chronic kidney disease, stage 3 unspecified
CPT/HCPCS: 36415; 80053; 80061; 82306; 82570; 83970; 84156; 85025

== ENCOUNTER → 2024-11-17 | Outpatient (CLI) | payer MEDICARE, OTHER, SELFPAY ==
[2022-09-17 13:22] VITALS: BMI 25.7
--- NOTE | 2024-11-17 13:55 | CDU_ITS ---
Reason For Study Reason For Study: HX Lt CEA / Rt ICA Stenosis Rt. Velocities/BP Lt. Velocities/BP Prox CCA 114.3/19.4 cm/sec. Prox CCA 75.6/17.9 cm/sec. Mid CCA 107.0/21.2 cm/sec. Mid CCA 63.9/15.7 cm/sec. Dist CCA 75.3/16.3 cm/sec. Dist CCA 130.8/27.7 cm/sec. Prox ICA 250.8/86.0 cm/sec. Prox ICA 114.3/24.8 cm/sec. Mid ICA 212.1/69.8 cm/sec. Mid ICA 82.8/23.2 cm/sec. Dist ICA 126.4/27.7 cm/sec. Dist ICA 60.7/20.6 cm/sec. Rt. ICA/CCA = 2.3. Lt. ICA/CCA = 1.8. Prox ECA 108.9/18.9 cm/sec. Prox ECA 105.8/12.6 cm/sec. Rt. Vert. 77.1/14.7 cm/sec. Lt. Vert. 28.7/6.9 cm/sec. Right Extracranial There is homogeneous, smooth atherosclerotic plaque noted in the right common carotid artery. There is heterogeneous, irregular atherosclerotic plaque noted in the right internal carotid artery. The atherosclerotic plaque causes acoustic shadowing. There is heterogeneous, irregular atherosclerotic plaque noted in the right external carotid artery. Antegrade flow is noted in the right vertebral artery. Left Extracranial There is homogeneous, smooth atherosclerotic plaque noted in the left common carotid artery. There is heterogeneous, smooth atherosclerotic plaque noted in the left internal carotid artery. There is heterogeneous, smooth atherosclerotic plaque noted in the left external carotid artery. Antegrade flow is noted in the left vertebral artery. Procedure Carotid Duplex [id number]. This is a Carotid Duplex examination using B-mode, color flow and specral Doppler. The exam was diagnostic. Exam performed in department. VL/Carotid Duplex Ultrasound Interpretation Summary Severe (>70%) stenosis right extracranial internal carotid. Mild (<50%) stenosis left extracranial internal carotid. Patent and antegrade vertebrals bilaterally. Ordering Physician: Shelby Marrufo Referring Physician: Joni Barcenas Performed By: Ej Blackburn RVT
== END | disposition home or self-care (01) ==
PROVIDERS: PCP Family Medicine; Referring Provider Physician Assistant; Visit Provider Physician Assistant
DX: I65.23 Occlusion and stenosis of bilateral carotid arteries (principal)
CPT/HCPCS: 93880

== ENCOUNTER → 2025-03-09 | Outpatient (CLI) | payer MEDICARE, OTHER, SELFPAY ==
[2022-09-17 13:22] VITALS: BMI 25.7
[2025-03-09 17:53] LABS: Hematocrit 34.7 % (37-47); Hemoglobin 11.2 g/dL (12.0-15.0); Immature Granulocytes Count 0.000 X10^3/uL (0.0-0.0); Mean Corp Hgb Conc 32.3 g/dL (32-36); Mean Corpuscular Volume 89.9 fL (81-99); Mean Platelet Vol. 11.4 fl (6.2-12.0); NRBC Flagged by Analyzer 0 % (0-5); Platelet Count 203 K/mm3 (150-450); RBC Distribution Width CV 14.5 % (11.6-14.6); RBC Distribution Width SD 47.0 fl (35.1-43.9); Red Blood Count 3.86 M/mm3 (4.2-5.4); White Blood Count 5.6 K/mm3 (4.4-11.0)
[2025-03-09 18:39] LABS: AST(SGOT) 24 U/L (<=31); Alanine Aminotransfer ALT/SGPT 17 U/L (<=34); Albumin, Serum 3.8 g/dL (3.4-4.8); Alkaline Phosphatase 74 U/L (35-104); Anion Gap 11 (5-15); BUN 16 mg/dL (4-19); BUN/Creat Ratio 12.3 RATIO (10-20); Calcium,Total 9.3 mg/dL (7.6-11.0); Carbon Dioxide 24.3 mmol/L (21.0-32.0); Chloride 103 mmol/L (98-108); Cholesterol 128 mg/dL (<=200); Globulin 2.8 g/dL (2.2-4.2); Glucose 122 mg/dL (70-99); Low Density Lipoprotein Calc. 50 mg/dL; Magnesium 2.0 mg/dL (1.5-2.2); Potassium 4.3 mmol/L (3.3-5.1); Triglycerides 186 mg/dL; Very Low Density Lipoprotein 37 mg/dL (5-40); Vitamin D,25 Hydroxy 54.8 ng/mL (30-100); cholesterol:hdl ratio screen 3.14
[2025-03-10 10:28] LABS: Iron 73 ug/dL (50-170); Iron Binding Capacity,Total 236 ug/dL (250-450); Iron Binding Capacity,Unsat 163 ug/dL (228-428)
[2025-03-10 10:32] LABS: Ferritin 80 ng/mL (22-378); Vitamin B12 238 pg/mL (180-914)
== END | disposition home or self-care (01) ==
LOC: MFPLAB 15:13
PROVIDERS: PCP Family Medicine; Referring Provider Family Medicine; Visit Provider Family Medicine
DX: D64.9 Anemia, unspecified (principal); E78.5 Hyperlipidemia, unspecified; E55.9 Vitamin D deficiency, unspecified
CPT/HCPCS: 36415; 80053; 80061; 82306; 82607; 82728; 83540; 83550; 83735; 85025

== ENCOUNTER → 2025-05-24 | Outpatient (CLI) | payer MEDICARE, OTHER, SELFPAY ==
[2022-09-17 13:22] VITALS: BMI 25.7
--- NOTE | 2025-05-24 12:46 | CDU_ITS ---
Reason For Study Reason For Study: Lt CEA, Rt ICA stenosis Rt. Velocities/BP Lt. Velocities/BP Prox CCA 78.7/7.8 cm/sec. Prox CCA 65.4/6.5 cm/sec. Mid CCA 68.3/13.5 cm/sec. Mid CCA 71.6/9 cm/sec. Dist CCA 71.1/13.5 cm/sec. Dist CCA 121.1/13.3 cm/sec. Prox ICA 241.8/55.2 cm/sec. Prox ICA 101.1/16.3 cm/sec. Mid ICA 164.1/37.1 cm/sec. Mid ICA 71.6/11.4 cm/sec. Dist ICA 90/20 cm/sec. Dist ICA 49.8/10.2 cm/sec. Rt. ICA/CCA = 3.54. Lt. ICA/CCA = 1.41. Prox ECA 82.5 cm/sec. Prox ECA 115.6 cm/sec. Rt. Vert. 60.5/11.4 cm/sec. Lt. Vert. 30.5/7.8 cm/sec. Right Extracranial There is homogeneous, smooth atherosclerotic plaque noted in the right common carotid artery. There is heterogeneous, irregular atherosclerotic plaque noted in the right internal carotid artery. There is heterogeneous, irregular atherosclerotic plaque noted in the right external carotid artery. Antegrade flow is noted in the right vertebral artery. Left Extracranial There is homogeneous, smooth atherosclerotic plaque noted in the left common carotid artery. There is heterogeneous, smooth atherosclerotic plaque noted in the left internal carotid artery. There is heterogeneous, smooth atherosclerotic plaque noted in the left external carotid artery. Antegrade flow is noted in the left vertebral artery. Procedure Carotid Duplex [id number]. This is a Carotid Duplex examination using B-mode, color flow and specral Doppler. Exam performed in department. VL/Carotid Duplex Ultrasound Interpretation Summary Severe (>70%) stenosis right extracranial internal carotid. Mild (<50%) stenosis left extracranial internal carotid. Patent and antegrade vertebrals bilaterally. Ordering Physician: Shelby Marrufo Referring Physician: Joni Barcenas Performed By: Soraya Davis RVT
== END | disposition home or self-care (01) ==
LOC: CVS 12:46
PROVIDERS: PCP Family Medicine; Referring Provider Physician Assistant; Visit Provider Physician Assistant
DX: I65.23 Occlusion and stenosis of bilateral carotid arteries (principal)
CPT/HCPCS: 93880